=== PATIENT | male | born 1955 | race African-American/Black ===

== ENCOUNTER 2016-11-16 17:06 | Inpatient (IN) | payer MEDICAID ==
[~2016-11-16] VITALS: Ht 160 cm; Wt 45.2 kg
[~2016-11-16 17:06] MED LIST: DILA4TAB10 PO; MOTR200T PO
[2016-11-16 17:13] VITALS: BP 141/90; PULSE 84; RESP 16; TEMP 97.7
[2016-11-16] MEDS ORDERED: SODIUM CHLOR 0.9% 1000 ML INJ 1,000 ML IV ONE ×2 (17:14→17:44)
[2016-11-16] MEDS ORDERED: DEXTROSE 50% IN WATER 50 ML SYRINGE IV ONE ×2 (17:15→19:30)
--- NOTE | 2016-11-16 17:18 | PD ---
HPI Chief Complaint: Altered Mental Status Time Seen by Provider: 17:17 Travel History International Travel<30 days: No Contact w/Intl Traveler<30days: No Traveled to known affect area: No History of Present Illness HPI 61-year-old Afro-[place]ian male with history of small cell cancer is brought in via EMS with altered mental status. Patient was essentially found unresponsive with a blood sugar 16. He has no history of diabetes in the past. States she has been taking his oxycodone for his cancer pain, and was recently treated for the oncology department on 19 October. 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 Patient continues to smoke and drink alcohol according to the last oncology note. Patient's blood sugar upon arrival 65. He is responsive and talkative although somewhat lethargic. Patient complains of pain "all over". He appears extremely dehydrated, but makes good eye contact. Patient does have a history of mood disorder and suicidal ideation in the past. Patient states he has had no alcohol today. Patient states he has had seizures in the past but not drinking. He is unsure if he had a seizure today. He has allergies to penicillin. PFSH Past Medical History Blood Disorders: No Heart Rhythm Problems: No Cancer: Yes (NEWLY DIAGNOSED 12/16/15) Cardiovascular Problems: Yes High Cholesterol: Yes Chest Pain: No Congestive Heart Failure: No Diabetes: No Diminished Hearing: No Endocrine: No Genitourinary: No Hypertension: Yes Immune Disorder: No Musculoskeletal: Yes (PLATES IN BILATERAL JAW) Neurologic: No Psychiatric: No Reproductive: No Respiratory: No Immunizations Current: Yes Past Surgical History AICD: No Joint Replacement: No Pacemaker: No Other Surgery: Yes (LEFT AND RIGHT JAW FRACTURE WITH PLATES) Social History Alcohol Use: Yes (3 DRINKS A DAY) Tobacco Use: Yes (2-3 CIG PER DAY) Substance Use: Yes (MARIJUANA DAILY and cocaine) Allergies-Medications (Allergen,Severity, Reaction): Coded Allergies: Penicillin (Verified Allergy, Severe, Hives, 01/12/16) Per pt. Reported Meds & Prescriptions Reported Meds & Active Scripts Active Reported Dilaudid (Hydromorphone HCl) 4 Mg Tab 1-2 Tab PO Q3HR PRN Ibuprofen 200 Mg Tab 1-2 Tab PO DAILY PRN Review of Systems ROS Limitations: Altered Mental Status, Poor Historian Except as stated in HPI: all other systems reviewed are Neg General / Constitutional: No: Fever Eyes: No: Visual changes HENT: No: Headaches Cardiovascular: No: Chest Pain or Discomfort Respiratory: No: Shortness of Breath Gastrointestinal: No: Abdominal Pain Genitourinary: No: Dysuria Musculoskeletal: No: Pain Skin: No Rash Neurologic: No: Weakness Psychiatric: No: Depression Endocrine: No: Polydipsia Hematologic/Lymphatic: No: Easy Bruising Physical Exam Exam Limitations: Altered Mental Status, Poor Historian Narrative GENERAL: Patient is arousable but lethargic. He appears alert and oriented 3. He answers questions appropriately does not appear intoxicated SKIN: Warm and dry. Poor pallor. Very Poor turgor. Tenting present. HEAD: Atraumatic. Normocephalic. EYES: Pupils equal and round. No scleral icterus. No injection or drainage. ENT: No nasal bleeding or discharge. Mucous membranes pink and dry. Pharynx is clear. Airway is patent. NECK: Trachea midline. Supple and nontender. No palpable masses. CARDIOVASCULAR: Regular rate and rhythm. No murmurs gallops or rubs. RESPIRATORY: No accessory muscle use. Clear to auscultation. Breath sounds equal bilaterally. GASTROINTESTINAL: Abdomen soft, non-tender, nondistended. Hepatic and splenic margins not palpable. MUSCULOSKELETAL: Extremities without clubbing, cyanosis, or edema. No obvious deformities. NEUROLOGICAL: Awake and alert. No obvious cranial nerve deficits. Motor grossly within normal limits. Five out of 5 muscle strength in the arms and legs. Normal speech. PSYCHIATRIC: Appropriate mood and affect; insight and judgment normal. Patient denies suicidal or homicidal ideation. He denies recent alcohol or drug use. Data Data Last Documented VS Vital Signs Date Time Temp Pulse Resp B/P Pulse Ox O2 Delivery O2 Flow Rate FiO2 11/16/16 19:04 96 Nasal Cannula 2 11/16/16 17:13 97.7 84 16 141/90 Orders Electrocardiogram (11/16/16 17:14) Complete Blood Count With Diff (11/16/16 17:14) Comprehensive Metabolic Panel (11/16/16 17:14) Magnesium (Mg) (11/16/16 17:14) Phosphorus (Po4) (11/16/16 17:14) Beta Hydroxybutyrate (Acetone) (11/16/16 17:14) Osmolality,Serum (11/16/16 17:14) Lactic Acid (11/16/16 17:14) Urinalysis - C+S If Indicated (11/16/16 17:14) Blood Glucose (11/16/16 17:14) Blood Glucose (11/16/16 17:44) Ecg Monitoring (11/16/16 17:14) Iv Access Insert/Monitor (11/16/16 17:14) Oximetry (11/16/16 17:14) NPO (11/16/16 17:14) Sodium Chlor 0.9% 1000 Ml Inj (Ns 1000 M (11/16/16 17:14) Sodium Chlor 0.9% 1000 Ml Inj (Ns 1000 M (11/16/16 17:44) Sodium Chloride 0.9% Flush (Ns Flush) (11/16/16 17:15) Troponin I (11/16/16 17:14) Lipase (11/16/16 17:14) Dextrose 50% In Shirin (Syr) Inj (D50w (Syr (11/16/16 17:15) Ammonia (11/16/16 17:16) Blood Culture (11/16/16 17:16) Chest, Single Ap (11/16/16 17:16) Drug Screen, Random Urine (11/16/16 17:16) Alcohol (Ethanol) (11/16/16 17:16) Ct Brain W/O Iv Contrast(Rout) (11/16/16 17:27) Urine Culture (11/16/16 17:40) Levofloxacin 500 Mg Premix Inj (Levaquin (11/16/16 19:00) Lactulose Liq (Lactulose Liq) (11/16/16 19:15) Dextrose 50% In Shirin (Syr) Inj (D50w (Syr (11/16/16 19:30) Thiamine Inj (Thiamine Inj) (11/16/16 19:30) Cefepime Inj (Maxipime Inj) (11/16/16 19:45) Sodium Chlor 0.9% 1000 Ml Inj (Ns 1000 M (11/16/16 19:48) Insert Temp Sensing Richards Cath (11/16/16 19:52) Labs Laboratory Tests Test 11/16/16 11/16/16 17:40 18:08 White Blood Count 7.2 TH/MM3 Red Blood Count 4.81 MIL/MM3 Hemoglobin 16.3 GM/DL Hematocrit 50.6 % Mean Corpuscular Volume 105.4 FL Mean Corpuscular Hemoglobin 34.0 PG Mean Corpuscular Hemoglobin 32.2 % Concent Red Cell Distribution Width 14.3 % Platelet Count 61 TH/MM3 Mean Platelet Volume 10.2 FL Neutrophils (%) (Auto) 84.5 % Lymphocytes (%) (Auto) 4.7 % Monocytes (%) (Auto) 10.6 % Eosinophils (%) (Auto) 0.0 % Basophils (%) (Auto) 0.2 % Neutrophils # (Auto) 6.1 TH/MM3 Lymphocytes # (Auto) 0.3 TH/MM3 Monocytes # (Auto) 0.8 TH/MM3 Eosinophils # (Auto) 0.0 TH/MM3 Basophils # (Auto) 0.0 TH/MM3 CBC Comment AUTO DIFF Differential Total Cells 100 Counted Neutrophils % (Manual) 75 % Band Neutrophils % 6 % Lymphocytes % 4 % Monocytes % 9 % Neutrophils # (Manual) 6.3 TH/MM3 Metamyelocytes 4 % Myelocytes 2 % Differential Comment FINAL DIFF MANUAL Atypical Lymphocytes % Platelet Estimate LOW Platelet Morphology Comment ENLARGED [place] Cells 1+ Urine Color YELLOW Urine Turbidity HAZY Urine pH 5.5 Urine Specific [place] 1.014 Urine Protein 30 mg/dL Urine Glucose (UA) NEG mg/dL Urine Ketones NEG mg/dL Urine Occult Blood LARGE Urine Nitrite NEG Urine Bilirubin NEG Urine Urobilinogen LESS THAN 2.0 MG/DL Urine Leukocyte Esterase NEG Urine RBC 24 /hpf Urine WBC 15 /hpf Urine Bacteria RARE /hpf Urine Hyaline Casts 50 /lpf Urine Sperm OCC Microscopic Urinalysis Comment CULTURE INDICATED Sodium Level 144 MEQ/L Potassium Level 5.0 MEQ/L Chloride Level 110 MEQ/L Carbon Dioxide Level 22.0 MEQ/L Anion Gap 12 MEQ/L Blood Urea Nitrogen 143 MG/DL Creatinine 2.57 MG/DL Estimat Glomerular Filtration 31 ML/MIN Rate Random Glucose 165 MG/DL Serum Osmolality 354 MOSM/KG Lactic Acid Level 1.7 mmol/L Calcium Level 7.7 MG/DL Phosphorus Level 7.3 MG/DL Magnesium Level 3.0 MG/DL Total Bilirubin 5.1 MG/DL Aspartate Amino Transf 2362 U/L (AST/SGOT) Alanine Aminotransferase 1198 U/L (ALT/SGPT) Alkaline Phosphatase 1123 U/L Troponin I 1.06 NG/ML Total Protein 4.8 GM/DL Albumin 2.3 GM/DL Lipase 337 U/L B-Hydroxybutyrate 0.18 MMOL/L Ammonia 108 MCMOL/L [facility] Medical Decision Making Medical Screen Exam Complete: Yes Emergency Medical Condition: Yes Medical Record Reviewed: Yes Differential Diagnosis Seizure. Altered mental status. Dehydration. Electrolyte imbalance. Narrative Course Patient is felt to be septic. Labs ordered including CBC, CMP, lactic acid, ammonia level, cardiac panel, blood cultures 2, serum osmolality and urinalysis. Urine drug screen and serum alcohol level is ordered. Beta hydroxybutyrate is also ordered. Chest x-ray, EKG, and CT of the head is ordered. IV access is obtained and the patient is given 1 amp of D50, and 2 L normal saline IV bolus. Urinalysis shows possible urinary tract infection. IV cefepime 1 g IV is ordered. CBC shows no obvious leukocytosis, but there is a right shift. Platelets are low at 61. CMP shows normal electrolytes, but a BUN of 143, creatinine of 2.57, and glucose 165, calcium is 7.7, phosphorus 7.3, magnesium 3.0, total bilirubin was 5.1, AST is 2362, ALP is 1198, alkaline phosphatase is 1123, troponin is 1.06. Ammonia level is elevated at 108, and serum osmolality is 354. Lactic acid is 1.7. Patient is discussed with Dr. Lozoya at 2100 hrs. EKG is reviewed showing normal sinus rhythm with PVCs. She recommends a third liter of normal saline, as well as thiamine 100 mg IV, as well as lactulose 30 mg liquid by mouth. She recommended a Richards but the patient refused. Call was placed to the senior project architect, and Dr. Alexander spoke with Dr. Cazares who accepted the patient for admission. Diagnosis Primary Impression: Altered mental status Qualified Code: R40.0 - Somnolence Additional Impressions: Acute hepatitis Hepatorenal syndrome Severe dehydration Sepsis Qualified Code: A41.9 - Sepsis, due to unspecified organism Admitting Information Admitting Physician Requests: Admit Condition: Stable Nikita Berman Nov 16, 2016 17:17
--- NOTE | 2016-11-16 17:38 | RADRPT ---
EXAM DATE/TIME: 11/16/2016 17:26 [facility] COMPARISON: CHEST PA & LAT, December 16, 2015, 9:19. CHEST SINGLE AP, May 10, 2015, 11:53. INDICATIONS : Syncope MEDICAL HISTORY : Hypertension. SURGICAL HISTORY : Left mandible, infusaport ENCOUNTER: Initial ACUITY: 1 day PAIN SCORE: Non-responsive. LOCATION: Bilateral chest FINDINGS: A single view of the chest demonstrates the lungs to be symmetrically aerated without evidence of mas s, infiltrate or effusion. A large bleb is again noted left lung. There has been interval placement of a right-sided implantable port catheter. There are overlying echocardiogram leads and oxygen tubin g. There is an old fracture deformity left clavicle. The cardiomediastinal contours are unremarkable. Osseous structures are intact. CONCLUSION: 1. No acute cardiopulmonary disease. 2. Stable large bleb in the left lung. Rizwan Tyson MD on November 16, 2016 at 17:35 Board Certified Radiologist. This report was verified electronically.
[2016-11-16 18:29] LABS: BACTERIA, URINE RARE /hpf; BLOOD, URINE LARGE (NEG); COMMENT (UR) CULTURE INDICATED; CULTURE IF INDICATED CULTURE INDICATED; GLUCOSE,URINE NEG (NEG); HYALINE CAST, URINE 50 /lpf (RARE); KETONE, URINE NEG (NEG); NITRITE,URINE NEG (NEG); PH, URINE 5.5 (5.0-8.5); URINE COLOR YELLOW (YELLW/STRAW)
[2016-11-16 18:48] LABS: ANION GAP 12 MEQ/L (5-15)
[2016-11-16 18:54] LABS: AUTOMATED NEUTROPHIL # 6.1 TH/MM3 (1.8-7.7); BASOPHIL % 0.2 % (0.0-2.0); HEMATOCRIT 50.6 % (39.0-51.0); LYMPH % 4.7 % (9.0-44.0); LYMPHOCYTE # 0.3 TH/MM3 (1.0-4.8); MEAN CELL VOLUME 105.4 FL (80.0-100.0); MEAN CORPUSCULAR HGB CONC 32.2 % (32.0-36.0); MONO % 10.6 % (0.0-8.0); NEUT % 84.5 % (16.0-70.0); PLATELET COUNT 61 TH/MM3 (150-450); RED BLOOD COUNT 4.81 MIL/MM3 (4.50-5.90); RED CELL DISTRIBUTION WIDTH 14.3 % (11.6-17.2); WHITE BLOOD COUNT 7.2 TH/MM3 (4.0-11.0)
[2016-11-16 19:00] VITALS: BP 136/87; PULSE 88; RESP 18; O2SAT 98
[2016-11-16] MEDS ORDERED: LEVOFLOXACIN 500 MG PREMIX INJ 100 ML IV ONE (19:00)
[2016-11-16 19:04] VITALS: O2SAT 96
[2016-11-16 19:10] LABS: BETA-HYDROXYBUTYRATE 0.18 MMOL/L (0.00-0.39); BLOOD UREA NITROGEN 143 MG/DL (7-18); CHLORIDE 110 MEQ/L (98-107); GLOMERULAR FILTRATION RATE 31 ML/MIN (>89); SODIUM (NA) 144 MEQ/L (136-145); TOTAL BILIRUBIN ADULT 5.1 MG/DL (0.2-1.0)
[2016-11-16] MEDS ORDERED: LACTULOSE SYRUP 20 GM/30 ML CUP PO ONE (19:15)
[2016-11-16 19:17] LABS: ALKALINE PHOSPHATASE 1123 U/L (45-117); ALT (GPT) 1198 U/L (12-78)
--- NOTE | 2016-11-16 19:20 | RADRPT ---
EXAM DATE/TIME: 11/16/2016 19:06 [facility] COMPARISON: CT BRAIN W/O CONTRAST, May 10, 2015, 13:05. INDICATIONS : Altered mental status. RADIATION DOSE: 33.09 CTDIvol (mGy) MEDICAL HISTORY : Hypertension. Carcinoma, not otherwise specified. SURGICAL HISTORY : None. ENCOUNTER: Initial ACUITY: 1 day PAIN SCALE: Non-responsive LOCATION: cranial TECHNIQUE: Multiple contiguous axial images were obtained of the head. Using automated exposure control and adjustment of the mA and/or kV according to patient size, radiation dose was kept as low as reasonably achievable to obtain optimal diagnostic quality images. FINDINGS: There is no evidence for intracranial hemorrhage, mass effect, mass lesions, or edema. The visualize d bony structures appear intact. Slight degree of brain atrophy is seen. Slight periventricular whit e matter changes are seen nonspecific mostly consistent with chronic small vessel ischemic changes. There are no signs of acute infarction for technique. CONCLUSION: Slight atrophic and small vessel ischemic changes without any evidence for acute hemorrhage or mass effect. Davin Salinas MD on November 16, 2016 at 19:17 Board Certified Radiologist. This report was verified electronically.
[2016-11-16 19:25] LABS: HEMO FLAGS AUTO DIFF
[2016-11-16] MEDS ORDERED: THIAMINE INJ 100 MG in SODIUM CHLORIDE 0.9% INJ 100 ML IV ONE (19:30)
--- NOTE | 2016-11-16 19:38 | PD ---
Physical Exam Date Seen by Provider: Nov 16, 2016 Time Seen by Provider: 18:30 Narrative I, Dr. Luna, have reviewed the advance practice practitioner's documentation and am in agreement, met with the patient face to face, made the diagnosis, and the medical decision making was done by me. *My assessment and Findings: Patient seen and evaluated with PA, please see PA note for further details. Here for significant hypoglycemia, disorientation, improved with glucose. On evaluation, patient is fairly cachectic, states he has not been eating or drinking well and I suspect that he may be significantly dehydrated with electrolyte abnormalities. Initial IV fluids and lab work was ordered. Workup was ordered. Patient will likely need to be admitted for further treatment. Laboratory Tests Test 11/16/16 11/16/16 17:40 18:08 Mean Corpuscular Volume 105.4 FL (80.0-100.0) Platelet Count 61 TH/MM3 (150-450) Neutrophils (%) (Auto) 84.5 % (16.0-70.0) Lymphocytes (%) (Auto) 4.7 % (9.0-44.0) Monocytes (%) (Auto) 10.6 % (0.0-8.0) Lymphocytes # (Auto) 0.3 TH/MM3 (1.0-4.8) Urine Turbidity HAZY (CLEAR) Urine Protein 30 mg/dL (NEG-TRACE) Urine Occult Blood LARGE (NEG) Urine RBC 24 /hpf (0-3) Urine WBC 15 /hpf (0-5) Urine Bacteria RARE /hpf (NONE) Urine Sperm OCC (NONE) Serum Osmolality 354 MOSM/KG (275-295) Ammonia 108 MCMOL/L (11-32) Last [address] 11/16/161726 Signed Impressions: Service Date/Time: October 19:06 - CONCLUSION: Slight atrophic and small vessel ischemic changes without any evidence for acute hemorrhage or mass effect. Davin Salinas MD Chest X-Ray 11/16/166 Signed Impressions: Service Date/Time: October 17:26 - CONCLUSION: 1. No acute cardiopulmonary disease. 2. Stable large bleb in the left lung. Rizwan Tyson MD He has a UTI and IV antibiotics have been ordered for the patient. Awaiting metabolic panel for further treatment and admission. Data Data Last Documented VS Vital Signs Date Time Temp Pulse Resp B/P Pulse Ox O2 Delivery O2 Flow Rate FiO2 11/16/16 19:04 96 Nasal Cannula 2 11/16/16 17:13 97.7 84 16 141/90 Orders Electrocardiogram (11/16/16 17:14) Complete Blood Count With Diff (11/16/16 17:14) Comprehensive Metabolic Panel (11/16/16 17:14) Magnesium (Mg) (11/16/16 17:14) Phosphorus (Po4) (11/16/16 17:14) Beta Hydroxybutyrate (Acetone) (11/16/16 17:14) Osmolality,Serum (11/16/16 17:14) Lactic Acid (11/16/16 17:14) Urinalysis - C+S If Indicated (11/16/16 17:14) Blood Glucose (11/16/16 17:14) Blood Glucose (11/16/16 17:44) Ecg Monitoring (11/16/16 17:14) Iv Access Insert/Monitor (11/16/16 17:14) Oximetry (11/16/16 17:14) NPO (11/16/16 17:14) Sodium Chlor 0.9% 1000 Ml Inj (Ns 1000 M (11/16/16 17:14) Sodium Chlor 0.9% 1000 Ml Inj (Ns 1000 M (11/16/16 17:44) Sodium Chloride 0.9% Flush (Ns Flush) (11/16/16 17:15) Troponin I (11/16/16 17:14) Lipase (11/16/16 17:14) Dextrose 50% In Shirin (Syr) Inj (D50w (Syr (11/16/16 17:15) Ammonia (11/16/16 17:16) Blood Culture (11/16/16 17:16) Chest, Single Ap (11/16/16 17:16) Drug Screen, Random Urine (11/16/16 17:16) Alcohol (Ethanol) (11/16/16 17:16) Ct Brain W/O Iv Contrast(Rout) (11/16/16 17:27) Urine Culture (11/16/16 17:40) Levofloxacin 500 Mg Premix Inj (Levaquin (11/16/16 19:00) Lactulose Liq (Lactulose Liq) (11/16/16 19:15) Dextrose 50% In Shirin (Syr) Inj (D50w (Syr (11/16/16 19:30) Thiamine Inj (Thiamine Inj) (11/16/16 19:30) Labs Laboratory Tests Test 11/16/16 11/16/16 17:40 18:08 White Blood Count 7.2 TH/MM3 Red Blood Count 4.81 MIL/MM3 Hemoglobin 16.3 GM/DL Hematocrit 50.6 % Mean Corpuscular Volume 105.4 FL Mean Corpuscular Hemoglobin 34.0 PG Mean Corpuscular Hemoglobin 32.2 % Concent Red Cell Distribution Width 14.3 % Platelet Count 61 TH/MM3 Mean Platelet Volume 10.2 FL Neutrophils (%) (Auto) 84.5 % Lymphocytes (%) (Auto) 4.7 % Monocytes (%) (Auto) 10.6 % Eosinophils (%) (Auto) 0.0 % Basophils (%) (Auto) 0.2 % Neutrophils # (Auto) 6.1 TH/MM3 Lymphocytes # (Auto) 0.3 TH/MM3 Monocytes # (Auto) 0.8 TH/MM3 Eosinophils # (Auto) 0.0 TH/MM3 Basophils # (Auto) 0.0 TH/MM3 CBC Comment AUTO DIFF Urine Color YELLOW Urine Turbidity HAZY Urine pH 5.5 Urine Specific [place] 1.014 Urine Protein 30 mg/dL Urine Glucose (UA) NEG mg/dL Urine Ketones NEG mg/dL Urine Occult Blood LARGE Urine Nitrite NEG Urine Bilirubin NEG Urine Urobilinogen LESS THAN 2.0 MG/DL Urine Leukocyte Esterase NEG Urine RBC 24 /hpf Urine WBC 15 /hpf Urine Bacteria RARE /hpf Urine Hyaline Casts 50 /lpf Urine Sperm OCC Microscopic Urinalysis Comment CULTURE INDICATED Serum Osmolality 354 MOSM/KG Lactic Acid Level 1.7 mmol/L Ammonia 108 MCMOL/L [facility] Medical Record Reviewed: Yes Supervised Visit with KHANH: Yes Diagnosis Primary Impression: Severe dehydration Additional Impressions: Hypoglycemia UTI (urinary tract infection) Admitting Information Admitting Physician Requests: Chris Bustos MD Nov 16, 2016 19:37
[2016-11-16 19:39] LABS: BANDS 6 % (0-6); METAMYELOCYTES 4 % (0-1); MYELOCYTES 2 % (0-0); NEUTROPHIL # MANUAL DIFF 6.3 TH/MM3 (1.8-7.7); PLATELET ESTIMATE SMEAR LOW (NORMAL); POLYS (SEG NEUTROPHILS) 75 % (16-70); SCAN/DIFF FINAL DIFF MANUAL; WBC DIFF SAMPLE 100
[2016-11-16 19:40] LABS: BURR CELLS 1+ (NORMAL)
[2016-11-16 19:41] LABS: PLATELET MORPHOLOGY ENLARGED (NORMAL)
[2016-11-16] MEDS ORDERED: CEFEPIME INJ 1,000 MG in SODIUM CHLORIDE 0.9% INJ 100 ML IV ONE (19:45)
[2016-11-16] MEDS ORDERED: SODIUM CHLOR 0.9% 1000 ML INJ 1,000 ML IV SCH (19:48)
[2016-11-16 20:01] LABS: AST (GOT) 2362 U/L (15-37)
--- NOTE | 2016-11-16 20:05 | PD ---
Physical Exam Date Seen by Provider: Nov 16, 2016 Time Seen by Provider: 19:54 Narrative 61-year-old male came to the emergency room brought by EMS with cachexia, failure to thrive, history of cancer and chronic pain. Patient was initially seen by the PA and since 7 PM I have been supervising him. Patient has been hypoglycemic and has received D50 times twice so far. He has also received 2 L of IV fluid bolus. He is getting antibiotic as per sepsis protocol as well. Lab work has been slowly coming back and they're grossly abnormal. Patient has significant left-sided shift of his WBC count. Platelet count is low. Chemistries suggestive off liver failure/acute hepatitis. Ammonia is very high along with serum osmolality. I asked the PA to give a third liter of IV fluid bolus, repeat blood glucose at 8 PM, he'll actually low and a Richards catheter for urine output monitoring. I went and saw the patient little bit ago and he looks extremely cachectic but he has been answering questions appropriately. He is jaundiced and says that he cannot warm up. Patient will need to be admitted to the ICU. Currently awaiting for the parts back counter man to call back. His troponin is elevated as well but I think it's part of his dehydration and sepsis. Data Data Last Documented VS Vital Signs Date Time Temp Pulse Resp B/P Pulse Ox O2 Delivery O2 Flow Rate FiO2 11/16/16 19:04 96 Nasal Cannula 2 11/16/16 19:00 88 18 136/87 11/16/16 17:13 97.7 Orders Electrocardiogram (11/16/16 17:14) Complete Blood Count With Diff (11/16/16 17:14) Comprehensive Metabolic Panel (11/16/16 17:14) Magnesium (Mg) (11/16/16 17:14) Phosphorus (Po4) (11/16/16 17:14) Beta Hydroxybutyrate (Acetone) (11/16/16 17:14) Osmolality,Serum (11/16/16 17:14) Lactic Acid (11/16/16 17:14) Urinalysis - C+S If Indicated (11/16/16 17:14) Blood Glucose (11/16/16 17:14) Blood Glucose (11/16/16 17:44) Ecg Monitoring (11/16/16 17:14) Iv Access Insert/Monitor (11/16/16 17:14) Oximetry (11/16/16 17:14) NPO (11/16/16 17:14) Sodium Chlor 0.9% 1000 Ml Inj (Ns 1000 M (11/16/16 17:14) Sodium Chlor 0.9% 1000 Ml Inj (Ns 1000 M (11/16/16 17:44) Sodium Chloride 0.9% Flush (Ns Flush) (11/16/16 17:15) Troponin I (11/16/16 17:14) Lipase (11/16/16 17:14) Dextrose 50% In Shirin (Syr) Inj (D50w (Syr (11/16/16 17:15) Ammonia (11/16/16 17:16) Blood Culture (11/16/16 17:16) Chest, Single Ap (11/16/16 17:16) Drug Screen, Random Urine (11/16/16 17:16) Alcohol (Ethanol) (11/16/16 17:16) Ct Brain W/O Iv Contrast(Rout) (11/16/16 17:27) Urine Culture (11/16/16 17:40) Levofloxacin 500 Mg Premix Inj (Levaquin (11/16/16 19:00) Lactulose Liq (Lactulose Liq) (11/16/16 19:15) Dextrose 50% In Shirin (Syr) Inj (D50w (Syr (11/16/16 19:30) Thiamine Inj (Thiamine Inj) (11/16/16 19:30) Cefepime Inj (Maxipime Inj) (11/16/16 19:45) Sodium Chlor 0.9% 1000 Ml Inj (Ns 1000 M (11/16/16 19:48) Insert Temp Sensing Richards Cath (11/16/16 19:52) Admit Order (Ed Use Only) (11/16/16 20:04) Dextrose 5%-Lactated Ring Inj (D5-Lr Inj (11/16/16 21:06) Labs Laboratory Tests Test 11/16/16 11/16/16 17:40 18:08 White Blood Count 7.2 TH/MM3 Red Blood Count 4.81 MIL/MM3 Hemoglobin 16.3 GM/DL Hematocrit 50.6 % Mean Corpuscular Volume 105.4 FL Mean Corpuscular Hemoglobin 34.0 PG Mean Corpuscular Hemoglobin 32.2 % Concent Red Cell Distribution Width 14.3 % Platelet Count 61 TH/MM3 Mean Platelet Volume 10.2 FL Neutrophils (%) (Auto) 84.5 % Lymphocytes (%) (Auto) 4.7 % Monocytes (%) (Auto) 10.6 % Eosinophils (%) (Auto) 0.0 % Basophils (%) (Auto) 0.2 % Neutrophils # (Auto) 6.1 TH/MM3 Lymphocytes # (Auto) 0.3 TH/MM3 Monocytes # (Auto) 0.8 TH/MM3 Eosinophils # (Auto) 0.0 TH/MM3 Basophils # (Auto) 0.0 TH/MM3 CBC Comment AUTO DIFF Differential Total Cells 100 Counted Neutrophils % (Manual) 75 % Band Neutrophils % 6 % Lymphocytes % 4 % Monocytes % 9 % Neutrophils # (Manual) 6.3 TH/MM3 Metamyelocytes 4 % Myelocytes 2 % Differential Comment FINAL DIFF MANUAL Atypical Lymphocytes % Platelet Estimate LOW Platelet Morphology Comment ENLARGED [place] Cells 1+ Urine Color YELLOW Urine Turbidity HAZY Urine pH 5.5 Urine Specific [place] 1.014 Urine Protein 30 mg/dL Urine Glucose (UA) NEG mg/dL Urine Ketones NEG mg/dL Urine Occult Blood LARGE Urine Nitrite NEG Urine Bilirubin NEG Urine Urobilinogen LESS THAN 2.0 MG/DL Urine Leukocyte Esterase NEG Urine RBC 24 /hpf Urine WBC 15 /hpf Urine Bacteria RARE /hpf Urine Hyaline Casts 50 /lpf Urine Sperm OCC Microscopic Urinalysis Comment CULTURE INDICATED Sodium Level 144 MEQ/L Potassium Level 5.0 MEQ/L Chloride Level 110 MEQ/L Carbon Dioxide Level 22.0 MEQ/L Anion Gap 12 MEQ/L Blood Urea Nitrogen 143 MG/DL Creatinine 2.57 MG/DL Estimat Glomerular Filtration 31 ML/MIN Rate Random Glucose 165 MG/DL Serum Osmolality 354 MOSM/KG Lactic Acid Level 1.7 mmol/L Calcium Level 7.7 MG/DL Phosphorus Level 7.3 MG/DL Magnesium Level 3.0 MG/DL Total Bilirubin 5.1 MG/DL Aspartate Amino Transf 2362 U/L (AST/SGOT) Alanine Aminotransferase 1198 U/L (ALT/SGPT) Alkaline Phosphatase 1123 U/L Total Creatine Kinase 999 U/L Creatine Kinase MB 7.4 NG/ML Creatine Kinase MB % 0.7 % Troponin I 1.06 NG/ML Total Protein 4.8 GM/DL Albumin 2.3 GM/DL Lipase 337 U/L Salicylates Level LESS THAN 1.7 MG/DL Urine Opiates Screen NEG Urine Barbiturates Screen NEG Urine Amphetamines Screen NEG Urine Benzodiazepines Screen NEG Urine Cocaine Screen POS Urine Cannabinoids Screen POS B-Hydroxybutyrate 0.18 MMOL/L Ammonia 108 MCMOL/L Vitamin B12 Level GREATER THAN 2000 PG/ML Folate GREATER THAN 20.0 NG/ML Acetaminophen Level LESS THAN 2.0 MCG/ML Ethyl Alcohol Level LESS THAN 3 MG/DL MDM Supervised Visit with KHANH: Yes Critical Care Narrative Aggregate critical care time was 30 minutes. Time to perform other separately billable procedures was not included in the critical care time. My time did not include minutes spent treating any other patients simultaneously or on activities that did not directly contribute to the patient's treatment. The services I provided to this patient were to treat and/or prevent clinically significant deterioration that could result in: Sepsis, severe dehydration, acute hepatitis, failure to thrive I provided critical care services requiring my management, as noted below: Chart data review, documentation time, medication orders and management, vital sign assessments/reviewing monitor data, ordering and reviewing lab tests, ordering and interpreting/reviewing x-rays and diagnostic studies, care of the patient and discussion of the patient with the admitting physicians. Physician Communication Physician Communication Dr. Cazares Diagnosis Primary Impression: Severe dehydration Additional Impressions: Hypoglycemia UTI (urinary tract infection) Sepsis Qualified Code: A41.9 - Sepsis, due to unspecified organism Acute hepatitis Failure to thrive in adult stool Hemoccult positive Hyperammonemia Altered mental status Qualified Code: R40.0 - Somnolence Hepatorenal syndrome Admitting Information Admitting Physician Requests: Leta Flores MD Nov 16, 2016 20:05
[2016-11-16] MEDS: SODIUM CHLORIDE 0.9% FLUSH 10 ML FLUSH IVF PRN ×2 (20:16→21:59)
[2016-11-16 20:18] LABS: AMPHETAMINE, URINE NEG (NEG); BARBITURATES, URINE NEG (NEG); COCAINE, URINE POS (NEG)
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
[2016-11-16] MEDS ORDERED: DEXTROSE 5%-LACTATED RING INJ 1,000 ML IV SCH (21:06)
[2016-11-16] MEDS ORDERED: DIATRIZOATE MEGLUM/DIATRIZOATE SOD 9 ML CUP PO ONE (21:45)
[2016-11-16] MEDS: HYDROmorphone HCL PF 1 MG/ML VIAL IV PUSH PRN (21:59)
[2016-11-16 22:00] VITALS: BP 124/81; PULSE 80; RESP 18; O2SAT 96
[2016-11-16] MEDS ORDERED: RESP: ALBUTEROL 2.5 MG/3 ML NEB (PRN) INH (22:15)
[2016-11-16] MEDS ORDERED: MISCELLANEOUS NURSING INFORMATION XX SCH (22:15)
[2016-11-16] MEDS ORDERED: BISACODYL 10 MG SUPP RECTAL PRN (22:15)
[2016-11-16] MEDS ORDERED: CHLORHEXIDINE GLUCONATE 2 % 1 PACK (2 CLOTHS) TOP PRN (22:15)
[2016-11-16] MEDS ORDERED: ONDANSETRON HCL 4 MG/2 ML VIAL IV PRN (22:15)
[2016-11-16] MEDS ORDERED: SODIUM CHLORIDE 0.9% FLUSH 10 ML FLUSH PRN (22:15)
[2016-11-16] MEDS: RIFAXIMIN 550 MG TAB PO SCH (22:15)
[2016-11-16] MEDS: DEXT 5%-NACL 0.9% 1000 ML INJ 1,000 ML IV SCH (22:17)
--- NOTE | 2016-11-16 23:42 | RADRPT ---
EXAM DATE/TIME: 11/16/2016 22:10 [facility] COMPARISON: No previous studies available for comparison. INDICATIONS : Cirrhosis. MEDICAL HISTORY : Hypercholesterolemia. Hypertension. Substance use. Cancer. SURGICAL HISTORY : Plates in bilateral jaw. ENCOUNTER: Initial ACUITY: 1 day PAIN SCORE: 8/10 LOCATION: Bilateral upper quadrant MEASUREMENTS: LIVER: 13.4 cm length COMMON DUCT: 3 mm RIGHT KIDNEY: 8.8 x 5.3 x 4.3 cm SPLEEN: 8.1 cm length FINDINGS: LIVER: Small liver with diffusely heterogeneous echotexture noted. No focal hepatic lesion demonstrated. The re is normal flow direction main portal vein. Small ascites is present. COMMON DUCT: No intraluminal mass or stone visualized. GALLBLADDER: Small amount of floating debris within the contained bile. No shadowing stone. Gallbladder wall appro ximately 3 mm, upper limits of normal. Some of the ascites is in the gallbladder fossa. PANCREAS: The visualized portions are within normal limits. RIGHT KIDNEY: Diffusely echogenic. There are cysts measuring 12 mm of the upper pole and 20 mm of the mid zone. SPLEEN: No focal lesion. CONCLUSION: 1. Small and diffusely heterogeneous liver without a focal lesion. There is small ascites but no sple nomegaly. 2. Small sludge/debris within the gallbladder. No evidence of biliary obstruction. 3. Echogenic right kidney typical of chronic parenchymal disease. There is no hydronephrosis. Small, simple/benign cysts are noted. Jose Saucedo MD on November 16, 2016 at 23:37 Board Certified Radiologist. This report was verified electronically.
[2016-11-16 23:45] LABS: CKMB 7.4 NG/ML (0.5-3.6)
[2016-11-17] VITALS (12 sets, daily range): BP systolic 122–154; BP diastolic 85–108; PULSE 58–78; RESP 9–18; TEMP 97.5–98.8; O2SAT 95–99
--- NOTE | 2016-11-17 00:28 | RADRPT ---
EXAM DATE/TIME: 11/16/2016 23:55 [facility] COMPARISON: No previous studies available for comparison. INDICATIONS : Abdominal pain. ORAL CONTRAST: Partial prescribed oral contrast ingested. RADIATION DOSE: 4.52 CTDIvol (mGy) MEDICAL HISTORY : Carcinoma, not otherwise specified. Hypercholesterolemia. Hypertension. SURGICAL HISTORY : None. ENCOUNTER: Initial ACUITY: 1 day PAIN SCALE: 5/10 LOCATION: All quadrants. TECHNIQUE: Volumetric scanning of the abdomen and pelvis was performed. Using automated exposure control and ad justment of the mA and/or kV according to patient size, radiation dose was kept as low as reasonably achievable to obtain optimal diagnostic quality images. FINDINGS: Small liver. No focal hepatic lesions seen. There is small, diffuse ascites. No splenomegaly. Portal vein does not appear appreciably enlarged. Noncontrast appearance of the pancreas, adrenal glands and kidneys within normal limits. No abdominal aortic aneurysm. No perceptible bowel obstruction or acute inflammatory changes. There is moderate s tool throughout the colon. Large, chronic appearing blebs/bullae seen in both visualized lung bases. No effusions or pneumonia s een. Visualized osseous structures are intact. Patient appears diffusely cachectic. There is mild body wall edema/anasarca. Visualized osseous structures are intact. Broad but mainly right paracentral disc protrusion seen at L4/L5 and probably impinging on the transiting right L5 nerve root. Patient is partially sacralized o n the right at L5 with associated mild degenerative changes. CONCLUSION: 1. Small liver with small ascites and diffuse body wall edema/anasarca. 2. No focal lesion or localized inflammatory changes are demonstrated. 3. Large bleb/bullae seen of both visualized lung bases. 4. Lumbar spine findings as above, including a right paracentral disc protrusion at L4/L5. Jose Saucedo MD on November 17, 2016 at 0:19 Board Certified Radiologist. This report was verified electronically.
[2016-11-17 03:39] LABS: APTT (PATIENT) 36.4 SEC (24.3-30.1); INTERNATIONAL NORMALIZED RATIO 2.1 RATIO; PROTHROMBIN TIME - PATIENT 23.9 SEC (9.8-11.6)
[2016-11-17] MEDS: CHLORHEXIDINE GLUCONATE 2 % 1 PACK (2 CLOTHS) TOP SCH (04:00)
[2016-11-17 04:35] LABS: AUTOMATED NEUTROPHIL # 5.3 TH/MM3 (1.8-7.7); BASOPHIL % 0.2 % (0.0-2.0); EOSINOPHIL % 0.1 % (0.0-4.0); HEMATOCRIT 48.8 % (39.0-51.0); LYMPH % 3.6 % (9.0-44.0); LYMPHOCYTE # 0.2 TH/MM3 (1.0-4.8); MEAN CELL VOLUME 104.3 FL (80.0-100.0); MEAN CORPUSCULAR HEMOGLOBIN 34.9 PG (27.0-34.0); MEAN CORPUSCULAR HGB CONC 33.4 % (32.0-36.0); MONO % 7.5 % (0.0-8.0); NEUT % 88.6 % (16.0-70.0); PLATELET COUNT 64 TH/MM3 (150-450); RED BLOOD COUNT 4.68 MIL/MM3 (4.50-5.90); RED CELL DISTRIBUTION WIDTH 14.2 % (11.6-17.2)
[2016-11-17 04:48] LABS: HEMO FLAGS AUTO DIFF
[2016-11-17 05:36] LABS: ALKALINE PHOSPHATASE 1297 U/L (45-117); ALT (GPT) 1271 U/L (12-78); ANION GAP 11 MEQ/L (5-15); AST (GOT) 2130 U/L (15-37); BICARBONATE 22.7 MEQ/L (21.0-32.0); BLOOD UREA NITROGEN 135 MG/DL (7-18); CHLORIDE 113 MEQ/L (98-107); GLOMERULAR FILTRATION RATE 36 ML/MIN (>89); POTASSIUM 4.2 MEQ/L (3.5-5.1); SODIUM (NA) 147 MEQ/L (136-145); TOTAL BILIRUBIN ADULT 6.3 MG/DL (0.2-1.0)
[2016-11-17] MEDS: DEXT 5%-NACL 0.9% 1000 ML INJ 1,000 ML IV SCH (07:15)
--- NOTE | 2016-11-17 07:45 | EKG ---
Date Performed: 11/16/2016 Time Performed: 23:47:00 PTAGE: 61 years EKG: Sinus rhythm Nonspecific T wave changes ABNORMAL ECG COMPARED TO PRIOR ELECTROCARDIOGRAM, Premature ectopic beats are no longer present. PREVIOUS TRACING : 11/16/2016 20.00 DOCTOR: Ganesh Baires Interpretating Date/Time 11/17/2016 07:43:56
--- NOTE | 2016-11-17 07:51 | EKG ---
Date Performed: 11/16/2016 Time Performed: 20:00:21 PTAGE: 61 years EKG: Sinus rhythm WITH Frequent ectopic beats and/or artifact. Nonspecific T wave changes ABNORMAL ECG COMPARED TO GRACIE OR ELECTROCARDIOGRAM, Ectopy is present and T wave changes have worsened. PREVIOUS TRACING : 05/10/2015 11.31 DOCTOR: Ganesh Baires Interpretating Date/Time 11/17/2016 07:49:55
[2016-11-17] MEDS: MULTIVITAMIN TAB PO SCH (08:22)
[2016-11-17] MEDS: PANTOPRAZOLE SODIUM 40 MG VIAL IV SCH (08:22)
[2016-11-17] MEDS: FOLIC ACID 1 MG TAB PO SCH (08:22)
[2016-11-17] MEDS: NYSTAT/DIPHENHY/LIDO MOUTHWASH (Adult) 120ML SWISH-SWAL SCH ×4 (08:23→20:41)
[2016-11-17] MEDS: RIFAXIMIN 550 MG TAB PO SCH ×2 (08:23→20:41)
[2016-11-17] MEDS: DOCUSATE SODIUM 100 MG CAP PO SCH ×2 (08:23→20:40)
[2016-11-17] MEDS: SODIUM CHLORIDE 0.9% FLUSH 10 ML FLUSH SCH ×2 (08:24→20:40)
[2016-11-17 08:53] LABS: BANDS 8 % (0-6); NEUTROPHIL # MANUAL DIFF 5.3 TH/MM3 (1.8-7.7); POLYS (SEG NEUTROPHILS) 80 % (16-70); WBC DIFF SAMPLE 100
[2016-11-17 08:54] LABS: BURR CELLS 1+ (NORMAL); KERATOCYTES OCC (NORMAL); PLATELET ESTIMATE SMEAR LOW (NORMAL); PLATELET MORPHOLOGY NORMAL (NORMAL)
[2016-11-17 08:55] LABS: SCAN/DIFF FINAL DIFF MANUAL
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
--- NOTE | 2016-11-17 10:10 | EKG ---
Date Performed: 11/17/2016 Time Performed: 01:38:52 PTAGE: 61 years EKG: Sinus rhythm Prolonged QT interval Nonspecific T wave changes Low QRS voltages in limb leads Abnormal ECG NO SIGN IFICANT CHANGE FROM PRIOR ELECTROCARDIOGRAM. PREVIOUS TRACING : 11/16/2016 23.47 DOCTOR: Ganesh Baires Interpretating Date/Time 11/17/2016 10:09:49
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
[2016-11-17] MEDS: DEXT 5%-NACL 0.45% 1000 ML INJ 1,000 ML IV SCH ×2 (11:00→21:08)
[2016-11-17 11:55] LABS: INTERNATIONAL NORMALIZED RATIO 1.8 RATIO; PROTHROMBIN TIME - PATIENT 20.9 SEC (9.8-11.6)
[2016-11-17 12:42] LABS: FERRITIN 3505 NG/ML (26-388); TRANSFERRIN IRON PROFILE 98 MG/DL (200-360)
--- NOTE | 2016-11-17 15:54 | EC ---
Study Study Date:11/17/2016 STUDY CONCLUSIONS SUMMARY - Left ventricle: The cavity size was dilated. Wall thickness was normal. Large thrombus in the left ventricle. Systolic function was severely reduced. The estimated ejection fraction was 20%. Wall motion was normal; there were no regional wall motion abnormalities. - Mitral valve: Mild regurgitation. - Tricuspid valve: Mild regurgitation. Impressions: Intracardiac thrombus. If LV function is below 40, please consider prescribing an ACEI or ARB or document rationale for non-use. PROCEDURE DATA STUDY STATUS: Elective. Procedure: Transthoracic echocardiography. Image quality was good. Scanning was performed from the parasternal, apical, and subcostal acoustic windows. Study completion: The patient tolerated the procedure well. Transthoracic echocardiography. M-mode, complete 2D, complete spectral Doppler, and color Doppler. Height: Height: 63in. Weight: Weight: 93.8lb. Body mass index: BMI: 16.7kg/m^2. Body surface area: BSA: 1.4m^2. Patient status: Inpatient. CARDIAC ANATOMY LEFT VENTRICLE: The cavity size was dilated. Wall thickness was normal. Large thrombus in the left ventricle. Systolic function was severely reduced. The estimated ejection fraction was 20%. Wall motion was normal; there were no regional wall motion abnormalities. AORTIC VALVE: Trileaflet; normal thickness leaflets. Doppler: Transvalvular velocity was within the normal range. There was no stenosis. No regurgitation. Valve area: 2.16cm^2(VTI). Indexed valve area: 1.54cm^2/m^2 (VTI). Valve area: 2.37cm^2 (Vmax). Indexed valve area: 1.69cm^2/m^2 (Vmax). Mean gradient: 1mm Hg (S). AORTA: Aortic root: The aortic root was normal in size. MITRAL VALVE: Structurally normal valve. Doppler: Transvalvular velocity was within the normal range. There was no evidence for stenosis. Mild regurgitation. LEFT ATRIUM: The atrium was normal in size. RIGHT VENTRICLE: The cavity size was normal. Wall thickness was normal. PULMONIC VALVE: Doppler: Transvalvular velocity was within the normal range. There was no evidence for stenosis. No regurgitation. TRICUSPID VALVE: Structurally normal valve. Doppler: Transvalvular velocity was within the normal range. Mild regurgitation. PULMONARY ARTERY: The main pulmonary artery was normal-sized. Systolic pressure was within the normal range. RIGHT ATRIUM: The atrium was normal in size. PERICARDIUM: There was no pericardial effusion. SYSTEMIC VEINS: Inferior vena cava: The vessel was normal in size. Patient weight: 93.8lb _Ejection fraction:_ 65-75% _Fractional shortening:_ 32% up to 5Kg 5-11.5Kg 11.6-22.9Kg 23-45Kg 45-57Kg Aortic Root 7-13 <17 13-22 17-27 17-27 LA diam 6-13 <23 24-38 33-47 37-40 RVID 10-17 7-15 7-15 7-18 8-17 LVIDd 12-22 <32 24-38 33-47 37-40 LVPW 2-4 3-6 5-7 6-8 7-8 IVS 2-4 3-6 5-7 6-8 7-8 BASIC MEASUREMENTS ADULT NORMAL Left ventricle LV internal dimension, ED, chordal 44.9 mm 43-52 level, PLAX LV internal dimension, ES, chordal *41.9 mm 23-38 level, PLAX Fractional shortening, chordal level, *7 % >29 PLAX LV posterior wall thickness, ED 9.79 mm IVS/LVPW ratio, ED 0.99 <1.3 Ventricular septum Septal thickness, ED 9.7 mm Aortic valve Leaflet separation 19 mm 15-26 Aorta Root diameter, ED 31 mm Left atrium Anterior-posterior dimension 21 mm Anterior-posterior dimension index 1.5 cm/m^2 <2.2 BASIC MEASUREMENTS ADULT NORMAL Aortic valve Leaflet separation 19 mm 15-26 DOPPLER MEASUREMENTS ADULT NORMAL Main pulmonary artery Pressure, S 22 mm Hg =30 Aortic valve Peak velocity, S 67.6 cm/s Mean velocity, S 44.2 cm/s VTI, S 10.5 cm Mean gradient, S 1 mm Hg Valve area, VTI 2.16 cm^2 Valve area index, VTI 1.54 cm^2/m^2 Valve area, Vmax 2.37 cm^2 Valve area index, Vmax 1.69 cm^2/m^2 Mitral valve Peak E-wave velocity 35 cm/s Peak A-wave velocity 67.1 cm/s Deceleration time *120 ms 150-230 Peak E/A ratio 0.5 Tricuspid valve Regurgitant peak velocity 185 cm/s Peak RV-RA gradient, S 14 mm Hg Maximal regurgitant velocity 185 cm/s Systemic veins Estimated CVP 10 mm Hg Right ventricle RV pressure, S 24 mm Hg <30 Pulmonic valve Peak velocity, S 61.6 cm/s LEGEND: Mean values are shown as u=mean value. Asterisk (*) lopez values outside specified normal range. Prepared and signed by Sunitha Santos [id number]
[2016-11-17] MEDS ORDERED: HEPARIN SODIUM - IV 10,000 UNITS/10 ML VIAL IV STA (17:26)
[2016-11-17] MEDS ORDERED: HEPARIN-D5W INJ 250 ML IV SCH (17:30)
[2016-11-17 18:07] LABS: HEMATOCRIT 47.2 % (39.0-51.0); MEAN CORPUSCULAR HEMOGLOBIN 34.4 PG (27.0-34.0); MEAN CORPUSCULAR HGB CONC 32.7 % (32.0-36.0); PLATELET COUNT 52 TH/MM3 (150-450); RED BLOOD COUNT 4.49 MIL/MM3 (4.50-5.90); RED CELL DISTRIBUTION WIDTH 14.6 % (11.6-17.2); WHITE BLOOD COUNT 5.6 TH/MM3 (4.0-11.0)
[2016-11-17 18:09] LABS: REVIEW FLAG AUTO DIFF
[2016-11-17 18:26] LABS: APTT (PATIENT) 31.6 SEC (24.3-30.1); INTERNATIONAL NORMALIZED RATIO 1.7 RATIO; PROTHROMBIN TIME - PATIENT 19.4 SEC (9.8-11.6)
--- NOTE | 2016-11-17 19:01 | HHI.CCPN ---
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 He underwent chemotherapy (TPF) and radiation in 2015 and had residual disease. He also has a long standing history of alcohol abuse, tobacco abuse, cocaine abuse and has had poor compliance with followup with heme-oncology. He is a very difficult historian and is currently encephalopathic, so it is difficult for me to ascertain what his most recent chemo/radiation history has been. According to notes from Dr. Marc Escalona, 09/15/16 he was supposed to start concurrent chemo/ radiation. Pt states that he has been on radiation therapy 5 days a week as recently as a week ago. He states his last chemo therapy was "earlier this year " but that he has not been following up for chemo. He is homeless and states that he resides in a garage on [address]. He indicates that he has been taking hydromorphone 4 mg tabs for pain and gets 60 tabs a week. He states he ran out 2 days ago and he complains of pain and is repeatedly requesting hydromorphone. He also indicates that he has had difficulty eating because of pain and that, while he takes minimal amounts of Boost and Ensure at baseline, that he has had nothing to eat or drink for about 2 days. States he has never had a PEG (despite recommendations for one) and states "I never want one either ". Denies vomiting. States he has been constipated for about 2 weeks. Has had a slight cough, + chills. Had difficulty recalling last EtOH intake, said it may have been about 2 days ago. ED workup reveals creatinine of 2.57 (baseline 0.9- 1), AST 2300, ALT 1100, total bilirubin 5.1, lipase normal. Ammonia level is 108. Coags not yet performed. Lactic acid was 1.7. Troponin is 1.06. He has received 1/2 amps of D50 x2 for hypoglycemia (POC glucose 58). He has received 3 L NS bolus and was placed on D5 LR in the ED. Received cefepime and Levaquin. 11/17: Remains drowsy, arousable, knows he is at the hospital. Not in any acute distress currently. 2-D echo revealed LV thrombus so he was initiated on heparin for anticoagulation. Objective Vital Signs Date Time Temp Pulse Resp B/P Pulse Ox O2 Delivery O2 Flow Rate FiO2 11/17/16 12:00 97.9 58 18 122/87 95 11/16/16 22:00 Nasal Cannula 11/16/16 19:04 2 Result Diagram: 11/17/16 1745 11/17/16 0358 Other Results Microbiology Date/Time Procedure Status Source Growth 11/16/16 17:40 Urine Culture - Final Complete Urine Clean Catch 50-100,000 CFU/ML MIXED GRAM POSITIVE... Imaging Last Impressions Head CT 11/16/16 1727 Signed Impressions: Service Date/Time: October 19:06 - CONCLUSION: Slight atrophic and small vessel ischemic changes without any evidence for acute hemorrhage or mass effect. Davin Salinas MD Chest X-Ray 11/16/16 1716 Signed Impressions: Service Date/Time: October 17:26 - CONCLUSION: 1. No acute cardiopulmonary disease. 2. Stable large bleb in the left lung. Rizwan Tyson MD Liver Ultrasound 11/16/16 0000 Signed Impressions: Service Date/Time: October 22:10 - CONCLUSION: 1. Small and diffusely heterogeneous liver without a focal lesion. There is small ascites but no splenomegaly. 2. Small sludge/debris within the gallbladder. No evidence of biliary obstruction. 3. Echogenic right kidney typical of chronic parenchymal disease. There is no hydronephrosis. Small, simple/benign cysts are noted. Jose Saucedo MD Abdomen/Pelvis CT 11/16/16 0000 Signed Impressions: Service Date/Time: October 23:55 - CONCLUSION: 1. Small liver with small ascites and diffuse body wall edema/anasarca. 2. No focal lesion or localized inflammatory changes are demonstrated. 3. Large bleb/bullae seen of both visualized lung bases. 4. Lumbar spine findings as above, including a right paracentral disc protrusion at L4/L5. Jose Saucedo MD Objective Remarks GENERAL:Emaciated frail appearing male laying in bed not in any acute distress SKIN: peripherally cool, dry. HEAD: Atraumatic. Normocephalic. EYES: Pupils equal and round, reactive. +icteric. ENT: No nasal bleeding or discharge. Mucous membranes dry with mucositis on tongue. Palpable ~1.5 cm nodule at left angle of mandible. NECK: Trachea midline. no JVD. CHEST: mass like deformity of distal Left clavicle. CARDIOVASCULAR: occasional irregular beat, 2/6 systolic murmur RSM. RESPIRATORY: Port right chest. CTAB, no w/r/rhonchi. GASTROINTESTINAL: Abdomen scaphoid, vague diffuse abdominal tenderness, no rebound. Bowel sounds sluggish MUSCULOSKELETAL: Extremities without clubbing, cyanosis, or edema. No obvious deformities. NEUROLOGICAL: Awake and conversant but confused at times. No obvious cranial nerve deficits. Moves all extremities without focal deficits A/P Assessment and Plan NEURO: Failure to thrive Acute metabolic encephalopathy/hepatic encephalopathy Cocaine abuse Marijuana abuse Alcohol abuse Hyperammonemia Has hepatic encephalopathy. Severe volume depletion currently so will hold off on lactulose for now. Rifaximin 550 mg by mouth twice a day. Follow-up ammonia level. CT brain - no acute abnormality UDS positive for cocaine, THC. Checked APAP and ASA which are negative. RESP: Tobacco abuse L lung bleb Nasal cannula wean as tolerated. Albuterol every 2 hours as needed. CV: Hyperlipidemia History of hypertension Elevated troponin, ? cocaine induced vs type II NSTEMI in setting of multiorgan dysfunction. Follow serial troponins and EKG. Echo with LVEF 20%, LV thrombus. Discussed with Dr. Santos from cardiology who was consulted and we are starting anticoagulation with heparin. H/o hyperlipidemia but not candidate for statin at this time due to elevated LFTs. GI: Dysphagia Severe chronic protein energy malnutrition Jaundice, Elevated LFTs Constipation Acute liver failure may be secondary to alcoholic hepatitis, chemotherapeutic/ drug toxicity, metastatic disease, infectious/sepsis. Likely underlying cirrhosis. Check Tylenol level and check coags. Obtain RUQ u/s and CT abd/pelvis. NPO currently except meds. Speech therapy to evaluate swallow, GI for possible esophageal dilation versus PEG (though patient states he would refuse PEG) Magic mouthwash for mucositis. FEN/RENAL: Acute kidney injury Acute rhabdomyolysis Hypermagnesemia Hyperphosphatemia Strict intake output, monitor I/O. Monitor creatinine and electrolytes. Check CPK, urine eos, FeNa, renal u/s. Clinically appears volume depleted. We'll fluid resuscitate and follow up BMP. d5 0.9 NaCl at 125 mL per hour ID: Follow up urine and blood culture.Followup urine and blood culture Given dose of vancomycin to cover for sepsis in setting of port. Has h/o pcn allergy, tolerated cefepime in ED so will continue empirically for sepsis/SBP tx /prophylaxis. HEME: Stage IV Squamous cell carcinoma head and neck Erythrocyte macrocytosis Consulted heme-oncology, patient known to Dr. Escalona ENDO: Acute hypoglycemia Monitor glucose q 4hours. D5NS @ 125 ml/hr. PROPH: SCDs for DVT prophylaxis. Will check coags. Initiate heparin subcutaneous for DVT prophylaxis if appropriate. Protonix 40 mg IV daily for stress ulcer prophylaxis. ACCESS: R chest port. PIV in place Patient with failure to thrive and poor adherence to therapy for stage IV squamous cell carcinoma of head and neck now with multiorgan dysfunction and poor prognosis. Adherence must be exceedingly challenging given his social circumstances and polysubstance dependence. He told me that he wants his brother , Sly Arcos, to make medical decisions on his behalf when he is unable to make decisions. He currently is able to provide some history but he does not appear fully capacitated for medical decision making as he is confused at times and had inconsistent responses to the same questions. Nonetheless, attempted to discuss code status and he states he is FULL CODE. Consulted palliative care medicine to help facilitate decisions regarding goals of care D/W Family at bedside. D/w Dr. Santos. Angel Merritt MD Nov 17, 2016 19:01
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
[2016-11-17] MEDS: CEFEPIME INJ 2,000 MG in SODIUM CHLORIDE 0.9% INJ 100 ML IV SCH (20:40)
[2016-11-17] MEDS: HYDROmorphone HCL PF 1 MG/ML VIAL IV PUSH PRN (20:41)
[2016-11-17] MEDS: LACTULOSE SYRUP 20 GM/30 ML CUP PO SCH (20:41)
[2016-11-17] MEDS: MULTIVITAMIN INJ 10 ML, FOLIC ACID INJ 1 MG in SODIUM CHLORID 0.9% 500 ML INJ 500 ML IV SCH (21:08)
[2016-11-17] MEDS: THIAMINE INJ 100 MG in SODIUM CHLORIDE 0.9% INJ 100 ML IV SCH (21:58)
[2016-11-17] MEDS ORDERED: HEPARIN SODIUM - IV 10,000 UNITS/10 ML VIAL IV PRN ×2 (23:30)
[2016-11-18] VITALS (12 sets, daily range): BP systolic 120–137; BP diastolic 84–94; PULSE 54–71; RESP 9–19; TEMP 97.2–98.2; O2SAT 92–98
[2016-11-18] MEDS: HYDROmorphone HCL PF 1 MG/ML VIAL IV PUSH PRN ×4 (03:12→20:26)
[2016-11-18 03:24] LABS: APTT (PATIENT) GREATER THAN 153.4 SEC (24.3-30.1)
[2016-11-18] MEDS: CHLORHEXIDINE GLUCONATE 2 % 1 PACK (2 CLOTHS) TOP SCH (04:00)
[2016-11-18 07:08] LABS: HEMATOCRIT 46.6 % (39.0-51.0); MEAN CELL VOLUME 104.5 FL (80.0-100.0); MEAN CORPUSCULAR HEMOGLOBIN 34.1 PG (27.0-34.0); MEAN CORPUSCULAR HGB CONC 32.6 % (32.0-36.0); PLATELET COUNT 43 TH/MM3 (150-450); RED BLOOD COUNT 4.46 MIL/MM3 (4.50-5.90); RED CELL DISTRIBUTION WIDTH 14.5 % (11.6-17.2); WHITE BLOOD COUNT 5.7 TH/MM3 (4.0-11.0)
[2016-11-18 07:16] LABS: ALKALINE PHOSPHATASE 999 U/L (45-117); ALT (GPT) 809 U/L (12-78); ANION GAP 9 MEQ/L (5-15); AST (GOT) 923 U/L (15-37); BICARBONATE 28.4 MEQ/L (21.0-32.0); BLOOD UREA NITROGEN 94 MG/DL (7-18); CHLORIDE 115 MEQ/L (98-107); GLOMERULAR FILTRATION RATE 58 ML/MIN (>89); MAGNESIUM 2.3 MG/DL (1.5-2.5); POTASSIUM 3.2 MEQ/L (3.5-5.1); SODIUM (NA) 152 MEQ/L (136-145); TOTAL BILIRUBIN ADULT 3.3 MG/DL (0.2-1.0)
[2016-11-18 07:43] LABS: APTT (PATIENT) GREATER THAN 153.4 SEC (24.3-30.1)
[2016-11-18 07:51] LABS: HEMO FLAGS AUTO DIFF
[2016-11-18] MEDS: NYSTAT/DIPHENHY/LIDO MOUTHWASH (Adult) 120ML SWISH-SWAL SCH ×5 (09:00→20:31)
[2016-11-18] MEDS: FOLIC ACID 1 MG TAB PO SCH (09:08)
[2016-11-18] MEDS: RIFAXIMIN 550 MG TAB PO SCH ×2 (09:08→20:30)
[2016-11-18] MEDS: LACTULOSE SYRUP 20 GM/30 ML CUP PO SCH ×2 (09:08→20:12)
[2016-11-18] MEDS: PANTOPRAZOLE SODIUM 40 MG VIAL IV SCH (09:08)
[2016-11-18] MEDS: DOCUSATE SODIUM 100 MG CAP PO SCH ×2 (09:09→20:11)
[2016-11-18] MEDS: SODIUM CHLORIDE 0.9% FLUSH 10 ML FLUSH SCH ×2 (09:09→20:30)
[2016-11-18] MEDS: THIAMINE INJ 100 MG in SODIUM CHLORIDE 0.9% INJ 100 ML IV SCH (09:09)
[2016-11-18] MEDS: MULTIVITAMIN TAB PO SCH (09:09)
[2016-11-18] MEDS ORDERED: POTASSIUM CHLORIDE 10 MEQ CONTROLLED RELEASE TAB PO ONE (09:30)
--- NOTE | 2016-11-18 10:38 | HHI.NPPN ---
Subjective Interval History he is more alert today. Answers a few questions. Poor appetite. Apparently did well on swallowing evaluation. Review of Systems General Constitutional: Fatigue, Weight Change Objective Data Data 11/17/16 11/18/16 19:00 07:00 Intake Total 1939 ml Output Total 800 ml 1650 ml Balance -800 ml 289 ml Intake Oral 360 ml IV Total 1579 ml Output Urine Total 800 ml 1650 ml # Bowel Movements 0 Vital Signs Date Time Temp Pulse Resp B/P Pulse Ox O2 Delivery O2 Flow Rate FiO2 11/18/16 06:00 57 11/18/16 04:00 55 11/18/16 04:00 98.2 55 9 130/87 94 11/18/16 02:00 62 11/18/16 00:00 97.9 65 11 120/91 98 11/18/16 00:00 65 11/17/16 22:00 63 11/17/16 20:00 68 11/17/16 20:00 97.9 68 9 144/89 98 11/17/16 18:00 62 11/17/16 16:00 98.8 63 16 139/85 95 11/17/16 16:00 71 11/17/16 14:00 58 11/17/16 12:00 97.9 58 18 122/87 95 11/17/16 12:00 58 -: 11/18/16 0546 11/18/16 0546 Physical Exam General Appearance: Malnourished Eyes Eye Exam: Pupils Equal Throat Throat Exam: Oral Mucosa [place] & Moist Neck Neck Exam: Neck Supple Pulmonary Resp Exam: Clear Bilaterally Cardiology CV Exam: Regular, Normal Sinus Rhythm Gastrointestinal/Abdomen GI Exam: Soft, Non-Tender, Bowel Sounds Present Musculoskeletal MS Exam: Joints Intact MS Remarks muscle wasting. Emaciated. Neurologic Neuro Exam: Moving All Extremities Assessment/Plan Problem List: (1) MINO (acute kidney injury) Plan: Renal function continues to improve. suspected dehydration, prerenal with decreased intravascular volume depletion; although he does admit to taking NSAIDs for pain daily Replace potassium. imaging negative for acute obstruction Non oliguric. Avoid nephrotoxic agents. (2) Failure to thrive in adult Plan: palliative has been consulted encourage nutrition, hydration continue IVF , refusing PEG tube for nutrition (3) Hypertension Plan: BP acceptable he is not on any antihypertensives at this time (4) Acute hepatitis Plan: GI following, work up in progress avoid hepatotoxic medications (5) Hypernatremia Plan: change IVF to D51/4NS. (6) Hypokalemia Plan: Replace. Po Booker MD Nov 18, 2016 10:38
[2016-11-18] MEDS ORDERED: POTASSIUM CHLORIDE 20 MEQ CONTROLLED RELEASE TAB PO ONE (10:45)
[2016-11-18] MEDS: POTASSIUM CHLOR 20 MEQ PREMIX 100 ML IV SCH ×2 (11:29→13:41)
[2016-11-18] MEDS: DEXTROSE 5%-NACL 0.225% INJ 1,000 ML IV SCH (11:29)
[2016-11-18 11:50] LABS: BANDS 2 % (0-6); BURR CELLS 1+ (NORMAL); NEUTROPHIL # MANUAL DIFF 5.2 TH/MM3 (1.8-7.7); POLYS (SEG NEUTROPHILS) 90 % (16-70); TARGET CELLS 1+ (NORMAL); TOXIC VACUOLATION PRESENT (NONE SEEN); WBC DIFF SAMPLE 100
[2016-11-18 11:51] LABS: ACANTHOCYTES 1+ (NORMAL); PLATELET ESTIMATE SMEAR LOW (NORMAL); PLATELET MORPHOLOGY NORMAL (NORMAL); SCAN/DIFF FINAL DIFF MANUAL
--- NOTE | 2016-11-18 13:51 | PD.ONC.PN ---
Subjective Subjective Remarks Patient evaluated. Consult Note Dictated. Advanced Head and Neck Cancer with hx of non-compliance, polysubstance abuse/ narcotic seeking behavior. Has multi-organ failure Would recommend palliative care from his Malignancy perspective. Not a candidate for any treatment due to poor PFS/multiple co-morbidities and above mentioned issues Has thrombocytopenia and coagulopathy--will r/o DIC, hemolysis etc. Cryo and Vitamin K as needed.. Will follow Objective Data Date Time Temp Pulse Resp B/P Pulse Ox O2 Delivery O2 Flow Rate FiO2 11/18/16 12:00 71 11/18/16 12:00 97.2 71 19 123/84 95 11/18/16 10:00 65 11/18/16 09:38 12 11/18/16 08:00 54 11/18/16 08:00 98.1 54 14 134/92 92 11/18/16 06:00 57 11/18/16 04:00 55 11/18/16 04:00 98.2 55 9 130/87 94 11/18/16 02:00 62 11/18/16 00:00 97.9 65 11 120/91 98 11/18/16 00:00 65 11/17/16 22:00 63 11/17/16 20:00 68 11/17/16 20:00 97.9 68 9 144/89 98 11/17/16 18:00 62 11/17/16 16:00 98.8 63 16 139/85 95 11/17/16 16:00 71 11/17/16 14:00 58 11/18/16 11/18/16 11/18/16 07:00 15:00 23:00 Intake Total 1128 ml Output Total 1000 ml Balance 128 ml Result Diagram: 11/18/16 0546 11/18/16 0546 Laboratory Results Laboratory Tests Test 11/17/16 11/18/16 11/18/16 11/18/16 17:45 02:27 05:46 06:15 White Blood Count 5.6 TH/MM3 5.7 TH/MM3 Red Blood Count 4.49 MIL/MM3 4.46 MIL/MM3 Hemoglobin 15.4 GM/DL 15.2 GM/DL Hematocrit 47.2 % 46.6 % Mean Corpuscular Volume 105.0 FL 104.5 FL Mean Corpuscular Hemoglobin 34.4 PG 34.1 PG Mean Corpuscular Hemoglobin 32.7 % 32.6 % Concent Red Cell Distribution Width 14.6 % 14.5 % Platelet Count 52 TH/MM3 43 TH/MM3 Mean Platelet Volume 9.9 FL 9.7 FL Prothrombin Time 19.4 SEC Prothromb Time International 1.7 RATIO Ratio Activated Partial 31.6 SEC GREATER THAN GREATER THAN Thromboplast Time 153.4 SEC 153.4 SEC Neutrophils (%) (Auto) % Lymphocytes (%) (Auto) % Monocytes (%) (Auto) % Eosinophils (%) (Auto) % Basophils (%) (Auto) % Neutrophils # (Auto) TH/MM3 Lymphocytes # (Auto) TH/MM3 Monocytes # (Auto) TH/MM3 Eosinophils # (Auto) TH/MM3 Basophils # (Auto) TH/MM3 CBC Comment AUTO DIFF Differential Total Cells 100 Counted Neutrophils % (Manual) 90 % Band Neutrophils % 2 % Lymphocytes % 4 % Monocytes % 4 % Neutrophils # (Manual) 5.2 TH/MM3 Differential Comment FINAL DIFF MANUAL Toxic Vacuolation PRESENT Platelet Estimate LOW Platelet Morphology Comment NORMAL Target Cells 1+ [place] Cells 1+ Acanthocytes 1+ Sodium Level 152 MEQ/L Potassium Level 3.2 MEQ/L Chloride Level 115 MEQ/L Carbon Dioxide Level 28.4 MEQ/L Anion Gap 9 MEQ/L Blood Urea Nitrogen 94 MG/DL Creatinine 1.51 MG/DL Estimat Glomerular Filtration 58 ML/MIN Rate Random Glucose 100 MG/DL Calcium Level 8.3 MG/DL Phosphorus Level 3.3 MG/DL Magnesium Level 2.3 MG/DL Total Bilirubin 3.3 MG/DL Aspartate Amino Transf 923 U/L (AST/SGOT) Alanine Aminotransferase 809 U/L (ALT/SGPT) Alkaline Phosphatase 999 U/L Total Protein 5.6 GM/DL Albumin 2.6 GM/DL Culture Results Microbiology Date/Time Procedure Status Source Growth 11/16/16 17:40 Urine Culture - Final Complete Urine Clean Catch 50-100,000 CFU/ML MIXED GRAM POSITIVE... 11/16/16 17:45 Aerobic Blood Culture - Preliminary Resulted Blood Peripheral NO GROWTH IN 2 DAYS 11/16/16 17:45 Anaerobic Blood Culture - Preliminary Resulted Blood Peripheral NO GROWTH IN 2 DAYS 11/16/16 17:46 Aerobic Blood Culture - Preliminary Resulted Blood Peripheral NO GROWTH IN 2 DAYS 11/16/16 17:46 Anaerobic Blood Culture - Preliminary Resulted Blood Peripheral NO GROWTH IN 2 DAYS Administered Medications Medications (Trade) Dose Ordered Sig/Karon Route PRN Reason Start Time Stop Time Status Last Admin Dose Admin Sodium Chloride (NS Flush) 2 ml UNSCH PRN IVF FLUSH AFTER USING IV ACCESS 11/16/16 17:15 11/16/16 21:59 Hydromorphone HCl (Dilaudid Pf Inj) 0.2 mg Q4H PRN IV PUSH PAIN 1-3 11/16/16 21:30 11/18/16 06:30 Hydromorphone HCl (Dilaudid Pf Inj) 0.5 mg Q4H PRN IV PUSH PAIN 4-8 11/16/16 21:30 11/18/16 03:12 Hydromorphone HCl (Dilaudid Pf Inj) 1 mg Q4H PRN IV PUSH PAIN 9-/11/16/16 21:30 11/18/16 09:08 Rifaximin (Xifaxan) 550 mg BID PO 11/16/16 22:00 11/18/16 09:08 Sodium Chloride (NS Flush) 2 ml BID .XX 11/17/16 09:00 11/18/16 09:09 Pantoprazole Sodium (Protonix Inj) 40 mg DAILY IV 11/17/16 09:00 11/18/16 09:08 Docusate Sodium (Colace) 100 mg BID PO 11/17/16 09:00 11/18/16 09:09 Chlorhexidine Gluconate 3 pack 3 pack Taper DAILY@04 TOP 11/17/16 04:00 11/13/17 03:59 11/17/16 04:00 Thiamine HCl/ Sodium Chloride (Thiamine Inj/NS Inj) 101 ml @ 101 mls/hr DAILY IV 11/17/16 21:00 11/18/16 09:09 Folic Acid (Folate) 1 mg DAILY PO 11/17/16 09:00 11/18/16 09:08 Multivitamins (Theragran) 1 tab DAILY PO 11/17/16 09:00 11/18/16 09:09 Multi-Ingredient Mouthwash/Gargle 5 ml 5 ml QID SWISH-SWAL 11/17/16 09:00 11/18/16 09:00 Cefepime HCl/ Sodium Chloride (Maxipime Inj/NS Inj) 100 ml @ 200 mls/hr Q24H IV 11/17/16 20:00 11/17/16 20:40 Lactulose 30 ml 30 ml BID PO 11/17/16 21:00 11/18/16 09:08 Heparin Sodium/ Dextrose 250 ml @ 0 mls/hr TITRATE IV 11/17/16 17:30 11/17/16 17:55 Multivitamins 10 ml/Folic Acid 1 mg/Sodium Chloride 510.2 ml @ 100 mls/hr Q24H IV 11/17/16 21:00 11/22/16 20:59 11/17/16 21:08 Dextrose/Sodium Chloride (D5W-1/4 NS Inj) 1,000 ml @ 42 mls/hr [id number] IV 11/18/16 10:00 11/18/16 11:29 Danish Escalona MD Nov 18, 2016 13:51
--- NOTE | 2016-11-18 14:19 | PD.CARD.PN ---
Subjective Subjective Remarks No CP or SOB, somnolent, mildly confused Objective Medications Current Medications Medications (Trade) Dose Ordered Sig/Karon Route Start Time Stop Time Status Last Admin (NS Flush) 2 ml UNSCH PRN IVF 11/16/16 17:15 11/16/16 21:59 (Dilaudid Pf Inj) 0.2 mg Q4H PRN IV PUSH 11/16/16 21:30 11/18/16 06:30 (Dilaudid Pf Inj) 0.5 mg Q4H PRN IV PUSH 11/16/16 21:30 11/18/16 03:12 (Dilaudid Pf Inj) 1 mg Q4H PRN IV PUSH 11/16/16 21:30 11/18/16 09:08 (Xifaxan) 550 mg BID PO 11/16/16 22:00 11/18/16 09:08 (NS Flush) 2 ml UNSCH PRN .XX 11/16/16 22:15 (NS Flush) 2 ml BID .XX 11/17/16 09:00 11/18/16 09:09 (Protonix Inj) 40 mg DAILY IV 11/17/16 09:00 11/18/16 09:08 (Zofran Inj) 4 mg Q6H PRN IV 11/16/16 22:15 (Colace) 100 mg BID PO 11/17/16 09:00 11/18/16 09:09 (Dulcolax Supp) 10 mg DAILY PRN RECTAL 11/16/16 22:15 Miscellaneous Information 1 [id number] XX 11/16/16 22:15 (Chlorhexidine 2% Cloth) 3 pack Taper DAILY@04 TOP 11/17/16 04:00 11/13/17 03:59 11/17/16 04:00 Chlorhexidine Gluconate 3 pack 3 pack UNSCH PRN TOP 11/16/16 22:15 (Thiamine Inj/NS Inj) 101 ml @ 101 mls/hr DAILY IV 11/17/16 21:00 11/18/16 09:09 (Folate) 1 mg DAILY PO 11/17/16 09:00 11/18/16 09:08 (Theragran) 1 tab DAILY PO 11/17/16 09:00 11/18/16 09:09 Multi-Ingredient Mouthwash/Gargle 5 ml 5 ml QID SWISH-SWAL 11/17/16 09:00 11/18/16 09:00 (Maxipime Inj/NS Inj) 100 ml @ 200 mls/hr Q24H IV 11/17/16 20:00 11/17/16 20:40 (Lactulose Liq) 30 ml BID PO 11/17/16 21:00 11/18/16 09:08 (Heparin Inj) 5,000 units UNSCH PRN IV 11/17/16 23:30 Heparin Sodium (Porcine) 2500 units 2,500 units UNSCH PRN IV 11/17/16 23:30 Heparin Sodium/ Dextrose 250 ml @ 0 mls/hr TITRATE IV 11/17/16 17:30 11/17/16 17:55 Multivitamins 10 ml/Folic Acid 1 mg/Sodium Chloride 510.2 ml @ 100 mls/hr Q24H IV 11/17/16 21:00 11/22/16 20:59 11/17/16 21:08 (D5W-1/4 NS Inj) 1,000 ml @ 42 mls/hr [id number] IV 11/18/16 10:00 11/18/16 11:29 Vital Signs / I&O Vital Signs Date Time Temp Pulse Resp B/P Pulse Ox O2 Delivery O2 Flow Rate FiO2 11/18/16 12:00 71 11/18/16 12:00 97.2 71 19 123/84 95 11/18/16 10:00 65 11/18/16 09:38 12 11/18/16 08:00 54 11/18/16 08:00 98.1 54 14 134/92 92 11/18/16 06:00 57 11/18/16 04:00 55 11/18/16 04:00 98.2 55 9 130/87 94 11/18/16 02:00 62 11/18/16 00:00 97.9 65 11 120/91 98 11/18/16 00:00 65 11/17/16 22:00 63 11/17/16 20:00 68 11/17/16 20:00 97.9 68 9 144/89 98 11/17/16 18:00 62 11/17/16 16:00 98.8 63 16 139/85 95 11/17/16 16:00 71 I/O 4/28/11/17/16 11/17/16 11/18/16 11/18/16 11/18/16 07:00 15:00 23:00 07:00 15:00 23:00 Intake Total 713 ml 811 ml 1128 ml Output Total 650 ml 800 ml 650 ml 1000 ml Balance 63 ml -800 ml 161 ml 128 ml Intake Oral 120 ml 240 ml IV Total 713 ml 691 ml 888 ml Output Urine Total 650 ml 800 ml 650 ml 1000 ml # Bowel Movements 0 0 0 Physical Exam GENERAL: In NAD, cachectic SKIN: Warm and dry. HEAD: Normocephalic. EYES: No scleral icterus. No injection or drainage. NECK: Supple, trachea midline. No JVD or lymphadenopathy. CARDIOVASCULAR: Regular rate and rhythm without murmurs, gallops, or rubs. RESPIRATORY: Breath sounds equal bilaterally. No accessory muscle use. GASTROINTESTINAL: Abdomen soft, non-tender, nondistended. MUSCULOSKELETAL: No cyanosis, or edema. Laboratory Laboratory Tests Test 11/17/16 11/18/16 11/18/16 11/18/16 17:45 02:27 05:46 06:15 White Blood Count 5.6 TH/MM3 5.7 TH/MM3 Red Blood Count 4.49 MIL/MM3 4.46 MIL/MM3 Hemoglobin 15.4 GM/DL 15.2 GM/DL Hematocrit 47.2 % 46.6 % Mean Corpuscular Volume 105.0 FL 104.5 FL Mean Corpuscular Hemoglobin 34.4 PG 34.1 PG Mean Corpuscular Hemoglobin 32.7 % 32.6 % Concent Red Cell Distribution Width 14.6 % 14.5 % Platelet Count 52 TH/MM3 43 TH/MM3 Mean Platelet Volume 9.9 FL 9.7 FL Prothrombin Time 19.4 SEC Prothromb Time International 1.7 RATIO Ratio Activated Partial 31.6 SEC GREATER THAN GREATER THAN Thromboplast Time 153.4 SEC 153.4 SEC Neutrophils (%) (Auto) % Lymphocytes (%) (Auto) % Monocytes (%) (Auto) % Eosinophils (%) (Auto) % Basophils (%) (Auto) % Neutrophils # (Auto) TH/MM3 Lymphocytes # (Auto) TH/MM3 Monocytes # (Auto) TH/MM3 Eosinophils # (Auto) TH/MM3 Basophils # (Auto) TH/MM3 CBC Comment AUTO DIFF Differential Total Cells 100 Counted Neutrophils % (Manual) 90 % Band Neutrophils % 2 % Lymphocytes % 4 % Monocytes % 4 % Neutrophils # (Manual) 5.2 TH/MM3 Differential Comment FINAL DIFF MANUAL Toxic Vacuolation PRESENT Platelet Estimate LOW Platelet Morphology Comment NORMAL Target Cells 1+ [place] Cells 1+ Acanthocytes 1+ Sodium Level 152 MEQ/L Potassium Level 3.2 MEQ/L Chloride Level 115 MEQ/L Carbon Dioxide Level 28.4 MEQ/L Anion Gap 9 MEQ/L Blood Urea Nitrogen 94 MG/DL Creatinine 1.51 MG/DL Estimat Glomerular Filtration 58 ML/MIN Rate Random Glucose 100 MG/DL Calcium Level 8.3 MG/DL Phosphorus Level 3.3 MG/DL Magnesium Level 2.3 MG/DL Total Bilirubin 3.3 MG/DL Aspartate Amino Transf 923 U/L (AST/SGOT) Alanine Aminotransferase 809 U/L (ALT/SGPT) Alkaline Phosphatase 999 U/L Total Protein 5.6 GM/DL Albumin 2.6 GM/DL Imaging Last Impressions Head CT 11/16/16 1727 Signed Impressions: Service Date/Time: October 19:06 - CONCLUSION: Slight atrophic and small vessel ischemic changes without any evidence for acute hemorrhage or mass effect. Davin Salinas MD Chest X-Ray 11/16/16 1716 Signed Impressions: Service Date/Time: October 17:26 - CONCLUSION: 1. No acute cardiopulmonary disease. 2. Stable large bleb in the left lung. Rizwan Tyson MD Liver Ultrasound 11/16/16 0000 Signed Impressions: Service Date/Time: October 22:10 - CONCLUSION: 1. Small and diffusely heterogeneous liver without a focal lesion. There is small ascites but no splenomegaly. 2. Small sludge/debris within the gallbladder. No evidence of biliary obstruction. 3. Echogenic right kidney typical of chronic parenchymal disease. There is no hydronephrosis. Small, simple/benign cysts are noted. Jose Saucedo MD Abdomen/Pelvis CT 11/16/16 0000 Signed Impressions: Service Date/Time: October 23:55 - CONCLUSION: 1. Small liver with small ascites and diffuse body wall edema/anasarca. 2. No focal lesion or localized inflammatory changes are demonstrated. 3. Large bleb/bullae seen of both visualized lung bases. 4. Lumbar spine findings as above, including a right paracentral disc protrusion at L4/L5. Jose Saucedo MD Assessment and Plan Problem List: (1) Thrombus in heart chamber (2) CHF (congestive heart failure) (3) Cardiomyopathy (4) Encephalopathy (5) Failure to thrive in adult (6) MINO (acute kidney injury) (7) Acute hepatitis (8) Severe dehydration (9) Hypertension (10) Hypokalemia (11) Hypernatremia (12) Malignancy Assessment and Plan Continue anticoagulation for LV thrombus. Continue tx for CHF, echo shows severe LV dysfunction. Has multiple medical problems and has been noncompliant with his care. Recommend palliative care evaluation. Continue ICU care. Sunitha Santos MD Nov 18, 2016 14:19
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
[2016-11-18 15:26] LABS: INTERNATIONAL NORMALIZED RATIO 1.4 RATIO; PROTHROMBIN TIME - PATIENT 16.1 SEC (9.8-11.6)
[2016-11-18 15:57] LABS: INDIRECT BILIRUBIN 1.2 MG/DL (0.0-0.8); TOTAL BILIRUBIN ADULT 5.5 MG/DL (0.2-1.0)
[2016-11-18 15:58] LABS: APTT (PATIENT) 30.6 SEC (24.3-30.1)
--- NOTE | 2016-11-18 19:32 | HHI.PR ---
Subjective Remarks Patient seems to be confused c/o pain in bilateral lower extremities denies cp/sob as per RN patient had 2 episodes of bloody BM's this am Objective Vitals Vital Signs Date Time Temp Pulse Resp B/P Pulse Ox O2 Delivery O2 Flow Rate FiO2 11/18/16 18:00 58 11/18/16 16:00 65 11/18/16 16:00 97.9 65 18 137/94 94 11/18/16 14:00 63 11/18/16 12:00 71 11/18/16 12:00 97.2 71 19 123/84 95 11/18/16 10:00 65 11/18/16 09:38 12 11/18/16 08:00 54 11/18/16 08:00 98.1 54 14 134/92 92 11/18/16 06:00 57 11/18/16 04:00 55 11/18/16 04:00 98.2 55 9 130/87 94 11/18/16 02:00 62 11/18/16 00:00 97.9 65 11 120/91 98 11/18/16 00:00 65 11/17/16 22:00 63 11/17/16 20:00 68 11/17/16 20:00 97.9 68 9 144/89 98 I/O 11/17/16 11/17/16 11/17/16 11/18/16 11/18/16 11/18/16 07:00 15:00 23:00 07:00 15:00 23:00 Intake Total 713 ml 811 ml 1128 ml 1117 ml Output Total 650 ml 800 ml 650 ml 1000 ml 800 ml Balance 63 ml -800 ml 161 ml 128 ml 317 ml Intake Oral 120 ml 240 ml 480 ml IV Total 713 ml 691 ml 888 ml 637 ml Output Urine Total 650 ml 800 ml 650 ml 1000 ml 800 ml # Bowel Movements 0 0 0 1 Result Diagram: 11/18/16 0546 11/18/16 0546 Imaging Last Impressions Lower Extremity Ultrasound 11/18/16 0000 Signed Impressions: Service Date/Time: Friday, November 18, 2016 20:58 - CONCLUSION: Normal examination. Davin Salinas MD Head CT 11/16/16 9037 Signed Impressions: Service Date/Time: October 19:06 - CONCLUSION: Slight atrophic and small vessel ischemic changes without any evidence for acute hemorrhage or mass effect. Davin Salinas MD Chest X-Ray 11/16/16 1716 Signed Impressions: Service Date/Time: October 17:26 - CONCLUSION: 1. No acute cardiopulmonary disease. 2. Stable large bleb in the left lung. Rizwan Tyson MD Liver Ultrasound 11/16/16 0000 Signed Impressions: Service Date/Time: October 22:10 - CONCLUSION: 1. Small and diffusely heterogeneous liver without a focal lesion. There is small ascites but no splenomegaly. 2. Small sludge/debris within the gallbladder. No evidence of biliary obstruction. 3. Echogenic right kidney typical of chronic parenchymal disease. There is no hydronephrosis. Small, simple/benign cysts are noted. Jose Saucedo MD Abdomen/Pelvis CT 11/16/16 0000 Signed Impressions: Service Date/Time: October 23:55 - CONCLUSION: 1. Small liver with small ascites and diffuse body wall edema/anasarca. 2. No focal lesion or localized inflammatory changes are demonstrated. 3. Large bleb/bullae seen of both visualized lung bases. 4. Lumbar spine findings as above, including a right paracentral disc protrusion at L4/L5. Jose Saucedo MD Objective Remarks GENERAL:Emaciated frail appearing male laying in bed not in any acute distress SKIN: peripherally cool, dry. HEAD: Atraumatic. Normocephalic. EYES: Pupils equal and round, reactive. +icteric. ENT: No nasal bleeding or discharge. Mucous membranes dry with mucositis on tongue. Palpable ~1.5 cm nodule at left angle of mandible. NECK: Trachea midline. no JVD. CHEST: mass like deformity of distal Left clavicle. CARDIOVASCULAR: occasional irregular beat, 2/6 systolic murmur RSM. RESPIRATORY: Port right chest. CTAB, no w/r/rhonchi. GASTROINTESTINAL: Abdomen scaphoid, vague diffuse abdominal tenderness, no rebound. Bowel sounds sluggish MUSCULOSKELETAL: Extremities without clubbing, cyanosis, or edema. No obvious deformities. NEUROLOGICAL: Awake and conversant but confused at times. No obvious cranial nerve deficits. Moves all extremities without focal deficits Urinary Catheter: No Vascular Central Line Catheter: Yes A/P Assessment and Plan Failure to thrive Acute metabolic encephalopathy/hepatic encephalopathy Cocaine abuse Marijuana abuse Alcohol abuse Hyperammonemia Has hepatic encephalopathy. Severe volume depletion currently so will hold off on lactulose for now. Rifaximin 550 mg by mouth twice a day. Follow-up ammonia level. CT brain - no acute abnormality UDS positive for cocaine, THC. Checked APAP and ASA which are negative. RESP: Tobacco abuse L lung bleb Nasal cannula wean as tolerated. Albuterol every 2 hours as needed. CV: Hyperlipidemia History of hypertension Elevated troponin, ? cocaine induced vs type II NSTEMI in setting of multiorgan dysfunction. Follow serial troponins and EKG. Echo with LVEF 20%, LV thrombus. Discussed with Dr. Santos - patient started on heparin H/o hyperlipidemia but not candidate for statin at this time due to elevated LFTs. 11/18 patient with elevated pt - ptt and low platelets - low fibrinogen - likely DIC. RN will contact hematology for recommendations - transfuse FFP GI: Dysphagia Severe chronic protein energy malnutrition Jaundice, Elevated LFTs Constipation Acute liver failure may be secondary to alcoholic hepatitis, chemotherapeutic/ drug toxicity, metastatic disease, infectious/sepsis. Likely underlying cirrhosis. Check Tylenol level and check coags. Obtain RUQ u/s and CT abd/pelvis. NPO currently except meds. Speech therapy to evaluate swallow, GI for possible esophageal dilation versus PEG (though patient states he would refuse PEG) Magic mouthwash for mucositis. 11/18 Gi consulted for GI bleed - case discussed w Dr edmpsey. Patient had 2 episodes of bright red blood per rectum this am. Possible EGD, colonoscopy on sunday. monitor cbc q 6 hrs - transfuse for hemoglobin less than 7 or less than 9 if active bleeding FEN/RENAL: Acute kidney injury Acute rhabdomyolysis Hypermagnesemia Hyperphosphatemia Hypernatremia Hypokalemia Strict intake output, monitor I/O. Monitor creatinine and electrolytes. Check CPK, urine eos, FeNa, renal u/s. Clinically appears volume depleted. We'll fluid resuscitate and follow up BMP. d5 0.9 NaCl at 125 mL per hour 11/18 Sodium elevated and trending up. Start 1/4 ns and monitor bmp every 6 hours. Potassium 3.2, replace with KCL IV and continue to monitor BMP. Creatinine stable. nephrology following. ID: Follow up urine and blood culture.Followup urine and blood culture Given dose of vancomycin to cover for sepsis in setting of port. Has h/o pcn allergy, tolerated cefepime in ED so will continue empirically for sepsis/SBP tx /prophylaxis. 11/18 Blood cultures negative x1, urine culture cw contamination. Continue IV Cefepime. 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 Patient with elevated PT, PTT and INR on admission. Fibrinogen low. Possible DIC. RN to contact hematology for instructions on possible transfusion of fresh frozen plasma. Continue IV heparin. Continue to monitor PT, PTT, INR. ENDO: Acute hypoglycemia Monitor glucose q 4hours. continue D5 07/26 ns 11/18 Check Bilat lower extremity Doppler since patient c/o bilateral calf pain. PROPH: SCDs for DVT prophylaxis. Continue heparin. Protonix 40 mg IV daily for stress ulcer prophylaxis. ACCESS: R chest port. PIV in place Patient with failure to thrive and poor adherence to therapy for stage IV squamous cell carcinoma of head and neck now with multiorgan dysfunction and poor prognosis. Adherence must be exceedingly challenging given his social circumstances and polysubstance dependence. He told Dr Merritt wants his brother , Sly Arcos, to make medical decisions on his behalf when he is unable to make decisions. He currently is able to provide some history but he does not appear fully capacitated for medical decision making as he is confused at times and had inconsistent responses to the same questions. Nonetheless, attempted to discuss code status and he states he is FULL CODE. Consulted palliative care medicine to help facilitate decisions regarding goals of care Discharge Planning Continue to monitor in the medical floor. Sandro Walter MD Nov 18, 2016 19:32
[2016-11-18] MEDS ORDERED: POTASSIUM CHLORIDE INJ 20 MEQ, SODIUM CHLORIDE 23.4% INJ 38.5 MEQ in WATER STERILE FOR ... IV SCH (20:00)
[2016-11-18] MEDS: CARVEDILOL 3.125 MG TAB PO SCH (20:30)
[2016-11-18] MEDS: CEFEPIME INJ 2,000 MG in SODIUM CHLORIDE 0.9% INJ 100 ML IV SCH (20:30)
[2016-11-18 21:07] LABS: HEMATOCRIT 45.3 % (39.0-51.0); MEAN CELL VOLUME 103.3 FL (80.0-100.0); MEAN CORPUSCULAR HEMOGLOBIN 35.1 PG (27.0-34.0); PLATELET COUNT 40 TH/MM3 (150-450); RED BLOOD COUNT 4.38 MIL/MM3 (4.50-5.90); RED CELL DISTRIBUTION WIDTH 14.2 % (11.6-17.2); WHITE BLOOD COUNT 6.1 TH/MM3 (4.0-11.0)
[2016-11-18 21:09] LABS: REVIEW FLAG FINAL
--- NOTE | 2016-11-18 22:08 | RADRPT ---
EXAM DATE/TIME: 11/18/2016 20:58 [facility] COMPARISON: No previous studies available for comparison. INDICATIONS : Bilateral leg pain. MEDICAL HISTORY : Hypercholesterolemia. Hypertension. Odynophagia. Substance use. Cancer. SURGICAL HISTORY : Plates in bilateral jaw. ENCOUNTER: Initial ACUITY: 1 day PAIN SCORE: 8/10 LOCATION: Bilateral leg. TECHNIQUE: Venous ultrasound of the left and right leg was performed from the inguinal ligament to the proximal calf. Real-time, color Doppler and spectral tracing, compression and augmentation techniques were us ed. FINDINGS: RIGHT LEG: There is normal compressibility of the deep venous system from the inguinal region to the proximal ca lf. No echogenic clot is seen in the lumen of the common femoral, femoral, popliteal, and posterior tibial veins. There is a normal response of the venous system to proximal and distal augmentation an d respiration. LEFT LEG: There is normal compressibility of the deep venous system from the inguinal region to the proximal ca lf. No echogenic clot is seen in the lumen of the common femoral, femoral, popliteal, and posterior tibial veins. There is a normal response of the venous system to proximal and distal augmentation an d respiration. CONCLUSION: Normal examination. Davin Salinas MD on November 18, 2016 at 22:06 Board Certified Radiologist. This report was verified electronically.
[2016-11-18] MEDS: MULTIVITAMIN INJ 10 ML, FOLIC ACID INJ 1 MG in SODIUM CHLORID 0.9% 500 ML INJ 500 ML IV SCH (22:48)
[2016-11-18 22:51] LABS: BICARBONATE 25.7 MEQ/L (21.0-32.0)
--- NOTE | 2016-11-18 23:43 | HHI.GIFU ---
Subjective Remarks Comfortable in bed eating sherbet no complaints Report by nurse small amount of rectal bleeding Objective Vitals I&O Vital Signs Date Time Temp Pulse Resp B/P Pulse Ox O2 Delivery O2 Flow Rate FiO2 11/18/16 18:00 58 11/18/16 16:00 65 11/18/16 16:00 97.9 65 18 137/94 94 11/18/16 14:00 63 11/18/16 12:00 71 11/18/16 12:00 97.2 71 19 123/84 95 11/18/16 10:00 65 11/18/16 09:38 12 11/18/16 08:00 54 11/18/16 08:00 98.1 54 14 134/92 92 11/18/16 06:00 57 11/18/16 04:00 55 11/18/16 04:00 98.2 55 9 130/87 94 11/18/16 02:00 62 11/18/16 00:00 97.9 65 11 120/91 98 11/18/16 00:00 65 I/O 11/17/16 11/17/16 11/17/16 11/18/16 11/18/16 11/18/16 07:00 15:00 23:00 07:00 15:00 23:00 Intake Total 713 ml 811 ml 1128 ml 1117 ml Output Total 650 ml 800 ml 650 ml 1000 ml 800 ml Balance 63 ml -800 ml 161 ml 128 ml 317 ml Intake Oral 120 ml 240 ml 480 ml IV Total 713 ml 691 ml 888 ml 637 ml Output Urine Total 650 ml 800 ml 650 ml 1000 ml 800 ml # Bowel Movements 0 0 0 1 Laboratory Laboratory Tests Test 11/18/16 11/18/16 11/18/16 11/18/16 02:27 05:46 06:15 14:30 Activated Partial GREATER THAN GREATER THAN 30.6 Thromboplast Time 153.4 153.4 White Blood Count 5.7 Red Blood Count 4.46 Hemoglobin 15.2 Hematocrit 46.6 Mean Corpuscular Volume 104.5 Mean Corpuscular Hemoglobin 34.1 Mean Corpuscular Hemoglobin 32.6 Concent Red Cell Distribution Width 14.5 Platelet Count 43 Mean Platelet Volume 9.7 Neutrophils (%) (Auto) Lymphocytes (%) (Auto) Monocytes (%) (Auto) Eosinophils (%) (Auto) Basophils (%) (Auto) Neutrophils # (Auto) Lymphocytes # (Auto) Monocytes # (Auto) Eosinophils # (Auto) Basophils # (Auto) CBC Comment AUTO DIFF Differential Total Cells 100 Counted Neutrophils % (Manual) 90 Band Neutrophils % 2 Lymphocytes % 4 Monocytes % 4 Neutrophils # (Manual) 5.2 Differential Comment FINAL DIFF MANUAL Toxic Vacuolation PRESENT Platelet Estimate LOW Platelet Morphology Comment NORMAL Target Cells 1+ Bee Cells 1+ Acanthocytes 1+ Sodium Level 152 155 Potassium Level 3.2 4.0 Chloride Level 115 119 Carbon Dioxide Level 28.4 25.7 Anion Gap 9 10 Blood Urea Nitrogen 94 95 Creatinine 1.51 1.53 Estimat Glomerular Filtration 58 57 Rate Random Glucose 100 88 Calcium Level 8.3 8.4 Phosphorus Level 3.3 Magnesium Level 2.3 Total Bilirubin 3.3 5.5 Aspartate Amino Transf 923 (AST/SGOT) Alanine Aminotransferase 809 (ALT/SGPT) Alkaline Phosphatase 999 Total Protein 5.6 Albumin 2.6 Prothrombin Time 16.1 Prothromb Time International 1.4 Ratio Fibrinogen 114 Direct Bilirubin 4.3 Indirect Bilirubin 1.2 Blood Type A POSITIVE Direct Antiglobulin Test NEGATIVE ([facility]) Test 11/18/16 20:45 White Blood Count 6.1 Red Blood Count 4.38 Hemoglobin 15.4 Hematocrit 45.3 Mean Corpuscular Volume 103.3 Mean Corpuscular Hemoglobin 35.1 Mean Corpuscular Hemoglobin 34.0 Concent Red Cell Distribution Width 14.2 Platelet Count 40 Mean Platelet Volume 9.4 Activated Partial 30.0 Thromboplast Time Date/Time Procedure Status Source Growth 11/16/16 17:46 Aerobic Blood Culture - Preliminary Resulted Blood Peripheral NO GROWTH IN 2 DAYS 11/16/16 17:46 Anaerobic Blood Culture - Preliminary Resulted Blood Peripheral NO GROWTH IN 2 DAYS 11/16/16 17:40 Urine Culture - Final Complete Urine Clean Catch 50-100,000 CFU/ML MIXED GRAM POSITIVE... Imaging Last 48 hours Impressions Lower Extremity Ultrasound 11/18/16 0000 Signed Impressions: Service Date/Time: Friday, November 18, 2016 20:58 - CONCLUSION: Normal examination. Davin Salinas MD Physical Exam HEENT: normocephalic; Throat is clear. NECK: Neck is supple. CHEST: Chest is clear to auscultation and percussion. CARDIAC: Regular rate and rhythm with no murmur gallop or rubs. ABDOMEN: Soft, nondistended, nontender; no hepatosplenomegaly; bowel sounds are present in all four quadrants. EXTREMITIES: No clubbing, cyanosis, or edema. SKIN: Normal; no rash; no jaundice. LENS ENGRAVER: No focal deficits; alert and oriented times three. Assessment and Plan Plan ASSESSMENT: - Elevated LFTs. Significantly elevated LFTs on admission with T. Bili 5.1, AST 2362, ALT 1198, Alk Phosph 1123. Liver Ultrasound (11/16/16)----> 1. Small and diffusely heterogeneous liver without a focal lesion. There is small ascites but no splenomegaly. 2. Small sludge/debris within the gallbladder. No evidence of biliary obstruction. 3. Echogenic right kidney typical of chronic parenchymal disease. There is no hydronephrosis. Small, simple/benign cysts are noted. Abdomen/Pelvis CT ()----> 1. Small liver with small ascites and diffuse body wall edema/anasarca. 2. No focal lesion or localized inflammatory changes are demonstrated. 3. Large bleb/bullae seen of both visualized lung bases. 4. Lumbar spine findings as above, including a right paracentral disc protrusion at L4/L5. Today, T. Bili 6.3, AST 2130, ALT 1271, Alk Phosph 1297. He denies liver disease, but is a poor historian. Hepatitis panel pending. No documented hypotensive episodes. He does have very mild Rhabdo and elevated Troponin. He also was positive for Cocaine and MJ. He drinks ETOH, but is unable to quantify. He also has a bleb in left lung. It is unclear at this time if his liver enzyme derangement is related to drug use- PSA vs. possible chemotherapy, shocked liver, infection, or viral- or if he has any underlying liver disease. Will order liver workup and closely monitor. - Dysphagia, Odynophagia. PPI, Magic mouthwash. - Protein calorie malnutrition. PEG tube has been recommended and he has refused and reports that he still does not want a feeding tube. - Elevated Troponin. Pt was also positive for cocaine so it is unclear if this is related to coronary spasm or true NSTEMI. - MINO with electrolyte abnormalities, Creat 2.26. - AMS, had hypoglycemia when EMS arrived. Lethargic, poor historian. Has elevated ammonia. Xifaxan, lactulose. - Constipation. Lactulose, colace. - Coagulopathy, PT 23.9, INR 2.1, APTT 36.4. - Left lobe bleb. 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 Followed by Dr. Escalona, last note in EMR was from September 15, 2016, at which the plan was to start on concurrent chemotherapy and radiation. The patient is a very poor historian. He reports that he last had chemotherapy "a few weeks ago" and radiation "a few days ago," but he cannot provide an approximate date. According to the EMR, he is homeless and has been noncompliant. PLAN: - Full liquids - PPI - Xifaxan - Lactulose - Magic Mouthwash - Await hepatitis panel - AFP - HARLEEN, AMA, ASMA - Ferritin, Iron Saturation - Ceruloplasmin, Alpha 1 Antitrypsin - Monitor LFTs, Coag's - Abx per CCM - Avoid hepatotoxic meds - Pt would consider EGD and colonoscopy and we will ask again tomorrow to see if he would be willing to go for a PEG tube -Continue with current supportive care Jorge Mayers MD Nov 18, 2016 23:43
[2016-11-19] VITALS (12 sets, daily range): BP systolic 71–147; BP diastolic 54–109; PULSE 52–83; RESP 9–23; TEMP 96.8–98.2; O2SAT 91–99
[2016-11-19] MEDS: HYDROmorphone HCL PF 1 MG/ML VIAL IV PUSH PRN ×4 (00:30→20:10)
[2016-11-19 02:04] LABS: HEMATOCRIT 41.5 % (39.0-51.0); MEAN CORPUSCULAR HEMOGLOBIN 35.1 PG (27.0-34.0); MEAN CORPUSCULAR HGB CONC 33.8 % (32.0-36.0); PLATELET COUNT 37 TH/MM3 (150-450); RED BLOOD COUNT 3.99 MIL/MM3 (4.50-5.90); RED CELL DISTRIBUTION WIDTH 14.7 % (11.6-17.2)
[2016-11-19 02:07] LABS: REVIEW FLAG FINAL
[2016-11-19 02:28] LABS: MAGNESIUM 2.1 MG/DL (1.5-2.5)
[2016-11-19 03:05] LABS: APTT (PATIENT) GREATER THAN 153.4 SEC (24.3-30.1)
[2016-11-19] MEDS ORDERED: ICU - SODIUM PHOSPHATE 30 MMOL/NS 250 ML IV PRN ×2 (03:45)
[2016-11-19] MEDS ORDERED: ICU - CALL ORDERING PHYSICIAN PRN (03:45)
[2016-11-19] MEDS ORDERED: ICU - MAGNESIUM OXIDE 400 MG TAB PO PRN (03:45)
[2016-11-19] MEDS ORDERED: POTASSIUM CHLORIDE 25 MEQ EFFERVESCENT TAB PO PRN (03:45)
[2016-11-19] MEDS ORDERED: ICU - D/C ICU ELECTROLYTE ORDERS PRN (03:45)
[2016-11-19] MEDS ORDERED: ICU - MAGNESIUM SULFATE 2 GM/NS 100 ML IV PRN ×2 (03:45)
[2016-11-19] MEDS ORDERED: ICU - MAGNESIUM SULFATE 4 GM/NS 100 ML IV PRN ×2 (03:45)
[2016-11-19] MEDS ORDERED: ICU - POTASSIUM CHLORIDE/AQUEOUS SOLN 20 MEQ/100 ML IVPB IV PRN (03:45)
[2016-11-19] MEDS ORDERED: ICU - POTASSIUM PHOSPHATE MONOBASIC 500 MG TAB PO PRN (03:45)
[2016-11-19] MEDS ORDERED: ICU - POTASSIUM CHLORIDE/AQUEOUS SOLN 40 MEQ/100 ML IVPB IV PRN (03:45)
[2016-11-19] MEDS: CHLORHEXIDINE GLUCONATE 2 % 1 PACK (2 CLOTHS) TOP SCH (04:00)
[2016-11-19] MEDS: DEXTROSE 5%-NACL 0.225% INJ 1,000 ML IV SCH (06:24)
[2016-11-19 06:33] LABS: HEMATOCRIT 43.5 % (39.0-51.0)
[2016-11-19 06:36] LABS: APTT (PATIENT) GREATER THAN 153.4 SEC (24.3-30.1)
[2016-11-19] MEDS ORDERED: D5-1/4 NS + KCL 20 MEQ INJ 1,000 ML IV SCH (07:00)
[2016-11-19] MEDS ORDERED: FUROSEMIDE 20 MG/2 ML VIAL IV ONE (07:15)
[2016-11-19] MEDS ORDERED: ACETAMINOPHEN 325 MG TAB PO PRN (07:15)
[2016-11-19] MEDS ORDERED: diphenhydrAMINE HCL 25 MG CAP PO PRN (07:15)
[2016-11-19] MEDS ORDERED: SODIUM CHLOR 0.9% 250 ML INJ 250 ML IV ONE ×3 (07:15→16:45)
[2016-11-19] MEDS ORDERED: DEXTROSE 5%-NACL 0.225% INJ 1,000 ML IV SCH (07:30)
[2016-11-19 07:38] LABS: TOTAL BILIRUBIN ADULT 3.5 MG/DL (0.2-1.0)
--- NOTE | 2016-11-19 08:14 | HHI.PR ---
Subjective Remarks As per RN report patient has been bleeding through rectum Also had an episode of hemoptysis last night patient still confused afebrile hemoglobin stable Objective Vitals Vital Signs Date Time Temp Pulse Resp B/P Pulse Ox O2 Delivery O2 Flow Rate FiO2 11/19/16 06:00 59 11/19/16 04:00 59 11/19/16 04:00 97.0 60 9 147/109 91 11/19/16 02:00 52 11/19/16 00:00 96.8 52 23 138/96 95 11/19/16 00:00 52 11/18/16 22:00 57 11/18/16 20:00 97.4 59 18 131/89 95 11/18/16 20:00 59 11/18/16 18:00 58 11/18/16 16:00 65 11/18/16 16:00 97.9 65 18 137/94 94 11/18/16 14:00 63 11/18/16 12:00 71 11/18/16 12:00 97.2 71 19 123/84 95 11/18/16 10:00 65 11/18/16 09:38 12 I/O 11/18/16 11/18/16 11/18/16 11/19/16 11/19/16 11/19/16 07:00 15:00 23:00 07:00 15:00 23:00 Intake Total 1128 ml 1117 ml 675 ml 1340 ml Output Total 1000 ml 800 ml 450 ml 500 ml Balance 128 ml 317 ml 225 ml 840 ml Intake Oral 240 ml 480 ml 240 ml 120 ml IV Total 888 ml 637 ml 435 ml 1220 ml Output Urine Total 1000 ml 800 ml 450 ml 500 ml # Bowel Movements 0 1 1 2 Result Diagram: 11/19/16 0535 11/19/16 0154 Imaging Last Impressions Lower Extremity Ultrasound 11/18/16 0000 Signed Impressions: Service Date/Time: Friday, November 18, 2016 20:58 - CONCLUSION: Normal examination. Davin Salinas MD Head CT 11/16/161726 Signed Impressions: Service Date/Time: October 19:06 - CONCLUSION: Slight atrophic and small vessel ischemic changes without any evidence for acute hemorrhage or mass effect. Davin Salinas MD Chest X-Ray 4/27/17 1716 Signed Impressions: Service Date/Time: October 17:26 - CONCLUSION: 1. No acute cardiopulmonary disease. 2. Stable large bleb in the left lung. Rizwan Tyson MD Liver Ultrasound 11/16/16 0000 Signed Impressions: Service Date/Time: October 22:10 - CONCLUSION: 1. Small and diffusely heterogeneous liver without a focal lesion. There is small ascites but no splenomegaly. 2. Small sludge/debris within the gallbladder. No evidence of biliary obstruction. 3. Echogenic right kidney typical of chronic parenchymal disease. There is no hydronephrosis. Small, simple/benign cysts are noted. Jose Saucedo MD Abdomen/Pelvis CT 11/16/16 0000 Signed Impressions: Service Date/Time: October 23:55 - CONCLUSION: 1. Small liver with small ascites and diffuse body wall edema/anasarca. 2. No focal lesion or localized inflammatory changes are demonstrated. 3. Large bleb/bullae seen of both visualized lung bases. 4. Lumbar spine findings as above, including a right paracentral disc protrusion at L4/L5. Jose Saucedo MD Objective Remarks GENERAL:Emaciated frail appearing male laying in bed not in any acute distress SKIN: peripherally cool, dry. HEAD: Atraumatic. Normocephalic. EYES: Pupils equal and round, reactive. +icteric. ENT: No nasal bleeding or discharge. Mucous membranes dry with mucositis on tongue. Palpable ~1.5 cm nodule at left angle of mandible. NECK: Trachea midline. no JVD. CHEST: mass like deformity of distal Left clavicle. CARDIOVASCULAR: occasional irregular beat, 2/6 systolic murmur RSM. RESPIRATORY: Port right chest. CTAB, no w/r/rhonchi. GASTROINTESTINAL: Abdomen scaphoid, vague diffuse abdominal tenderness, no rebound. Bowel sounds sluggish. there is red blood in the bed. MUSCULOSKELETAL: Extremities without clubbing, cyanosis, or edema. No obvious deformities. NEUROLOGICAL: Awake and conversant but confused at times. No obvious cranial nerve deficits. Moves all extremities without focal deficits Medications and IVs Current Medications Medications (Trade) Dose Ordered Sig/Karon Route Start Time Stop Time Status Last Admin (NS Flush) 2 ml UNSCH PRN IVF 11/16/16 17:15 11/16/16 21:59 (Dilaudid Pf Inj) 0.2 mg Q4H PRN IV PUSH 11/16/16 21:30 11/18/16 06:30 (Dilaudid Pf Inj) 0.5 mg Q4H PRN IV PUSH 11/16/16 21:30 11/19/16 05:11 (Dilaudid Pf Inj) 1 mg Q4H PRN IV PUSH 11/16/16 21:30 11/18/16 09:08 (Xifaxan) 550 mg BID PO 11/16/16 22:00 11/18/16 20:30 (NS Flush) 2 ml UNSCH PRN .XX 11/16/16 22:15 (NS Flush) 2 ml BID .XX 11/17/16 09:00 11/18/16 20:30 (Zofran Inj) 4 mg Q6H PRN IV 11/16/16 22:15 (Colace) 100 mg BID PO 11/17/16 09:00 11/18/16 09:09 (Dulcolax Supp) 10 mg DAILY PRN RECTAL 11/16/16 22:15 Miscellaneous Information 1 Q361D XX 11/16/16 22:15 (Chlorhexidine 2% Cloth) 3 pack Taper DAILY@04 TOP 11/17/16 04:00 11/13/17 03:59 11/19/16 04:00 Chlorhexidine Gluconate 3 pack 3 pack UNSCH PRN TOP 11/16/16 22:15 (Thiamine Inj/NS Inj) 101 ml @ 101 mls/hr DAILY IV 11/17/16 21:00 11/18/16 09:09 (Folate) 1 mg DAILY PO 11/17/16 09:00 11/18/16 09:08 (Theragran) 1 tab DAILY PO 11/17/16 09:00 11/18/16 09:09 Multi-Ingredient Mouthwash/Gargle 5 ml 5 ml QID SWISH-SWAL 11/17/16 09:00 11/18/16 20:31 (Maxipime Inj/NS Inj) 100 ml @ 200 mls/hr Q24H IV 11/17/16 20:00 11/18/16 20:30 (Lactulose Liq) 30 ml BID PO 11/17/16 21:00 11/18/16 09:08 (Heparin Inj) 5,000 units UNSCH PRN IV 11/17/16 23:30 Hold Heparin Sodium (Porcine) 2500 units 2,500 units UNSCH PRN IV 11/17/16 23:30 Hold Heparin Sodium/ Dextrose 250 ml @ 0 mls/hr TITRATE IV 11/17/16 17:30 Hold 11/17/16 17:55 (Mvi-12 Inj/ Folvite Inj/NS 500 ml Inj) 510.2 ml @ 100 mls/hr Q24H IV 11/17/16 21:00 11/22/16 20:59 11/18/16 22:48 (Coreg) 3.125 mg Q12HR PO 11/18/16 21:00 11/18/16 20:30 (Protonix) 40 mg DAILY PO 11/19/16 09:00 Miscellaneous Information D/C ICU ELECTROLYTE ORDERS... UNSCH PRN .XX 11/19/16 03:45 Miscellaneous Information ICU - CALL ORDERING PHYSIC... UNSCH PRN .XX 11/19/16 03:45 (KCl 40 Meq Premix Inj) 100 ml @ 25 mls/hr UNSCH PRN IV 11/19/16 03:45 Potassium Bicarb/ Potassium Chloride 50 meq 50 meq UNSCH PRN PO 11/19/16 03:45 Potassium Chloride 100 ml @ 50 mls/hr UNSCH PRN IV 11/19/16 03:45 Magnesium Sulfate 4 gm/Sodium Chloride 108 ml @ 54 mls/hr UNSCH PRN IV 11/19/16 03:45 (Magnesium Sulfate Inj/NS Inj) 104 ml @ 52 mls/hr UNSCH PRN IV 11/19/16 03:45 Magnesium Oxide 800 mg 800 mg UNSCH PRN PO 11/19/16 03:45 (Sodium Phosphate Inj/NS 250 ml Inj) 260 ml @ 43.333 mls/ hr UNSCH PRN IV 11/19/16 03:45 Potassium Phosphate 2000 mg 2,000 mg UNSCH PRN PO 11/19/16 03:45 (NS 250 ml Inj) 250 ml @ 15 mls/hr ONCE ONCE IV 11/19/16 07:15 11/19/16 23:54 (Tylenol) 650 mg Q4H PRN PO 11/19/16 07:15 11/19/16 11:16 Diphenhydramine HCl 25 mg 25 mg Q4H PRN PO 11/19/16 07:15 11/19/16 11:16 Sodium Chloride 250 ml @ 15 mls/hr ONCE ONCE IV 11/19/16 07:15 11/19/16 23:54 (D5W-1/4 NS Inj) 1,000 ml @ 42 mls/hr [id number] IV 11/19/16 07:30 Urinary Catheter: No Vascular Central Line Catheter: Yes A/P Problem List: (1) Head and neck cancer ICD Code: C76.0 Status: Acute Plan: 61-year-old male with 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 The patient underwent chemotherapy and radiation therapy in 2015 and had residual disease. Medical oncology following, follow-up recommendations. (2) Intracardiac thrombus ICD Code: I51.3 Status: Acute Plan: Echo cardiac exam showed a ventricular ejection fraction of 20% and LV thrombus. Case discussed with Dr. salas by frame tender and patient started on heparin IV. Hold heparin IV drip given active GI bleed. (3) GI bleed ICD Code: K92.2 Status: Acute Plan: Patient currently with active GI bleed. GI consulted. Possible EGD/ colonoscopy on Sunday. This was discussed with Dr. Mayers on 11/18/16. Hold heparin given active GI bleed. Monitor CBC every 6 hours. Transfuse for hemoglobin less than 7 if no active bleeding, less than 9 if active bleeding to a hemoglobin goal of more than 9. We'll place the patient nothing by mouth for now. (4) Encephalopathy acute ICD Code: G93.40 Status: Acute Plan: Encephalopathy likely factorial from metabolic and hepatic source since ammonia elevated upon admission Patient started on rifaximin 550 mg by mouth twice a day. Continue to follow ammonia level CT of the head did not show any acute abnormality. Patient also was positive for cocaine, THC. (5) Coagulopathy ICD Code: D68.9 Status: Acute Plan: Coagulopathy likely secondary to DIC. PT and PTT elevated on presentation. Fibrinogen low at 114. Given active bleeding, I will transfuse 1 unit of cryoprecipitate to try to keep fibrinogen above 150. (6) Thrombocytopenia ICD Code: D69.6 Status: Acute Plan: Platelets trending down. Likely secondary to alcohol abuse and liver disease, DIC. Due to active bleeding I will transfuse 2 units of platelets. Call if platelets more than 100,000. Follow-up hematology recommendations. (7) Acute liver failure ICD Code: K72.00 Status: Acute Plan: LFTs elevated on presentation initially trending down, however today every third thousand 17 AST and ALT are slightly elevated compared to previous day. Continue to monitor liver function tests. GI consulted, follow-up recommendations. (8) Acute hepatitis ICD Code: B17.9 Status: Acute Plan: Hepatitis profile negative. Acute hepatitis most likely secondary to alcohol, chemotherapeutic postobstructive toxicity, metastatic disease, infectious source of sepsis. Possibly underlying cirrhosis. (9) MINO (acute kidney injury) ICD Code: N17.9 Status: Acute Plan: Most likely prerenal azotemia. CT of the abdomen do not show any hydronephrosis. Nephrology consulted. Creatinine on admission 2.5, now trending down to 1.27. Continue IV fluids as per nephrology recommendations. Currently on D5 1/4 normal saline. Continue to monitor BUN/creatinine, strict I's and O's (10) Hyperammonemia ICD Code: E72.20 Status: Acute Plan: Ammonia on admission elevated at 108 - 57. Continue rifaximin and hold lactulose given active GI bleed.. Continue to monitor ammonia levels. (11) Hypoglycemia ICD Code: E16.2 Status: Acute Plan: Patient had episode of hypoglycemia admission. Likely secondary to depleted liver stores and felt gluconate [place]. Continue D5. Continue to monitor Accu-Cheks. (12) Hypernatremia ICD Code: E87.0 Status: Acute Plan: Likely due to dehydration secondary to poor oral intake. Sodium improving on 1/4 NS. Continue. Continue to monitor BMP every 6 hours. Sodium should not be corrected by more than 10 points in the first 24 hours. (13) Hypophosphatemia ICD Code: E83.39 Status: Acute Plan: Likely secondary to nutritional deficiency. Replace as per ICU electrolyte protocol. Continue to monitor. (14) Drug abuse and dependence ICD Code: F19.20 Status: Chronic Plan: Patient positive for urine cocaine, urine cannabinoids on admission. (15) Hypoglycemia ICD Code: E16.2 Status: Resolved Plan: Continue D5 1/4 NS. (16) ETOH abuse ICD Code: F10.10 Status: Chronic Plan: No evidence of alcohol withdrawal. Continue thiamine and folic acid. (17) Hypertension ICD Code: I10 Status: Chronic Plan: Blood pressure seems stable. Continue Coreg. (18) Failure to thrive in adult ICD Code: R62.7 Status: Acute Plan: Causal dietitian once patient able to eat. Failure to thrive likely secondary to stage IV squamous carcinoma of the head and neck. (19) Bilateral lower extremity pain ICD Code: M79.604 Status: Acute Plan: Dopplers ordered to rule out DVT and negative. Assessment and Plan GI prophylaxis: PPI. DVT prophylaxis: SCDs, hold heparin drip. Patient has right chest port for access. Peripheral IV line in place. Patient has failure to thrive and poor at the wrist therapy for stage IV squamous cell carcinoma head and neck now with multiorgan dysfunction and poor prognosis. Likely adherence must be challenging for patient given his posterior cecum stenosis and polysubstance dependence. He told Dr. bhatti that he wants his brother, Sly Arcos, to make medical decisions on his behalf when he is unable to make decisions. At this time the patient does not appear fully capacitated medically to take medical decisions as he has confusion. By Dr. collazo. Discharge Planning Continue to monitor in the medical floor. Problem Qualifiers (1) Acute liver failure: Qualified Code: K72.00 - Acute liver failure without hepatic coma (2) Hypertension: Qualified Code: I10 - Essential hypertension Sandro Walter MD Nov 19, 2016 08:14
--- NOTE | 2016-11-19 08:44 | HHI.NPPN ---
Subjective Interval History Renal function has improved. Hypernatremia persists. Note from Oncologist noted. Review of Systems General Constitutional: Fatigue, Weight Change Objective Data Data 11/18/16 11/19/16 19:00 07:00 Intake Total 1117 ml 2015 ml Output Total 800 ml 950 ml Balance 317 ml 1065 ml Intake Oral 480 ml 360 ml IV Total 637 ml 1655 ml Output Urine Total 800 ml 950 ml # Bowel Movements 1 3 Vital Signs Date Time Temp Pulse Resp B/P Pulse Ox O2 Delivery O2 Flow Rate FiO2 11/19/16 06:00 59 11/19/16 04:00 59 11/19/16 04:00 97.0 60 9 147/109 91 11/19/16 02:00 52 11/19/16 00:00 96.8 52 23 138/96 95 11/19/16 00:00 52 11/18/16 22:00 57 11/18/16 20:00 97.4 59 18 131/89 95 11/18/16 20:00 59 11/18/16 18:00 58 11/18/16 16:00 65 11/18/16 16:00 97.9 65 18 137/94 94 11/18/16 14:00 63 11/18/16 12:00 71 11/18/16 12:00 97.2 71 19 123/84 95 11/18/16 10:00 65 11/18/16 09:38 12 -: 11/19/16 0535 11/19/16 0154 Physical Exam General Appearance: Malnourished Eyes Eye Exam: Pupils Equal Throat Throat Exam: Oral Mucosa [place] & Moist Neck Neck Exam: Neck Supple Pulmonary Resp Exam: Clear Bilaterally Cardiology CV Exam: Regular, Normal Sinus Rhythm Gastrointestinal/Abdomen GI Exam: Soft, Non-Tender, Bowel Sounds Present Musculoskeletal MS Exam: Joints Intact MS Remarks muscle wasting. Emaciated. Neurologic Neuro Exam: Moving All Extremities Assessment/Plan Problem List: (1) MINO (acute kidney injury) Plan: Renal function continues to improve. MINO due to prerenal azotemia and use of NSAIDs Non oliguric. Avoid nephrotoxic agents. (2) Failure to thrive in adult Plan: palliative has been consulted encourage nutrition, hydration continue IVF , refusing PEG tube for nutrition (3) Hypertension Plan: BP acceptable he is not on any antihypertensives at this time (4) Acute hepatitis Plan: GI following, work up in progress avoid hepatotoxic medications (5) Hypernatremia Plan: Change IVF to D5W. (6) Hypokalemia Plan: Replace as needed, improved. Po Booker MD Nov 19, 2016 08:44
[2016-11-19] MEDS ORDERED: DEXTROSE 5% IN WATE 1000ML INJ 1,000 ML IV SCH (08:45)
[2016-11-19] MEDS ORDERED: PANTOPRAZOLE SOD 40 MG DELAYED RELEASE TAB PO SCH (09:00)
[2016-11-19] MEDS: LACTULOSE SYRUP 20 GM/30 ML CUP PO SCH ×2 (09:00→20:08)
[2016-11-19] MEDS: DOCUSATE SODIUM 100 MG CAP PO SCH ×2 (09:00→20:08)
[2016-11-19 09:01] LABS: APTT (PATIENT) 71.1 SEC (24.3-30.1)
--- NOTE | 2016-11-19 09:31 | PD.ONC.PN ---
Subjective Subjective Remarks Afebrile overnight. Patient resting in bed. Per nurse, he had nosebleed earlier this morning. No other overnight events. Objective Data Date Time Temp Pulse Resp B/P Pulse Ox O2 Delivery O2 Flow Rate FiO2 11/19/16 06:00 59 11/19/16 04:00 59 11/19/16 04:00 97.0 60 9 147/109 91 11/19/16 02:00 52 11/19/16 00:00 96.8 52 23 138/96 95 11/19/16 00:00 52 11/18/16 22:00 57 11/18/16 20:00 97.4 59 18 131/89 95 11/18/16 20:00 59 11/18/16 18:00 58 11/18/16 16:00 65 11/18/16 16:00 97.9 65 18 137/94 94 11/18/16 14:00 63 11/18/16 12:00 71 11/18/16 12:00 97.2 71 19 123/84 95 11/18/16 10:00 65 11/18/16 09:38 12 11/19/16 11/19/16 11/19/16 07:00 15:00 23:00 Intake Total 1340 ml Output Total 500 ml Balance 840 ml Result Diagram: 11/19/16 0535 11/19/16 0154 Laboratory Results Laboratory Tests Test 11/18/16 11/18/16 11/19/16 11/19/16 14:30 20:45 01:54 05:14 Prothrombin Time 16.1 SEC Prothromb Time International 1.4 RATIO Ratio Activated Partial 30.6 SEC 30.0 SEC GREATER THAN Thromboplast Time 153.4 SEC Fibrinogen 114 mg/dL Sodium Level 155 MEQ/L 151 MEQ/L Potassium Level 4.0 MEQ/L 4.0 MEQ/L Chloride Level 119 MEQ/L 117 MEQ/L Carbon Dioxide Level 25.7 MEQ/L 30.0 MEQ/L Anion Gap 10 MEQ/L 4 MEQ/L Blood Urea Nitrogen 95 MG/DL 71 MG/DL Creatinine 1.53 MG/DL 1.27 MG/DL Estimat Glomerular Filtration 57 ML/MIN 70 ML/MIN Rate Random Glucose 88 MG/DL 89 MG/DL Calcium Level 8.4 MG/DL 8.2 MG/DL Total Bilirubin 5.5 MG/DL 3.5 MG/DL Direct Bilirubin 4.3 MG/DL 2.5 MG/DL Indirect Bilirubin 1.2 MG/DL 1.0 MG/DL Blood Type A POSITIVE Direct Antiglobulin Test NEGATIVE ([place]) White Blood Count 6.1 TH/MM3 5.0 TH/MM3 Red Blood Count 4.38 MIL/MM3 3.99 MIL/MM3 Hemoglobin 15.4 GM/DL 14.0 GM/DL Hematocrit 45.3 % 41.5 % Mean Corpuscular Volume 103.3 FL 104.0 FL Mean Corpuscular Hemoglobin 35.1 PG 35.1 PG Mean Corpuscular Hemoglobin 34.0 % 33.8 % Concent Red Cell Distribution Width 14.2 % 14.7 % Platelet Count 40 TH/MM3 37 TH/MM3 Mean Platelet Volume 9.4 FL 9.5 FL Phosphorus Level 2.2 MG/DL Magnesium Level 2.1 MG/DL Albumin 2.2 GM/DL 2.4 GM/DL Aspartate Amino Transf 1978 U/L (AST/SGOT) Alanine Aminotransferase 1115 U/L (ALT/SGPT) Alkaline Phosphatase 1371 U/L Total Protein 5.2 GM/DL Test 11/19/16 11/19/16 11/19/16 11/19/16 05:35 07:01 07:10 08:35 Hemoglobin 14.2 GM/DL Hematocrit 43.5 % Activated Partial GREATER THAN 71.1 SEC Thromboplast Time 153.4 SEC Fibrinogen 128 mg/dL Blood Type A POSITIVE Blood Bank Comment Phosphorus Level 2.1 MG/DL Culture Results Microbiology Date/Time Procedure Status Source Growth 11/16/16 17:40 Urine Culture - Final Complete Urine Clean Catch 50-100,000 CFU/ML MIXED GRAM POSITIVE... 11/16/16 17:45 Aerobic Blood Culture - Preliminary Resulted Blood Peripheral NO GROWTH IN 2 DAYS 11/16/16 17:45 Anaerobic Blood Culture - Preliminary Resulted Blood Peripheral NO GROWTH IN 2 DAYS 11/16/16 17:46 Aerobic Blood Culture - Preliminary Resulted Blood Peripheral NO GROWTH IN 2 DAYS 11/16/16 17:46 Anaerobic Blood Culture - Preliminary Resulted Blood Peripheral NO GROWTH IN 2 DAYS Administered Medications Medications (Trade) Dose Ordered Sig/Karon Route PRN Reason Start Time Stop Time Status Last Admin Dose Admin Sodium Chloride (NS Flush) 2 ml UNSCH PRN IVF FLUSH AFTER USING IV ACCESS 11/16/16 17:15 11/16/16 21:59 Hydromorphone HCl (Dilaudid Pf Inj) 0.2 mg Q4H PRN IV PUSH PAIN 1-3 11/16/16 21:30 11/18/16 06:30 Hydromorphone HCl (Dilaudid Pf Inj) 0.5 mg Q4H PRN IV PUSH PAIN 4-8 11/16/16 21:30 11/19/16 05:11 Hydromorphone HCl (Dilaudid Pf Inj) 1 mg Q4H PRN IV PUSH PAIN 9-10/10 11/16/16 21:30 11/18/16 09:08 Rifaximin (Xifaxan) 550 mg BID PO 11/16/16 22:00 11/18/16 20:30 Sodium Chloride (NS Flush) 2 ml BID .XX 11/17/16 09:00 11/18/16 20:30 Docusate Sodium (Colace) 100 mg BID PO 11/17/16 09:00 11/18/16 09:09 Chlorhexidine Gluconate 3 pack 3 pack Taper DAILY@04 TOP 11/17/16 04:00 11/13/17 03:59 11/19/16 04:00 Thiamine HCl/ Sodium Chloride (Thiamine Inj/NS Inj) 101 ml @ 101 mls/hr DAILY IV 11/17/16 21:00 11/18/16 09:09 Folic Acid (Folate) 1 mg DAILY PO 11/17/16 09:00 11/18/16 09:08 Multivitamins (Theragran) 1 tab DAILY PO 11/17/16 09:00 11/18/16 09:09 Multi-Ingredient Mouthwash/Gargle 5 ml 5 ml QID SWISH-SWAL 11/17/16 09:00 11/18/16 20:31 Cefepime HCl/ Sodium Chloride (Maxipime Inj/NS Inj) 100 ml @ 200 mls/hr Q24H IV 11/17/16 20:00 11/18/16 20:30 Lactulose 30 ml 30 ml BID PO 11/17/16 21:00 11/18/16 09:08 Heparin Sodium/ Dextrose 250 ml @ 0 mls/hr TITRATE IV 11/17/16 17:30 Hold 11/17/16 17:55 Multivitamins/ Folic Acid/Sodium Chloride (Mvi-12 Inj/ Folvite Inj/NS 500 ml Inj) 510.2 ml @ 100 mls/hr Q24H IV 11/17/16 21:00 11/22/16 20:59 11/18/16 22:48 Carvedilol (Coreg) 3.125 mg Q12HR PO 11/18/16 21:00 11/18/16 20:30 Objective Remarks GENERAL: Severely malnourished male, lying in bed, resting SKIN: Warm and dry. HEAD: Normocephalic. EYES: No scleral icterus. No injection or drainage. Nose: there is some dried blood around the nares, but no active bleeding. NECK: Supple, trachea midline CARDIOVASCULAR: +S1/S2 RESPIRATORY: anterior azul with scattered rhonchi. GASTROINTESTINAL: Abdomen soft, non-tender, nondistended. EXTREMITIES: No cyanosis NEUROLOGICAL: No obvious focal deficit. Awake, alert, and oriented x3. Assessment/Plan Problem List: (1) Intracardiac thrombus Status: Acute Plan: --2-D echocardiogram showed significant left ventricular dysfunction with an ejection fraction of 20% with severe global hypokinesis, mild mitral and tricuspid regurgitation. --also found to have a very large left ventricular thrombus. --cannot tolerate heparin d/t GI bleed + coagulopathy (2) Coagulopathy Status: Acute Plan: --d/t DIC, multiorgan failure --Check daily DIC profile and if fibrinogen is less than 150, will transfuse to keep it above 150. 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 h/o Polysubstance abuse. Alcohol abuse. Hypertension. Hyperlipidemia. Plan 1. monitor CBC, coags 2. give 2 units FFP for nosebleed, coagulopathy this AM--spoke with blood bank, they already have 2 units thawed for this patient from earlier order, and only one unit of platelets left in the hospital. Will give the 2 units FFP and monitor closely. Attending Statement Confuse. Coagulopathy End stage H and N ca Extensive d/w daughter ( She works at [employer] [facility] [place]) Daughter agrees to Hospice. Consult hospice. D/W RN The exam, history, and the medical decision-making described in the above note were completed with the assistance of the mid-level provider. I reviewed and agree with the findings presented. I attest that I had a [id number] encounter with the patient on the same day, and personally performed and documented my assessment and findings in the medical record. Problem Qualifiers (1) Altered mental status: Qualified Code: R40.0 - Somnolence Milagro Pompa Nov 19, 2016 09:31 Ange Palm MD Nov 19, 2016 22:30
[2016-11-19] MEDS: SODIUM CHLORIDE 0.9% FLUSH 10 ML FLUSH SCH ×2 (10:15→20:08)
[2016-11-19] MEDS: NYSTAT/DIPHENHY/LIDO MOUTHWASH (Adult) 120ML SWISH-SWAL SCH ×4 (10:17→20:49)
[2016-11-19] MEDS: THIAMINE INJ 100 MG in SODIUM CHLORIDE 0.9% INJ 100 ML IV SCH (10:18)
[2016-11-19] MEDS: FOLIC ACID 1 MG TAB PO SCH (10:18)
[2016-11-19] MEDS: RIFAXIMIN 550 MG TAB PO SCH ×2 (10:19→20:08)
[2016-11-19] MEDS: CARVEDILOL 3.125 MG TAB PO SCH ×2 (10:19→20:08)
[2016-11-19] MEDS: MULTIVITAMIN TAB PO SCH (10:20)
--- NOTE | 2016-11-19 12:11 | HHI.GIFU ---
Subjective Remarks 61 yo male lying in bed. Confused. Per nurse patient had episode of rectal bleeding and hemoptysis last night. (Jeannie Marie) Objective Vitals I&O Vital Signs Date Time Temp Pulse Resp B/P Pulse Ox O2 Delivery O2 Flow Rate FiO2 11/19/16 06:00 59 11/19/16 04:00 59 11/19/16 04:00 97.0 60 9 147/109 91 11/19/16 02:00 52 11/19/16 00:00 96.8 52 23 138/96 95 11/19/16 00:00 52 11/18/16 22:00 57 11/18/16 20:00 97.4 59 18 131/89 95 11/18/16 20:00 59 11/18/16 18:00 58 11/18/16 16:00 65 11/18/16 16:00 97.9 65 18 137/94 94 11/18/16 14:00 63 11/18/16 12:00 71 11/18/16 12:00 97.2 71 19 123/84 95 I/O 11/18/16 11/18/16 11/18/16 11/19/16 11/19/16 11/19/16 07:00 15:00 23:00 07:00 15:00 23:00 Intake Total 1128 ml 1117 ml 675 ml 1340 ml Output Total 1000 ml 800 ml 450 ml 500 ml Balance 128 ml 317 ml 225 ml 840 ml Intake Oral 240 ml 480 ml 240 ml 120 ml IV Total 888 ml 637 ml 435 ml 1220 ml Output Urine Total 1000 ml 800 ml 450 ml 500 ml # Bowel Movements 0 1 1 2 Laboratory Laboratory Tests Test 11/18/16 11/18/16 11/19/16 11/19/16 14:30 20:45 01:54 05:14 Prothrombin Time 16.1 Prothromb Time International 1.4 Ratio Activated Partial 30.6 30.0 GREATER THAN Thromboplast Time 153.4 Fibrinogen 114 Sodium Level 155 151 Potassium Level 4.0 4.0 Chloride Level 119 117 Carbon Dioxide Level 25.7 30.0 Anion Gap 10 4 Blood Urea Nitrogen 95 71 Creatinine 1.53 1.27 Estimat Glomerular Filtration 57 70 Rate Random Glucose 88 89 Calcium Level 8.4 8.2 Total Bilirubin 5.5 3.5 Direct Bilirubin 4.3 2.5 Indirect Bilirubin 1.2 1.0 Blood Type A POSITIVE Direct Antiglobulin Test NEGATIVE ([place]ley) White Blood Count 6.1 5.0 Red Blood Count 4.38 3.99 Hemoglobin 15.4 14.0 Hematocrit 45.3 41.5 Mean Corpuscular Volume 103.3 104.0 Mean Corpuscular Hemoglobin 35.1 35.1 Mean Corpuscular Hemoglobin 34.0 33.8 Concent Red Cell Distribution Width 14.2 14.7 Platelet Count 40 37 Mean Platelet Volume 9.4 9.5 Phosphorus Level 2.2 Magnesium Level 2.1 Albumin 2.2 2.4 Aspartate Amino Transf 1978 (AST/SGOT) Alanine Aminotransferase 1115 (ALT/SGPT) Alkaline Phosphatase 1371 Total Protein 5.2 Test 11/19/16 11/19/16 11/19/16 11/19/16 05:35 07:01 07:10 08:35 Hemoglobin 14.2 Hematocrit 43.5 Activated Partial GREATER THAN 71.1 Thromboplast Time 153.4 Fibrinogen 128 Blood Type A POSITIVE Blood Bank Comment Phosphorus Level 2.1 Date/Time Procedure Status Source Growth 11/16/16 17:46 Aerobic Blood Culture - Preliminary Resulted Blood Peripheral NO GROWTH IN 3 DAYS 11/16/16 17:46 Anaerobic Blood Culture - Preliminary Resulted Blood Peripheral NO GROWTH IN 3 DAYS 11/16/16 17:40 Urine Culture - Final Complete Urine Clean Catch 50-100,000 CFU/ML MIXED GRAM POSITIVE... Imaging Last Impressions Lower Extremity Ultrasound 11/18/16 0000 Signed Impressions: Service Date/Time: Friday, November 18, 2016 20:58 - CONCLUSION: Normal examination. Davin Salinas MD Head CT 11/16/161726 Signed Impressions: Service Date/Time: October 19:06 - CONCLUSION: Slight atrophic and small vessel ischemic changes without any evidence for acute hemorrhage or mass effect. Davin Salinas MD Chest X-Ray 11/16/166 Signed Impressions: Service Date/Time: October 17:26 - CONCLUSION: 1. No acute cardiopulmonary disease. 2. Stable large bleb in the left lung. Rizwan Tyson MD Liver Ultrasound 11/16/16 0000 Signed Impressions: Service Date/Time: October 22:10 - CONCLUSION: 1. Small and diffusely heterogeneous liver without a focal lesion. There is small ascites but no splenomegaly. 2. Small sludge/debris within the gallbladder. No evidence of biliary obstruction. 3. Echogenic right kidney typical of chronic parenchymal disease. There is no hydronephrosis. Small, simple/benign cysts are noted. Jose Saucedo MD Abdomen/Pelvis CT 11/16/16 0000 Signed Impressions: Service Date/Time: October 23:55 - CONCLUSION: 1. Small liver with small ascites and diffuse body wall edema/anasarca. 2. No focal lesion or localized inflammatory changes are demonstrated. 3. Large bleb/bullae seen of both visualized lung bases. 4. Lumbar spine findings as above, including a right paracentral disc protrusion at L4/L5. Jose Saucedo MD Physical Exam GENERAL: Malnourished appearing HEENT: Normocephalic. Bright red blood visualized in mouth. +icteric NECK: Neck is supple. CHEST: CTA, diminished CARDIAC: RRR. 2/6 systolic murmur heard best at RSB ABDOMEN: Soft, nondistended, diffuse tenderness on palpation; no hepatosplenomegaly; bowel sounds diminished. EXTREMITIES: No clubbing, cyanosis, or edema. SKIN: Normal; no rash; no jaundice. MARBLE COPER: Lethargic, poor historian. (Jeannie Marie) Assessment and Plan Plan ASSESSMENT: - Elevated LFTs. Significantly elevated LFTs on admission with T. Bili 5.1, AST 2362, ALT 1198, Alk Phosph 1123. Liver Ultrasound (11/16/16)----> 1. Small and diffusely heterogeneous liver without a focal lesion. There is small ascites but no splenomegaly. 2. Small sludge/debris within the gallbladder. No evidence of biliary obstruction. 3. Echogenic right kidney typical of chronic parenchymal disease. There is no hydronephrosis. Small, simple/benign cysts are noted. Abdomen/Pelvis CT ()----> 1. Small liver with small ascites and diffuse body wall edema/anasarca. 2. No focal lesion or localized inflammatory changes are demonstrated. 3. Large bleb/bullae seen of both visualized lung bases. 4. Lumbar spine findings as above, including a right paracentral disc protrusion at L4/L5. Today, T. Bili 3.5, AST 1978, ALT 1115, Alk Phosph 1371. He denies liver disease, but is a poor historian. Hepatitis panel negative. Anti-smooth muscle Ab negative. HARLEEN pending. Mitoch M2 Ab pending. Additional labs pending. No documented hypotensive episodes. He does have very mild Rhabdo and elevated Troponin. He also was positive for Cocaine and MJ. He drinks ETOH, but is unable to quantify. He also has a bleb in left lung. It is unclear at this time if his liver enzyme derangement is related to drug use- PSA vs. possible chemotherapy, shocked liver, infection, or viral- or if he has any underlying liver disease. Will order liver workup and closely monitor. - Dysphagia, Odynophagia. PPI, Magic mouthwash. - Protein calorie malnutrition. PEG tube has been recommended and he has refused and reports that he still does not want a feeding tube. - Elevated Troponin. Pt was also positive for cocaine so it is unclear if this is related to coronary spasm or true NSTEMI. - MINO with electrolyte abnormalities, Creat 1.27. - AMS, had hypoglycemia when EMS arrived. Lethargic, poor historian. Has elevated ammonia. Xifaxan, lactulose. - Constipation. Lactulose, colace. - Coagulopathy, PT 16.1, INR 1.4, APTT 71.1, but was greater than 153.4 early AM. - Left lobe bleb. 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 Followed by Dr. Escalona, last note in EMR was from September 15, 2016, at which the plan was to start on concurrent chemotherapy and radiation. The patient is a very poor historian. He reports that he last had chemotherapy "a few weeks ago" and radiation "a few days ago," but he cannot provide an approximate date. According to the EMR, he is homeless and has been noncompliant. - Rectal bleeding, heparin has been stopped. APTT was markedly elevated this morning, as above, but this has been corrected. PLAN: - Full liquids - PPI - Xifaxan - Lactulose - Magic Mouthwash - Ferritin, Iron Saturation - Ceruloplasmin, Alpha 1 Antitrypsin - Monitor LFTs, Coag's - Abx per CCM - Avoid hepatotoxic meds - Today patient states he does not want a EGD/Colonoscopy and he does not want PEG tube placement, I asked him this multiple times. Patient is confused. - Continue with current supportive care - Further recommendations to follow based on results of above Patient seen and evaluated by Dr. Mayers and myself and this note is written on his behalf. (Jeannie Marie) Physician Comments Patient seen and examined Patient apparently actively bleeding Daughter at bedside we discussed extensively medical issues the need for anticoagulation and the ongoing bleeding and the malignancy and at this point a decision was made to proceed with hospice care I agree with hospice care at this point no further intervention from a GI standpoint We will sign off (Jorge Mayers MD) Jeannie Marie Nov 19, 2016 12:11 Jorge Mayers MD Nov 19, 2016 21:52
[2016-11-19 15:12] LABS: APTT (PATIENT) 24.8 SEC (24.3-30.1)
[2016-11-19] MEDS ORDERED: SODIUM CHLORID 0.9% 500 ML INJ 500 ML IV ONE (15:30)
[2016-11-19] MEDS ORDERED: TERBUTALINE INJ 1 MG/ML AMP SQ PRN (16:00)
--- NOTE | 2016-11-19 16:32 | PD.CARD.PN ---
Subjective Subjective Remarks No angina or SOB, hypotensive Objective Medications Current Medications Medications (Trade) Dose Ordered Sig/Karon Route Start Time Stop Time Status Last Admin (NS Flush) 2 ml UNSCH PRN IVF 11/16/16 17:15 11/16/16 21:59 (Dilaudid Pf Inj) 0.2 mg Q4H PRN IV PUSH 11/16/16 21:30 11/18/16 06:30 (Dilaudid Pf Inj) 0.5 mg Q4H PRN IV PUSH 11/16/16 21:30 11/19/16 11:53 (Dilaudid Pf Inj) 1 mg Q4H PRN IV PUSH 11/16/16 21:30 11/18/16 09:08 (Xifaxan) 550 mg BID PO 11/16/16 22:00 11/19/16 10:19 (NS Flush) 2 ml UNSCH PRN .XX 11/16/16 22:15 (NS Flush) 2 ml BID .XX 11/17/16 09:00 11/19/16 10:15 (Zofran Inj) 4 mg Q6H PRN IV 11/16/16 22:15 (Colace) 100 mg BID PO 11/17/16 09:00 11/18/16 09:09 (Dulcolax Supp) 10 mg DAILY PRN RECTAL 11/16/16 22:15 Miscellaneous Information 1 Q361D XX 11/16/16 22:15 (Chlorhexidine 2% Cloth) 3 pack Taper DAILY@04 TOP 11/17/16 04:00 11/13/17 03:59 11/19/16 04:00 Chlorhexidine Gluconate 3 pack 3 pack UNSCH PRN TOP 11/16/16 22:15 (Thiamine Inj/NS Inj) 101 ml @ 101 mls/hr DAILY IV 11/17/16 21:00 11/19/16 10:18 (Folate) 1 mg DAILY PO 11/17/16 09:00 11/19/16 10:18 (Theragran) 1 tab DAILY PO 11/17/16 09:00 11/19/16 10:20 Multi-Ingredient Mouthwash/Gargle 5 ml 5 ml QID SWISH-SWAL 11/17/16 09:00 11/19/16 10:17 (Maxipime Inj/NS Inj) 100 ml @ 200 mls/hr Q24H IV 11/17/16 20:00 11/18/16 20:30 (Lactulose Liq) 30 ml BID PO 11/17/16 21:00 11/18/16 09:08 (Heparin Inj) 5,000 units UNSCH PRN IV 11/17/16 23:30 Hold Heparin Sodium (Porcine) 2500 units 2,500 units UNSCH PRN IV 11/17/16 23:30 Hold Heparin Sodium/ Dextrose 250 ml @ 0 mls/hr TITRATE IV 11/17/16 17:30 Hold 11/17/16 17:55 (Mvi-12 Inj/ Folvite Inj/NS 500 ml Inj) 510.2 ml @ 100 mls/hr Q24H IV 11/17/16 21:00 11/22/16 20:59 11/18/16 22:48 (Coreg) 3.125 mg Q12HR PO 11/18/16 21:00 11/19/16 10:19 (Protonix) 40 mg DAILY PO 11/19/16 09:00 11/19/16 10:18 Miscellaneous Information D/C ICU ELECTROLYTE ORDERS... UNSCH PRN .XX 11/19/16 03:45 Miscellaneous Information ICU - CALL ORDERING PHYSIC... UNSCH PRN .XX 11/19/16 03:45 (KCl 40 Meq Premix Inj) 100 ml @ 25 mls/hr UNSCH PRN IV 11/19/16 03:45 Potassium Bicarb/ Potassium Chloride 50 meq 50 meq UNSCH PRN PO 11/19/16 03:45 Potassium Chloride 100 ml @ 50 mls/hr UNSCH PRN IV 11/19/16 03:45 Magnesium Sulfate 4 gm/Sodium Chloride 108 ml @ 54 mls/hr UNSCH PRN IV 11/19/16 03:45 (Magnesium Sulfate Inj/NS Inj) 104 ml @ 52 mls/hr UNSCH PRN IV 11/19/16 03:45 Magnesium Oxide 800 mg 800 mg UNSCH PRN PO 11/19/16 03:45 (Sodium Phosphate Inj/NS 250 ml Inj) 260 ml @ 43.333 mls/ hr UNSCH PRN IV 11/19/16 03:45 Potassium Phosphate 2000 mg 2,000 mg UNSCH PRN PO 11/19/16 03:45 Sodium Chloride 250 ml @ 15 mls/hr ONCE ONCE IV 11/19/16 07:15 11/19/16 23:54 11/19/16 10:15 Sodium Chloride 250 ml @ 15 mls/hr ONCE ONCE IV 11/19/16 07:15 11/19/16 23:54 (D5W 1000 ml Inj) 1,000 ml @ 75 mls/hr [id number] IV 11/19/16 08:45 11/19/16 10:14 Hydrocortisone Sodium Succinate 50 mg 50 mg Q6HR IV PUSH 11/19/16 18:00 (Levophed-Dextrose Drip) 250 ml @ 0 mls/hr TITRATE IV 11/19/16 16:00 (Brethine Inj) 1 mg UNSCH PRN SQ 11/19/16 16:00 Vital Signs / I&O Vital Signs Date Time Temp Pulse Resp B/P Pulse Ox O2 Delivery O2 Flow Rate FiO2 11/19/16 14:00 72 11/19/16 12:23 12 11/19/16 12:00 98.1 70 12 93/64 99 11/19/16 12:00 70 11/19/16 10:00 64 11/19/16 08:00 68 11/19/16 08:00 97.9 68 15 116/88 97 11/19/16 06:00 59 11/19/16 04:00 59 11/19/16 04:00 97.0 60 9 147/109 91 11/19/16 02:00 52 11/19/16 00:00 96.8 52 23 138/96 95 11/19/16 00:00 52 11/18/16 22:00 57 11/18/16 20:00 97.4 59 18 131/89 95 11/18/16 20:00 59 11/18/16 18:00 58 I/O 11/18/16 11/18/16 11/18/16 11/19/16 11/19/16 11/19/16 07:00 15:00 23:00 07:00 15:00 23:00 Intake Total 1128 ml 1117 ml 675 ml 1340 ml 1941 ml Output Total 1000 ml 800 ml 450 ml 500 ml 800 ml Balance 128 ml 317 ml 225 ml 840 ml 1141 ml Intake Oral 240 ml 480 ml 240 ml 120 ml 60 ml IV Total 888 ml 637 ml 435 ml 1220 ml 1458 ml Platelets 423 ml Output Urine Total 1000 ml 800 ml 450 ml 500 ml 800 ml # Bowel Movements 0 1 1 2 3 Physical Exam GENERAL: In NAD, cachectic SKIN: Warm and dry. HEAD: Normocephalic. EYES: No scleral icterus. No injection or drainage. NECK: Supple, trachea midline. No JVD or lymphadenopathy. CARDIOVASCULAR: Regular rate and rhythm without murmurs, gallops, or rubs. RESPIRATORY: Breath sounds equal bilaterally. No accessory muscle use. GASTROINTESTINAL: Abdomen soft, non-tender, nondistended. MUSCULOSKELETAL: No cyanosis, or edema. Laboratory Laboratory Tests Test 11/18/16 11/19/16 11/19/16 11/19/16 20:45 01:54 05:14 05:35 White Blood Count 6.1 TH/MM3 5.0 TH/MM3 Red Blood Count 4.38 MIL/MM3 3.99 MIL/MM3 Hemoglobin 15.4 GM/DL 14.0 GM/DL 14.2 GM/DL Hematocrit 45.3 % 41.5 % 43.5 % Mean Corpuscular Volume 103.3 FL 104.0 FL Mean Corpuscular Hemoglobin 35.1 PG 35.1 PG Mean Corpuscular Hemoglobin 34.0 % 33.8 % Concent Red Cell Distribution Width 14.2 % 14.7 % Platelet Count 40 TH/MM3 37 TH/MM3 Mean Platelet Volume 9.4 FL 9.5 FL Activated Partial 30.0 SEC GREATER THAN GREATER THAN Thromboplast Time 153.4 SEC 153.4 SEC Sodium Level 151 MEQ/L Potassium Level 4.0 MEQ/L Chloride Level 117 MEQ/L Carbon Dioxide Level 30.0 MEQ/L Anion Gap 4 MEQ/L Blood Urea Nitrogen 71 MG/DL Creatinine 1.27 MG/DL Estimat Glomerular Filtration 70 ML/MIN Rate Random Glucose 89 MG/DL Calcium Level 8.2 MG/DL Phosphorus Level 2.2 MG/DL Magnesium Level 2.1 MG/DL Albumin 2.2 GM/DL 2.4 GM/DL Total Bilirubin 3.5 MG/DL Direct Bilirubin 2.5 MG/DL Indirect Bilirubin 1.0 MG/DL Aspartate Amino Transf 1978 U/L (AST/SGOT) Alanine Aminotransferase 1115 U/L (ALT/SGPT) Alkaline Phosphatase 1371 U/L Total Protein 5.2 GM/DL Fibrinogen 128 mg/dL Test 11/19/16 11/19/16 11/19/16 11/19/16 07:01 07:10 08:35 14:36 Blood Type A POSITIVE Blood Bank Comment Phosphorus Level 2.1 MG/DL Activated Partial 71.1 SEC 24.8 SEC Thromboplast Time Imaging Last Impressions Lower Extremity Ultrasound 11/18/16 0000 Signed Impressions: Service Date/Time: Friday, November 18, 2016 20:58 - CONCLUSION: Normal examination. Davin Salinas MD Head CT 11/16/16 1727 Signed Impressions: Service Date/Time: October 19:06 - CONCLUSION: Slight atrophic and small vessel ischemic changes without any evidence for acute hemorrhage or mass effect. Davin Salinas MD Chest X-Ray 11/16/16 1716 Signed Impressions: Service Date/Time: October 17:26 - CONCLUSION: 1. No acute cardiopulmonary disease. 2. Stable large bleb in the left lung. Rizwan Tyson MD Liver Ultrasound 11/16/16 0000 Signed Impressions: Service Date/Time: October 22:10 - CONCLUSION: 1. Small and diffusely heterogeneous liver without a focal lesion. There is small ascites but no splenomegaly. 2. Small sludge/debris within the gallbladder. No evidence of biliary obstruction. 3. Echogenic right kidney typical of chronic parenchymal disease. There is no hydronephrosis. Small, simple/benign cysts are noted. Jose Saucedo MD Abdomen/Pelvis CT 11/16/16 0000 Signed Impressions: Service Date/Time: October 23:55 - CONCLUSION: 1. Small liver with small ascites and diffuse body wall edema/anasarca. 2. No focal lesion or localized inflammatory changes are demonstrated. 3. Large bleb/bullae seen of both visualized lung bases. 4. Lumbar spine findings as above, including a right paracentral disc protrusion at L4/L5. Jose Saucedo MD Assessment and Plan Problem List: (1) Thrombus in heart chamber (2) CHF (congestive heart failure) (3) Cardiomyopathy (4) Encephalopathy (5) Failure to thrive in adult (6) MINO (acute kidney injury) (7) Acute hepatitis (8) Severe dehydration (9) Hypertension (10) Hypokalemia (11) Hypernatremia (12) Malignancy Assessment and Plan Continue anticoagulation for LV thrombus. Continue tx for CHF, echo shows severe LV dysfunction. Has multiple medical problems and has been noncompliant with his care. Recommend palliative care evaluation. Continue ICU care. Hypotensive, started on pressors. Family deciding about medical care directives. Problem Qualifiers (1) Hypertension: Qualified Code: I10 - Essential hypertension Sunitha Santos MD Nov 19, 2016 16:32
[2016-11-19] MEDS: HYDROCORTISONE SOD SUCCINATE 100 MG VIAL IV PUSH SCH (16:43)
[2016-11-19] MEDS: NOREPINEPHRINE-DEXTROSE DRIP 250 ML IV SCH ×2 (16:44→20:09)
[2016-11-19] MEDS ORDERED: DEXTROSE 5%-ELECTROLYTES R INJ 1,000 ML IV SCH (16:45)
--- NOTE | 2016-11-19 17:11 | HHI.CCPN ---
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 He underwent chemotherapy (TPF) and radiation in 2015 and had residual disease. He also has a long standing history of alcohol abuse, tobacco abuse, cocaine abuse and has had poor compliance with followup with heme-oncology. He is a very difficult historian and is currently encephalopathic, so it is difficult for me to ascertain what his most recent chemo/radiation history has been. According to notes from Dr. Marc Escalona, 09/15/16 he was supposed to start concurrent chemo/ radiation. Pt states that he has been on radiation therapy 5 days a week as recently as a week ago. He states his last chemo therapy was "earlier this year " but that he has not been following up for chemo. He is homeless and states that he resides in a garage on [facility]. He indicates that he has been taking hydromorphone 4 mg tabs for pain and gets 60 tabs a week. He states he ran out 2 days ago and he complains of pain and is repeatedly requesting hydromorphone. He also indicates that he has had difficulty eating because of pain and that, while he takes minimal amounts of Boost and Ensure at baseline, that he has had nothing to eat or drink for about 2 days. States he has never had a PEG (despite recommendations for one) and states "I never want one either ". Denies vomiting. States he has been constipated for about 2 weeks. Has had a slight cough, + chills. Had difficulty recalling last EtOH intake, said it may have been about 2 days ago. ED workup reveals creatinine of 2.57 (baseline 0.9- 1), AST 2300, ALT 1100, total bilirubin 5.1, lipase normal. Ammonia level is 108. Coags not yet performed. Lactic acid was 1.7. Troponin is 1.06. He has received 1/2 amps of D50 x2 for hypoglycemia (POC glucose 58). He has received 3 L NS bolus and was placed on D5 LR in the ED. Received cefepime and Levaquin. 11/17: Remains drowsy, arousable, knows he is at the hospital. Not in any acute distress currently. 2-D echo revealed LV thrombus so he was initiated on heparin for anticoagulation. 11/19: Reconsulted by Dr. Ferguson for rectal bleeding which started last night followed by hypotension today. Received 1 L fluid bolus however remained hypotensive with systolic blood pressure in the 70s. 2 units FFP is ordered earlier. When I evaluated the patient and he was drowsy but easily arousable. Confused. He denied any shortness of breath or chest pain at the time and did not appear to be in any acute distress. I ordered 1 unit of pheresis platelets. He has already been initiated on stress dose steroids. Dr. Ferguson discussed CODE STATUS with family and they wish to defer decision to her tomorrow and he will remain full CODE STATUS. No active rectal bleeding noted at the time of my evaluation. Objective Vital Signs Date Time Temp Pulse Resp B/P Pulse Ox O2 Delivery O2 Flow Rate FiO2 11/19/16 14:00 72 11/19/16 12:23 12 11/19/16 12:00 98.1 93/64 99 11/16/16 22:00 Nasal Cannula 11/16/16 19:04 2 Intake and Output 11/18/16 11/18/16 11/19/16 08:00 16:00 00:00 Intake Total 1128 ml 1117 ml 675 ml Output Total 1000 ml 800 ml 450 ml Balance 128 ml 317 ml 225 ml Result Diagram: 11/19/16 0535 11/19/16 0154 Other Results Laboratory Tests Test 11/18/16 11/19/16 11/19/16 11/19/16 20:45 01:54 05:14 05:35 White Blood Count 6.1 TH/MM3 5.0 TH/MM3 Red Blood Count 4.38 MIL/MM3 3.99 MIL/MM3 Hemoglobin 15.4 GM/DL 14.0 GM/DL 14.2 GM/DL Hematocrit 45.3 % 41.5 % 43.5 % Mean Corpuscular Volume 103.3 FL 104.0 FL Mean Corpuscular Hemoglobin 35.1 PG 35.1 PG Mean Corpuscular Hemoglobin 34.0 % 33.8 % Concent Red Cell Distribution Width 14.2 % 14.7 % Platelet Count 40 TH/MM3 37 TH/MM3 Mean Platelet Volume 9.4 FL 9.5 FL Activated Partial 30.0 SEC GREATER THAN GREATER THAN Thromboplast Time 153.4 SEC 153.4 SEC Sodium Level 151 MEQ/L Potassium Level 4.0 MEQ/L Chloride Level 117 MEQ/L Carbon Dioxide Level 30.0 MEQ/L Anion Gap 4 MEQ/L Blood Urea Nitrogen 71 MG/DL Creatinine 1.27 MG/DL Estimat Glomerular Filtration 70 ML/MIN Rate Random Glucose 89 MG/DL Calcium Level 8.2 MG/DL Phosphorus Level 2.2 MG/DL Magnesium Level 2.1 MG/DL Albumin 2.2 GM/DL 2.4 GM/DL Total Bilirubin 3.5 MG/DL Direct Bilirubin 2.5 MG/DL Indirect Bilirubin 1.0 MG/DL Aspartate Amino Transf 1978 U/L (AST/SGOT) Alanine Aminotransferase 1115 U/L (ALT/SGPT) Alkaline Phosphatase 1371 U/L Total Protein 5.2 GM/DL Fibrinogen 128 mg/dL Test 11/19/16 11/19/16 11/19/16 11/19/16 07:01 07:10 08:35 14:36 Blood Type A POSITIVE Blood Bank Comment Phosphorus Level 2.1 MG/DL Activated Partial 71.1 SEC 24.8 SEC Thromboplast Time Test 11/19/16 16:49 Blood Bank Comment Imaging Last Impressions Head CT 11/16/16 1727 Signed Impressions: Service Date/Time: October 19:06 - CONCLUSION: Slight atrophic and small vessel ischemic changes without any evidence for acute hemorrhage or mass effect. Davin Salinas MD Chest X-Ray 11/16/16 1716 Signed Impressions: Service Date/Time: October 17:26 - CONCLUSION: 1. No acute cardiopulmonary disease. 2. Stable large bleb in the left lung. Rizwan Tyson MD Liver Ultrasound 11/16/16 0000 Signed Impressions: Service Date/Time: October 22:10 - CONCLUSION: 1. Small and diffusely heterogeneous liver without a focal lesion. There is small ascites but no splenomegaly. 2. Small sludge/debris within the gallbladder. No evidence of biliary obstruction. 3. Echogenic right kidney typical of chronic parenchymal disease. There is no hydronephrosis. Small, simple/benign cysts are noted. Jose Saucedo MD Abdomen/Pelvis CT 11/16/16 0000 Signed Impressions: Service Date/Time: October 23:55 - CONCLUSION: 1. Small liver with small ascites and diffuse body wall edema/anasarca. 2. No focal lesion or localized inflammatory changes are demonstrated. 3. Large bleb/bullae seen of both visualized lung bases. 4. Lumbar spine findings as above, including a right paracentral disc protrusion at L4/L5. Jose Saucedo MD Objective Remarks GENERAL:Emaciated frail appearing male laying in bed not in any acute distress SKIN: peripherally cool, dry. HEAD: Atraumatic. Normocephalic. EYES: Pupils equal and round, reactive. +icteric. ENT: No nasal bleeding or discharge. Mucous membranes dry with mucositis on tongue. Palpable ~1.5 cm nodule at left angle of mandible. NECK: Trachea midline. no JVD. CHEST: mass like deformity of distal Left clavicle. CARDIOVASCULAR: occasional irregular beat, 2/6 systolic murmur RSM. RESPIRATORY: Port right chest. CTAB, no w/r/rhonchi. GASTROINTESTINAL: Abdomen scaphoid, vague diffuse abdominal tenderness, no rebound. Bowel sounds sluggish MUSCULOSKELETAL: Extremities without clubbing, cyanosis, or edema. No obvious deformities. NEUROLOGICAL: Awake and conversant but confused at times. No obvious cranial nerve deficits. Moves all extremities without focal deficits A/P Assessment and Plan NEURO: Failure to thrive Acute metabolic encephalopathy/hepatic encephalopathy Cocaine abuse Marijuana abuse Alcohol abuse Hyperammonemia Has hepatic encephalopathy. Severe volume depletion currently so will hold off on lactulose for now. Rifaximin 550 mg by mouth twice a day. Follow-up ammonia level. CT brain - no acute abnormality UDS positive for cocaine, THC. Checked APAP and ASA which are negative. RESP: Tobacco abuse L lung bleb Nasal cannula wean as tolerated. Albuterol every 2 hours as needed. CV: Hyperlipidemia History of hypertension Elevated troponin, ? cocaine induced vs type II NSTEMI in setting of multiorgan dysfunction. Hypotension Echo with LVEF 20%, LV thrombus. Dr. Santos from cardiology following. Anticoagulation with heparin held today due to rectal bleeding. Received fluid bolus earlier. Starting Levophed for pressor support. H/o hyperlipidemia but not candidate for statin at this time due to elevated LFTs. GI: Dysphagia Severe chronic protein energy malnutrition Jaundice, Elevated LFTs Constipation Rectal bleeding Acute liver failure may be secondary to alcoholic hepatitis, chemotherapeutic/ drug toxicity, metastatic disease, infectious/sepsis. Likely underlying cirrhosis. GI following. Refuses NG tube or PEG tube placement. Magic mouthwash for mucositis. Follow serial CBC, transfuse to keep hemoglobin above 8 g percent. FEN/RENAL: Acute kidney injury Acute rhabdomyolysis Hypermagnesemia Hyperphosphatemia Strict intake output, monitor I/O. Monitor creatinine and electrolytes. Change IV fluid to D5 normosol at 100 cc/h in view of hypotension from D5 water. ID: Follow up urine and blood culture.blood cultures on admission with no growth. Given dose of vancomycin to cover for sepsis in setting of port. Has h/o pcn allergy, tolerated cefepime in ED so will continue empirically for sepsis/SBP tx /prophylaxis. Repeat blood cultures sent 11/19 HEME: Stage IV Squamous cell carcinoma head and neck Erythrocyte macrocytosis Consulted heme-oncology, patient known to Dr. Escalona. Transfused 2 units FFP and heparin stopped due to rectal bleeding. Thrombocytopenia noted. Platelet transfusion ordered. Cannot Anticoagulate with heparin for LV thrombus in setting of rectal bleeding ENDO: Acute hypoglycemia Monitor glucose q 4hours. [id number] @ 100 ml/hr. Started stress dose steroids with hydrocortisone 50 mg IV every 6 hourly on 11/19 PROPH: SCDs for DVT prophylaxis. Protonix 40 mg IV daily for stress ulcer prophylaxis. No heparin currently in view of rectal bleeding ACCESS: R chest port. PIV in place Patient with failure to thrive and poor adherence to therapy for stage IV squamous cell carcinoma of head and neck now with multiorgan dysfunction and poor prognosis. Adherence must be exceedingly challenging given his social circumstances and polysubstance dependence. He told me that he wants his brother , Sly Arcos, to make medical decisions on his behalf when he is unable to make decisions. He currently is able to provide some history but he does not appear fully capacitated for medical decision making as he is confused at times and had inconsistent responses to the same questions. Nonetheless, attempted to discuss code status and he states he is FULL CODE. Consulted palliative care medicine to help facilitate decisions regarding goals of care Family has not decided regarding changing CODE STATUS yet so he remains a full code. Prognosis appears extremely poor. Condition critical Time spent on critical care excluding procedures 45 minutes Angel Merritt MD Nov 19, 2016 17:11
[2016-11-19] MEDS ORDERED: LEVOFLOXACIN 500 MG PREMIX INJ 100 ML IV SCH (17:15)
[2016-11-19 17:26] LABS: HEMATOCRIT 24.8 % (39.0-51.0)
[2016-11-19 17:38] LABS: APTT (PATIENT) 37.4 SEC (24.3-30.1); INTERNATIONAL NORMALIZED RATIO 1.3 RATIO; PROTHROMBIN TIME - PATIENT 14.9 SEC (9.8-11.6)
[2016-11-19] MEDS: DEXTROSE 5%-LACTATED RING INJ 1,000 ML IV SCH (17:45)
--- NOTE | 2016-11-19 18:55 | HHI.PR ---
Addendum to Inpatient Note Addendum Reason: Additional Documentation Additional Information Patient's daughter(Liana Mark) has decided to change his CODE STATUS to DNR and requests hospice. Changed CODE STATUS to DNR status and hospice consult requested. Patient's daughter states that she prefers [facility] according to RN. Angel Merritt MD Nov 19, 2016 18:54
[2016-11-19] MEDS: CEFEPIME INJ 2,000 MG in SODIUM CHLORIDE 0.9% INJ 100 ML IV SCH (20:07)
[2016-11-19] MEDS: MULTIVITAMIN INJ 10 ML, FOLIC ACID INJ 1 MG in SODIUM CHLORID 0.9% 500 ML INJ 500 ML IV SCH (21:00)
[2016-11-19 21:19] LABS: APTT (PATIENT) 31.8 SEC (24.3-30.1)
[2016-11-20] VITALS: BP 74/50; PULSE 81; RESP 8; TEMP 97.3
[2016-11-20 00:20] LABS: HEMATOCRIT 16.6 % (39.0-51.0)
[2016-11-20] MEDS: HYDROCORTISONE SOD SUCCINATE 100 MG VIAL IV PUSH SCH ×2 (01:43→06:16)
[2016-11-20] MEDS: NOREPINEPHRINE-DEXTROSE DRIP 250 ML IV SCH (01:44)
[2016-11-20 02:00] VITALS: PULSE 78
[2016-11-20] MEDS: DEXTROSE 5%-LACTATED RING INJ 1,000 ML IV SCH (03:45)
[2016-11-20 04:00] VITALS: BP 94/51; PULSE 82; RESP 12; TEMP 96.7
[2016-11-20] MEDS: CHLORHEXIDINE GLUCONATE 2 % 1 PACK (2 CLOTHS) TOP SCH (04:00)
[2016-11-20 04:23] LABS: AUTOMATED NEUTROPHIL # 7.3 TH/MM3 (1.8-7.7); LYMPHOCYTE # 0.2 TH/MM3 (1.0-4.8); MEAN CELL VOLUME 102.7 FL (80.0-100.0); MEAN CORPUSCULAR HEMOGLOBIN 34.8 PG (27.0-34.0); MEAN CORPUSCULAR HGB CONC 33.9 % (32.0-36.0); MONO % 2.6 % (0.0-8.0); NEUT % 95.4 % (16.0-70.0); PLATELET COUNT 54 TH/MM3 (150-450); RED CELL DISTRIBUTION WIDTH 13.5 % (11.6-17.2); WHITE BLOOD COUNT 7.7 TH/MM3 (4.0-11.0)
[2016-11-20 04:39] LABS: HEMO FLAGS AUTO DIFF
[2016-11-20 04:41] LABS: HEMATOCRIT 14.4 % (39.0-51.0)
[2016-11-20 04:42] LABS: APTT (PATIENT) 33.8 SEC (24.3-30.1)
[2016-11-20 04:45] LABS: BICARBONATE 31.3 MEQ/L (21.0-32.0); CALCIUM-PROTEIN CORRECTED 9.1 MG/DL (8.5-10.1); MAGNESIUM 1.6 MG/DL (1.5-2.5); POTASSIUM 3.6 MEQ/L (3.5-5.1); TOTAL BILIRUBIN ADULT 1.4 MG/DL (0.2-1.0)
[2016-11-20 06:00] VITALS: PULSE 84
[2016-11-20 07:24] LABS: ACANTHOCYTES OCC (NORMAL)
[2016-11-20 07:25] LABS: PLATELET ESTIMATE SMEAR LOW (NORMAL); PLATELET MORPHOLOGY NORMAL (NORMAL); SCAN/DIFF AUTO DIFF CONFIRMED
[2016-11-20] MEDS ORDERED: LORazepam 2 MG/ML VIAL IV PUSH PRN (07:30)
[2016-11-20] MEDS ORDERED: MORPHINE SULFATE 4 MG/ML INJ IV PUSH PRN (07:30)
--- NOTE | 2016-11-20 07:49 | HHI.CCPN ---
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 He underwent chemotherapy (TPF) and radiation in 2015 and had residual disease. He also has a long standing history of alcohol abuse, tobacco abuse, cocaine abuse and has had poor compliance with followup with heme-oncology. He is a very difficult historian and is currently encephalopathic, so it is difficult for me to ascertain what his most recent chemo/radiation history has been. According to notes from Dr. Marc Escalona, 09/15/16 he was supposed to start concurrent chemo/ radiation. Pt states that he has been on radiation therapy 5 days a week as recently as a week ago. He states his last chemo therapy was "earlier this year " but that he has not been following up for chemo. He is homeless and states that he resides in a garage on [address] [facility]. He indicates that he has been taking hydromorphone 4 mg tabs for pain and gets 60 tabs a week. He states he ran out 2 days ago and he complains of pain and is repeatedly requesting hydromorphone. He also indicates that he has had difficulty eating because of pain and that, while he takes minimal amounts of Boost and Ensure at baseline, that he has had nothing to eat or drink for about 2 days. States he has never had a PEG (despite recommendations for one) and states "I never want one either ". Denies vomiting. States he has been constipated for about 2 weeks. Has had a slight cough, + chills. Had difficulty recalling last EtOH intake, said it may have been about 2 days ago. ED workup reveals creatinine of 2.57 (baseline 0.9- 1), AST 2300, ALT 1100, total bilirubin 5.1, lipase normal. Ammonia level is 108. Coags not yet performed. Lactic acid was 1.7. Troponin is 1.06. He has received 1/2 amps of D50 x2 for hypoglycemia (POC glucose 58). He has received 3 L NS bolus and was placed on D5 LR in the ED. Received cefepime and Levaquin. 11/17: Remains drowsy, arousable, knows he is at the hospital. Not in any acute distress currently. 2-D echo revealed LV thrombus so he was initiated on heparin for anticoagulation. 11/19: Reconsulted by Dr. Ferguson for rectal bleeding which started last night followed by hypotension today. Received 1 L fluid bolus however remained hypotensive with systolic blood pressure in the 70s. 2 units FFP is ordered earlier. When I evaluated the patient and he was drowsy but easily arousable. Confused. He denied any shortness of breath or chest pain at the time and did not appear to be in any acute distress. I ordered 1 unit of pheresis platelets. He has already been initiated on stress dose steroids. Dr. Ferguson discussed CODE STATUS with family and they wish to defer decision to her tomorrow and he will remain full CODE STATUS. No active rectal bleeding noted at the time of my evaluation. 11/20: Patient was made DNR status with hospice consult on 11/19 per patient's daughter's request. His hemoglobin continued to drop overnight and he has remained on Levophed. I spoke with patient's daughter Janeth by phone this morning and updated her regarding his status. She wishes to transition to full comfort measures at this time and stop aggressive care including blood transfusions and pressors. Objective Vital Signs Date Time Temp Pulse Resp B/P Pulse Ox O2 Delivery O2 Flow Rate FiO2 11/20/16 06:00 84 11/20/16 04:00 96.7 12 94/51 11/20/16 01:06 Nasal Cannula 2.00 11/19/16 16:00 97 Intake and Output 11/19/16 11/19/16 11/20/16 08:00 16:00 00:00 Intake Total 1340 ml 1941 ml 1143 ml Output Total 500 ml 800 ml 1100 ml Balance 840 ml 1141 ml 43 ml Result Diagram: 11/20/16 0400 11/20/16 0400 Imaging Last Impressions Head CT 11/16/167 Signed Impressions: Service Date/Time: October 19:06 - CONCLUSION: Slight atrophic and small vessel ischemic changes without any evidence for acute hemorrhage or mass effect. Davin Salinas MD Chest X-Ray 11/16/16 1716 Signed Impressions: Service Date/Time: October 17:26 - CONCLUSION: 1. No acute cardiopulmonary disease. 2. Stable large bleb in the left lung. Rizwan Tyson MD Liver Ultrasound 11/16/16 0000 Signed Impressions: Service Date/Time: October 22:10 - CONCLUSION: 1. Small and diffusely heterogeneous liver without a focal lesion. There is small ascites but no splenomegaly. 2. Small sludge/debris within the gallbladder. No evidence of biliary obstruction. 3. Echogenic right kidney typical of chronic parenchymal disease. There is no hydronephrosis. Small, simple/benign cysts are noted. Jose Saucedo MD Abdomen/Pelvis CT 11/16/16 0000 Signed Impressions: Service Date/Time: October 23:55 - CONCLUSION: 1. Small liver with small ascites and diffuse body wall edema/anasarca. 2. No focal lesion or localized inflammatory changes are demonstrated. 3. Large bleb/bullae seen of both visualized lung bases. 4. Lumbar spine findings as above, including a right paracentral disc protrusion at L4/L5. Jose Saucedo MD Objective Remarks GENERAL:Emaciated frail appearing male laying in bed not in any acute distress SKIN: peripherally cool, dry. HEAD: Atraumatic. Normocephalic. EYES: Pupils equal and round, reactive. +icteric. ENT: Pallor present. No nasal bleeding or discharge. Mucous membranes dry with mucositis on tongue. NECK: Trachea midline. no JVD. CHEST: mass like deformity of distal Left clavicle. CARDIOVASCULAR: S1 and S2 regular, 2/6 systolic murmur RSM. RESPIRATORY: Port right chest. CTAB, no w/r/rhonchi. GASTROINTESTINAL: Abdomen scaphoid, vague diffuse abdominal tenderness, no rebound. Bowel sounds sluggish MUSCULOSKELETAL: Extremities without clubbing, cyanosis, or edema. No obvious deformities. NEUROLOGICAL: Encephalopathic, not following commands.Moves all extremities. A/P Assessment and Plan NEURO: Failure to thrive Acute metabolic encephalopathy/hepatic encephalopathy Cocaine abuse Marijuana abuse Alcohol abuse Hyperammonemia Severe volume depletion currently so will hold off on lactulose for now. Rifaximin 550 mg by mouth twice a day. Follow-up ammonia level. CT brain - no acute abnormality UDS positive for cocaine, THC. Checked APAP and ASA which were negative. RESP: Tobacco abuse L lung bleb Nasal cannula CV: Hyperlipidemia History of hypertension Elevated troponin, ? cocaine induced vs type II NSTEMI in setting of multiorgan dysfunction. Hypotension Echo with LVEF 20%, LV thrombus. Dr. Santos from cardiology following. Anticoagulation with heparin held due to rectal bleeding. On Levophed for pressor support. GI: Dysphagia Severe chronic protein energy malnutrition Jaundice, Elevated LFTs Constipation Rectal bleeding Acute liver failure may be secondary to alcoholic hepatitis, chemotherapeutic/ drug toxicity, metastatic disease, infectious/sepsis. Likely underlying cirrhosis. GI following. Refuses NG tube or PEG tube placement. Magic mouthwash for mucositis. No further transfusions following discussion with patient's daughter regarding transition to comfort measures. FEN/RENAL: Acute kidney injury Acute rhabdomyolysis Hypermagnesemia Hyperphosphatemia Strict intake output, monitor I/O. Monitor creatinine and electrolytes. ID: Follow up urine and blood cultures on admission with no growth. Given dose of vancomycin to cover for sepsis in setting of port. Has h/o pcn allergy, tolerated cefepime in ED so will continue empirically for sepsis/SBP tx /prophylaxis. Repeat blood cultures sent 11/19 HEME: Stage IV Squamous cell carcinoma head and neck Erythrocyte macrocytosis Consulted heme-oncology, patient known to Dr. Escalona. Cannot Anticoagulate with heparin for LV thrombus in setting of rectal bleeding. No further transfusions as patient's daughter has elected to make him comfort measures only and wishes to stop aggressive care. ENDO: Acute hypoglycemia Monitor glucose q 4hours. Stopping IV fluids and stress dose steroids for transitioning to comfort measures PROPH: SCDs for DVT prophylaxis. Protonix 40 mg IV daily for stress ulcer prophylaxis. No heparin currently in view of rectal bleeding ACCESS: R chest port. PIV in place Patient with failure to thrive and poor adherence to therapy for stage IV squamous cell carcinoma of head and neck now with multiorgan dysfunction and poor prognosis. Adherence must be exceedingly challenging given his social circumstances and polysubstance dependence. He told me that he wants his brother , Sly Arcos, to make medical decisions on his behalf when he is unable to make decisions. He currently is able to provide some history but he does not appear fully capacitated for medical decision making as he is confused at times and had inconsistent responses to the same questions. Nonetheless, attempted to discuss code status and he states he is FULL CODE. Consulted palliative care medicine to help facilitate decisions regarding goals of care Discussed with patient's daughter (Janeth - [phone]) on 11/20: She wishes to stop all aggressive care and wishes to transition to comfort measures only. She does not want to continue any aggressive treatment including pressors and blood transfusions. Blood transfusion order was canceled. We are going to discontinue pressors and all other medications. Will use Ativan and morphine as needed for anxiety/discomfort. Condition critical Time spent on critical care excluding procedures 30 minutes including discussing plan of care with patient's daughter this morning by phone. Angel Merritt MD November 20, 2016 07:49
[2016-11-20] MEDS: MORPHINE SULFATE 4 MG/ML INJ IV PUSH SCH ×3 (07:51→12:23)
[2016-11-20] MEDS: SODIUM CHLORIDE 0.9% FLUSH 10 ML FLUSH SCH (07:52)
[2016-11-20 08:00] VITALS: BP 122/67; PULSE 76; RESP 12; TEMP 96.8; O2SAT 92
[2016-11-20] MEDS: NYSTAT/DIPHENHY/LIDO MOUTHWASH (Adult) 120ML SWISH-SWAL SCH (09:00)
--- NOTE | 2016-11-20 09:23 | PD.ONC.PN ---
Subjective Subjective Remarks Afebrile overnight. Pt resting supine in bed in no distress. Per RN, he has recently been made comfort care only. No transfusions. Hospice to see him today. Objective Data Date Time Temp Pulse Resp B/P Pulse Ox O2 Delivery O2 Flow Rate FiO2 11/20/16 06:00 84 11/20/16 04:00 96.7 82 12 94/51 11/20/16 04:00 82 11/20/16 02:00 78 11/20/16 01:06 Nasal Cannula 2.00 11/20/16 00:00 97.3 81 8 74/50 11/20/16 00:00 81 11/19/16 22:00 83 11/19/16 20:00 70 11/19/16 20:00 96.8 70 10 107/65 11/19/16 18:00 70 11/19/16 16:00 98.2 77 12 71/54 97 11/19/16 16:00 81 11/19/16 14:00 72 11/19/16 12:23 12 11/19/16 12:00 98.1 70 12 93/64 99 11/19/16 12:00 70 11/19/16 10:00 64 11/20/16 11/20/16 11/20/16 07:00 15:00 23:00 Intake Total 1910 ml Output Total 400 ml Balance 1510 ml Result Diagram: 11/20/16 0400 11/20/16 0400 Laboratory Results Laboratory Tests Test 11/19/16 11/19/16 11/19/16 11/19/16 14:36 16:20 16:21 16:49 Activated Partial 24.8 SEC 37.4 SEC Thromboplast Time Hemoglobin 8.2 GM/DL Hematocrit 24.8 % Prothrombin Time 14.9 SEC Prothromb Time International 1.3 RATIO Ratio Blood Bank Comment Test 11/19/16 11/19/16 11/20/16 11/20/16 20:30 23:00 03:00 04:00 Activated Partial 31.8 SEC 33.8 SEC Thromboplast Time Hemoglobin 5.5 GM/DL 4.9 GM/DL Hematocrit 16.6 % 14.4 % White Blood Count 7.7 TH/MM3 Red Blood Count 1.40 MIL/MM3 Mean Corpuscular Volume 102.7 FL Mean Corpuscular Hemoglobin 34.8 PG Mean Corpuscular Hemoglobin 33.9 % Concent Red Cell Distribution Width 13.5 % Platelet Count 54 TH/MM3 Mean Platelet Volume 8.7 FL Neutrophils (%) (Auto) 95.4 % Lymphocytes (%) (Auto) 2.0 % Monocytes (%) (Auto) 2.6 % Eosinophils (%) (Auto) 0.0 % Basophils (%) (Auto) 0.0 % Neutrophils # (Auto) 7.3 TH/MM3 Lymphocytes # (Auto) 0.2 TH/MM3 Monocytes # (Auto) 0.2 TH/MM3 Eosinophils # (Auto) 0.0 TH/MM3 Basophils # (Auto) 0.0 TH/MM3 CBC Comment AUTO DIFF Differential Comment AUTO DIFF CONFIRMED Platelet Estimate LOW Platelet Morphology Comment NORMAL Acanthocytes OCC Fibrinogen 116 mg/dL Sodium Level 144 MEQ/L Potassium Level 3.6 MEQ/L Chloride Level 107 MEQ/L Carbon Dioxide Level 31.3 MEQ/L Anion Gap 6 MEQ/L Blood Urea Nitrogen 50 MG/DL Creatinine 0.86 MG/DL Estimat Glomerular Filtration 110 ML/MIN Rate Random Glucose 164 MG/DL Calcium Level 7.3 MG/DL Protein Corrected Calcium 9.1 MG/DL Phosphorus Level 1.4 MG/DL Magnesium Level 1.6 MG/DL Total Bilirubin 1.4 MG/DL Aspartate Amino Transf 522 U/L (AST/SGOT) Alanine Aminotransferase 456 U/L (ALT/SGPT) Alkaline Phosphatase 619 U/L Ammonia 61 MCMOL/L Troponin I 1.52 NG/ML Total Protein 4.1 GM/DL Albumin 2.0 GM/DL Test 11/20/16 05:30 Blood Type A POSITIVE Antibody Screen NEGATIVE Crossmatch Leukocyte-Reduced Red Blood Cells Blood Bank Comment Culture Results Microbiology Date/Time Procedure Status Source Growth 11/19/16 16:35 Aerobic Blood Culture Received Blood Line Pending 11/19/16 16:35 Anaerobic Blood Culture Received Blood Line Pending 11/19/16 21:21 Aerobic Blood Culture Received Blood Line Pending 11/19/16 21:21 Anaerobic Blood Culture Received Blood Line Pending Administered Medications Medications (Trade) Dose Ordered Sig/Karon Route PRN Reason Start Time Stop Time Status Last Admin Dose Admin Sodium Chloride (NS Flush) 2 ml UNSCH PRN IVF FLUSH AFTER USING IV ACCESS 11/16/16 17:15 11/16/16 21:59 Hydromorphone HCl (Dilaudid Pf Inj) 0.2 mg Q4H PRN IV PUSH PAIN 1-3 11/16/16 21:30 11/19/16 20:10 Hydromorphone HCl (Dilaudid Pf Inj) 0.5 mg Q4H PRN IV PUSH PAIN 4-8 11/16/16 21:30 11/19/16 11:53 Hydromorphone HCl (Dilaudid Pf Inj) 1 mg Q4H PRN IV PUSH PAIN 9-10/10 11/16/16 21:30 11/18/16 09:08 Sodium Chloride (NS Flush) 2 ml BID .XX 11/17/16 09:00 11/20/16 07:52 Chlorhexidine Gluconate (Chlorhexidine 2% Cloth) 3 pack Taper DAILY@04 TOP 11/17/16 04:00 11/13/17 03:59 11/20/16 04:00 Multi-Ingredient Mouthwash/Gargle 5 ml 5 ml QID SWISH-SWAL 11/17/16 09:00 11/19/16 20:49 Multivitamins/ Folic Acid/Sodium Chloride (Mvi-12 Inj/ Folvite Inj/NS 500 ml Inj) 510.2 ml @ 100 mls/hr Q24H IV 11/17/16 21:00 11/22/16 20:59 11/19/16 21:00 Morphine Sulfate (Morphine Inj) 4 mg Q4HR IV PUSH 11/20/16 07:30 11/20/16 07:51 Objective Remarks GENERAL: Chronically ill, malnourished male lying supine in bed in [facility]. SKIN: Warm and dry. HEAD: Normocephalic. NECK: Trachea midline. CARDIOVASCULAR: Regular rate and rhythm without murmurs. RESPIRATORY: Rhonchi throughout. GASTROINTESTINAL: Abdomen soft, non-tender, nondistended. EXTREMITIES: No edema. NEUROLOGICAL: Attempts to open eyes when stimulated. Recent narcotic administration. Assessment/Plan Problem List: (1) Intracardiac thrombus Status: Acute Plan: --2-D echocardiogram showed significant left ventricular dysfunction with an ejection fraction of 20% with severe global hypokinesis, mild mitral and tricuspid regurgitation. --also found to have a very large left ventricular thrombus. --cannot tolerate heparin d/t GI bleed + coagulopathy (2) Coagulopathy Status: Acute Plan: --d/t DIC, multiorgan failure (3) Head and neck cancer Status: Acute Plan: --not a candidate for any type of treatment --palliative care following --Comfort care only at this point. 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 h/o Polysubstance abuse. Alcohol abuse. Hypertension. Hyperlipidemia. Plan 1. Pt made comfort care only. Family does not wish for any further treatments or transfusions. 2. We will sign off at this point. Please call if needed. Attending Statement The exam, history, and the medical decision-making described in the above note were completed with the assistance of the mid-level provider. I reviewed and agree with the findings presented. I attest that I had a [id number] encounter with the patient on the same day, and personally performed and documented my assessment and findings in the medical record Carrie Lorenz November 20, 2016 09:23 Danish Escalona MD November 21, 2016 00:16
[2016-11-20 10:00] VITALS: PULSE 86
[2016-11-21 19:54] LABS: MITOCHONDRIAL ABS LESS THAN 20.0 U (())
--- NOTE | 2017-01-05 17:57 | HHI.DS ---
Discharge Summary Admission Date Nov 16, 2016 at 20:08 Admitting Diagnosis Alt Mental Status/Hepatitits/Renal Failure/encephalopathy (1) Head and neck cancer ICD Code: C76.0 Diagnosis: Principal (2) Intracardiac thrombus ICD Code: I51.3 (3) GI bleed ICD Code: K92.2 (4) Encephalopathy acute ICD Code: G93.40 (5) Coagulopathy ICD Code: D68.9 (6) Thrombocytopenia ICD Code: D69.6 (7) Acute liver failure ICD Code: K72.00 (8) Acute hepatitis ICD Code: B17.9 (9) MINO (acute kidney injury) ICD Code: N17.9 (10) Hyperammonemia ICD Code: E72.20 (11) Hypoglycemia ICD Code: E16.2 (12) Hypernatremia ICD Code: E87.0 (13) Hypophosphatemia ICD Code: E83.39 (14) Drug abuse and dependence ICD Code: F19.20 (15) Hypoglycemia ICD Code: E16.2 (16) ETOH abuse ICD Code: F10.10 (17) Hypertension ICD Code: I10 (18) Failure to thrive in adult ICD Code: R62.7 (19) Bilateral lower extremity pain ICD Code: M79.604 Brief History 61 yo AAM with PMH 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 He underwent chemotherapy (TPF) and radiation in 2016 and had residual disease. He also has a long standing history of alcohol abuse, tobacco abuse, cocaine abuse and has had poor compliance with followup with heme-oncology. He is a very difficult historian and is currently encephalopathic, so it is difficult for me to ascertain what his most recent chemo/radiation history has been. According to notes from Dr. Marc Escalona, 09/15/16 he was supposed to start concurrent chemo/ radiation. Pt states that he has been on radiation therapy 5 days a week as recently as a week ago. He states his last chemo therapy was "earlier this year " but that he has not been following up for chemo. He is homeless and states that he resides in a garage on [facility]. He indicates that he has been taking hydromorphone 4 mg tabs for pain and gets 60 tabs a week. He states he ran out 2 days ago and he complains of pain and is repeatedly requesting hydromorphone. He also indicates that he has had difficulty eating because of pain and that, while he takes minimal amounts of Boost and Ensure at baseline, that he has had nothing to eat or drink for about 2 days. States he has never had a PEG (despite recommendations for one) and states "I never want one either ". Denies vomiting. States he has been constipated for about 2 weeks. Has had a slight cough, + chills. Had difficulty recalling last EtOH intake, said it may have been about 2 days ago. ED workup reveals creatinine of 2.57 (baseline 0.9- 1), AST 2300, ALT 1100, total bilirubin 5.1, lipase normal. Ammonia level is 108. Coags not yet performed. Lactic acid was 1.7. Troponin is 1.06. He has received 1/2 amps of D50 x2 for hypoglycemia (POC glucose 58). He has received 3 L NS bolus and was placed on D5 LR in the ED. Received cefepime and Levaquin. Imaging Last Impressions Lower Extremity Ultrasound 11/18/16 0000 Signed Impressions: Service Date/Time: Friday, November 18, 2016 20:58 - CONCLUSION: Normal examination. Davin Salinas MD Head CT 11/16/16 1727 Signed Impressions: Service Date/Time: October 19:06 - CONCLUSION: Slight atrophic and small vessel ischemic changes without any evidence for acute hemorrhage or mass effect. Davin Salinas MD Chest X-Ray 11/16/16 1716 Signed Impressions: Service Date/Time: October 17:26 - CONCLUSION: 1. No acute cardiopulmonary disease. 2. Stable large bleb in the left lung. Rizwan Tyson MD Liver Ultrasound 11/16/16 0000 Signed Impressions: Service Date/Time: October 22:10 - CONCLUSION: 1. Small and diffusely heterogeneous liver without a focal lesion. There is small ascites but no splenomegaly. 2. Small sludge/debris within the gallbladder. No evidence of biliary obstruction. 3. Echogenic right kidney typical of chronic parenchymal disease. There is no hydronephrosis. Small, simple/benign cysts are noted. Jose Saucedo MD Abdomen/Pelvis CT 11/16/16 0000 Signed Impressions: Service Date/Time: October 23:55 - CONCLUSION: 1. Small liver with small ascites and diffuse body wall edema/anasarca. 2. No focal lesion or localized inflammatory changes are demonstrated. 3. Large bleb/bullae seen of both visualized lung bases. 4. Lumbar spine findings as above, including a right paracentral disc protrusion at L4/L5. Jose Saucedo MD PE at Discharge GENERAL:Emaciated frail appearing male laying in bed not in any acute distress SKIN: peripherally cool, dry. HEAD: Atraumatic. Normocephalic. EYES: Pupils equal and round, reactive. +icteric. ENT: No nasal bleeding or discharge. Mucous membranes dry with mucositis on tongue. Palpable ~1.5 cm nodule at left angle of mandible. NECK: Trachea midline. no JVD. CHEST: mass like deformity of distal Left clavicle. CARDIOVASCULAR: occasional irregular beat, 2/6 systolic murmur RSM. RESPIRATORY: Port right chest. CTAB, no w/r/rhonchi. GASTROINTESTINAL: Abdomen scaphoid, vague diffuse abdominal tenderness, no rebound. Bowel sounds sluggish. there is red blood in the bed. MUSCULOSKELETAL: Extremities without clubbing, cyanosis, or edema. No obvious deformities. NEUROLOGICAL: Awake and conversant but confused at times. No obvious cranial nerve deficits. 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 He underwent chemotherapy (TPF) and radiation in 2016 and had residual disease. He also has a long standing history of alcohol abuse, tobacco abuse, cocaine abuse and has had poor compliance with followup with heme-oncology. He is a very difficult historian and is currently encephalopathic, so it is difficult for me to ascertain what his most recent chemo/radiation history has been. According to notes from Dr. Marc Escalona, 09/15/16 he was supposed to start concurrent chemo/ radiation. Pt states that he has been on radiation therapy 5 days a week as recently as a week ago. He states his last chemo therapy was "earlier this year " but that he has not been following up for chemo. He is homeless and states that he resides in a garage on [facility]. He indicates that he has been taking hydromorphone 4 mg tabs for pain and gets 60 tabs a week. He states he ran out 2 days ago and he complains of pain and is repeatedly requesting hydromorphone. He also indicates that he has had difficulty eating because of pain and that, while he takes minimal amounts of Boost and Ensure at baseline, that he has had nothing to eat or drink for about 2 days. States he has never had a PEG (despite recommendations for one) and states "I never want one either ". Denies vomiting. States he has been constipated for about 2 weeks. Has had a slight cough, + chills. Had difficulty recalling last EtOH intake, said it may have been about 2 days ago. ED workup reveals creatinine of 2.57 (baseline 0.9- 1), AST 2300, ALT 1100, total bilirubin 5.1, lipase normal. Ammonia level is 108. Coags not yet performed. Lactic acid was 1.7. Troponin is 1.06. He has received 1/2 amps of D50 x2 for hypoglycemia (POC glucose 58). He has received 3 L NS bolus and was placed on D5 LR in the ED. Received cefepime and Levaquin. 11/17: Remains drowsy, arousable, knows he is at the hospital. Not in any acute distress currently. 2-D echo revealed LV thrombus so he was initiated on heparin for anticoagulation. 11/19: Reconsulted by Dr. Ferguson for rectal bleeding which started last night followed by hypotension today. Received 1 L fluid bolus however remained hypotensive with systolic blood pressure in the 70s. 2 units FFP is ordered earlier. When I evaluated the patient and he was drowsy but easily arousable. Confused. He denied any shortness of breath or chest pain at the time and did not appear to be in any acute distress. I ordered 1 unit of pheresis platelets. He has already been initiated on stress dose steroids. Dr. Ferguson discussed CODE STATUS with family and they wish to defer decision to her tomorrow and he will remain full CODE STATUS. No active rectal bleeding noted at the time of my evaluation. 11/20: A/P Assessment and Plan NEURO: Failure to thrive Acute metabolic encephalopathy/hepatic encephalopathy Cocaine abuse Marijuana abuse Alcohol abuse Hyperammonemia Severe volume depletion currently so will hold off on lactulose for now. Rifaximin 550 mg by mouth twice a day. Follow-up ammonia level. CT brain - no acute abnormality UDS positive for cocaine, THC. Checked APAP and ASA which were negative. RESP: Tobacco abuse L lung bleb Nasal cannula CV: Hyperlipidemia History of hypertension Elevated troponin, ? cocaine induced vs type II NSTEMI in setting of multiorgan dysfunction. Hypotension Echo with LVEF 20%, LV thrombus. Dr. Santos from cardiology following. Anticoagulation with heparin held due to rectal bleeding. On Levophed for pressor support. GI: Dysphagia Severe chronic protein energy malnutrition Jaundice, Elevated LFTs Constipation Rectal bleeding Acute liver failure may be secondary to alcoholic hepatitis, chemotherapeutic/ drug toxicity, metastatic disease, infectious/sepsis. Likely underlying cirrhosis. GI following. Refuses NG tube or PEG tube placement. Magic mouthwash for mucositis. No further transfusions following discussion with patient's daughter regarding transition to comfort measures. FEN/RENAL: Acute kidney injury Acute rhabdomyolysis Hypermagnesemia Hyperphosphatemia Strict intake output, monitor I/O. Monitor creatinine and electrolytes. ID: Follow up urine and blood cultures on admission with no growth. Given dose of vancomycin to cover for sepsis in setting of port. Has h/o pcn allergy, tolerated cefepime in ED so will continue empirically for sepsis/SBP tx /prophylaxis. Repeat blood cultures sent 11/19 HEME: Stage IV Squamous cell carcinoma head and neck Erythrocyte macrocytosis Consulted heme-oncology, patient known to Dr. Escalona. Cannot Anticoagulate with heparin for LV thrombus in setting of rectal bleeding. No further transfusions as patient's daughter has elected to make him comfort measures only and wishes to stop aggressive care. ENDO: Acute hypoglycemia Monitor glucose q 4hours. Stopping IV fluids and stress dose steroids for transitioning to comfort measures PROPH: SCDs for DVT prophylaxis. Protonix 40 mg IV daily for stress ulcer prophylaxis. No heparin currently in view of rectal bleeding ACCESS: R chest port. PIV in place Patient with failure to thrive and poor adherence to therapy for stage IV squamous cell carcinoma of head and neck now with multiorgan dysfunction and poor prognosis. Adherence must be exceedingly challenging given his social circumstances and polysubstance dependence. He told me that he wants his brother , Sly Arcos, to make medical decisions on his behalf when he is unable to make decisions. He currently is able to provide some history but he does not appear fully capacitated for medical decision making as he is confused at times and had inconsistent responses to the same questions. Consulted palliative care medicine to help facilitate decisions regarding goals of care Discussed with patient's daughter (Janeth - [phone]) on 11/20: She wishes to stop all aggressive care and wishes to transition to comfort measures only. She does not want to continue any aggressive treatment including pressors and blood transfusions. Blood transfusion order was canceled. Stopped pressors and all other medications. Ativan and morphine as needed for anxiety/ discomfort. Patient's daughter agreed with hospice. Patient was accepted and subsequently discharged to hospice care center with [facility] on 11/20/16 Pt Condition on Discharge: Guarded Discharge Disposition: Hospice/Med Facility Discharge Instructions DIET: Follow Instructions for: Nothing By Mouth Activities you can perform: See Additionl Instruction Angel Merritt MD Jan 05, 2017 17:57
== END 2016-11-20 12:40 | disposition hospice, inpatient (51) | DRG 441 ==
LOC: NEPC 17:06 → NEDA 20:08 → HIME 23:55
PROVIDERS: ADMIT Emergency Medicine; ATTEND Emergency Medicine
PROC: 30233K1 Transfusion of Nonautologous Frozen Plasma into Peripheral Vein, Percutaneous Approach (ICD-10-PCS; principal; 2016-11-19)
PROC: 30233R1 Transfusion of Nonautologous Platelets into Peripheral Vein, Percutaneous Approach (ICD-10-PCS; 2016-11-19)
DX: K72.00 Acute and subacute hepatic failure without coma (principal); D65 Disseminated intravascular coagulation [defibrination syndrome]; K76.7 Hepatorenal syndrome; G93.41 Metabolic encephalopathy; E43 Unspecified severe protein-calorie malnutrition; N17.9 Acute kidney failure, unspecified; R64 Cachexia; I95.9 Hypotension, unspecified; K92.2 Gastrointestinal hemorrhage, unspecified; M62.82 Rhabdomyolysis; Z68.1 Body mass index [BMI] 19.9 or less, adult; F19.20 Other psychoactive substance dependence, uncomplicated; E87.0 Hyperosmolality and hypernatremia; I42.9 Cardiomyopathy, unspecified; R04.2 Hemoptysis; C76.0 Malignant neoplasm of head, face and neck; K70.11 Alcoholic hepatitis with ascites; R13.10 Dysphagia, unspecified; E83.41 Hypermagnesemia; E78.5 Hyperlipidemia, unspecified; R62.7 Adult failure to thrive; K74.60 Unspecified cirrhosis of liver; K59.00 Constipation, unspecified; E86.0 Dehydration; E16.2 Hypoglycemia, unspecified; E83.39 Other disorders of phosphorus metabolism; K12.30 Oral mucositis (ulcerative), unspecified; D75.89 Other specified diseases of blood and blood-forming organs; I50.9 Heart failure, unspecified; I11.0 Hypertensive heart disease with heart failure; I49.3 Ventricular premature depolarization; J43.9 Emphysema, unspecified; I51.3 Intracardiac thrombosis, not elsewhere classified; I08.1 Rheumatic disorders of both mitral and tricuspid valves; E87.6 Hypokalemia; M51.26 Other intervertebral disc displacement, lumbar region; R04.0 Epistaxis; F12.10 Cannabis abuse, uncomplicated; F14.10 Cocaine abuse, uncomplicated; F17.200 Nicotine dependence, unspecified, uncomplicated; F39 Unspecified mood [affective] disorder; Y90.0 Blood alcohol level of less than 20 mg/100 ml; Z51.5 Encounter for palliative care; Z59.0 Homelessness; Z66 Do not resuscitate; Z88.0 Allergy status to penicillin; Z91.19 Patient's noncompliance with other medical treatment and regimen; Z92.21 Personal history of antineoplastic chemotherapy; Z92.3 Personal history of irradiation
CPT/HCPCS: 36430; 70450; 71010; 74176; 76705; 76937; 80048; 80053; 80069; 80074; 80076; 80307; 81001; 82010; 82103; 82105; 82140; 82247; 82248; 82390; 82550; 82552; 82570; 82607; 82728; 82746; 82948; 83520; 83540; 83550; 83605; 83690; 83735; 83930; 84100; 84300; 84484; 85007; 85014; 85018; 85025; 85027; 85384; 85610; 85730; 86038; 86256; 86850; 86880; 86900; 86901; 86920; 86927; 87040; 87086; 87205; 87641; 93005; 93306; 93970; 96361; 96365; 96375; 96376; C9113; J0692; J1170; J1644; J1720; J1940; J2270; J3411; J3475; J3480; J7030; J7040; J7042; J7050; J7070; J7121; P9017; P9035; Q9963